=== PATIENT | female | born 1935 | race Caucasian/White ===

== ENCOUNTER 2019-06-30 01:27 | Inpatient (IN) ==
--- NOTE | 2019-06-23 13:02 | EKG Report ---
Test Performed on : 06/23/2019 12:49:15 PM Test Reason : pat Blood Pressure : / mmHG Vent. Rate : 099 BPM Atrial Rate : 300 BPM P-R Int : 000 ms QRS Dur : 134 ms QT Int : 390 ms P-R-T Axes : 000 078 011 degrees QTc Int : 500 ms Atrial fibrillation. Right bundle branch block Abnormal ECG When compared with ECG of 12-DEC-2012 04:20, Atrial fibrillation. has replaced Sinus rhythm. Right bundle branch block is now present Unconfirmed Result
[2019-06-23 13:38] LABS: HEMATOCRIT 38.5 % (37.0-47.0); HEMOGLOBIN 11.9 g/dL (12.0-16.0); MCH 26.2 PG (27-31); MCHC 30.9 g/dL (33-37); MCV 84.8 FL (81-99); RBC 4.54 XMIL (4.2-5.4); RDW 14.7 % (11.5-14.5); WBC 9.28 X1000 (4.8-10.8)
[2019-06-23 15:01] LABS: CALCIUM 9.4 mg/dL (8.8-10.2); CREATININE 0.9 mg/dL (0.5-0.9)
[2019-06-30] MEDS ORDERED: ENTEREG ONE (06:17)
[2019-06-30] MEDS ORDERED: PEPCID ONE (06:17)
[2019-06-30] MEDS ORDERED: INVANZ 1 GM/NS 1 GM/50 ML IVPB ONE (06:17)
[2019-06-30] MEDS ORDERED: LR 1,000 ML ONE ×3 (06:17→10:36)
[2019-06-30] MEDS ORDERED: TOPROL XL ONE (06:54)
[2019-06-30] MEDS ORDERED: CARDIZEM CD PO ONE (07:00)
[2019-06-30] MEDS ORDERED: DIPRIVAN 1% ONE (07:09)
[2019-06-30] MEDS ORDERED: XYLOCAINE-MPF 2% ONE (07:18)
[2019-06-30] MEDS ORDERED: ZEMURON ONE (07:18)
[2019-06-30] MEDS ORDERED: ZOFRAN ONE (07:18)
[2019-06-30] MEDS ORDERED: MARCAINE 0.25% ONE (07:34)
[2019-06-30] MEDS ORDERED: EXPAREL 1.3% ONE (07:34)
[2019-06-30] MEDS ORDERED: DECADRON ONE (09:00)
[2019-06-30] MEDS ORDERED: OFIRMEV 1000 MG/ISOTONIC SOLN 1,000 MG/100 ML BOTTLE ONE (09:03)
[2019-06-30 09:44] LABS: URINE SOURCE CATH
[2019-06-30 09:54] LABS: BILIRUBIN URINE NEGATIVE (NEGATIVE); BLOOD URINE NEGATIVE (NEGATIVE); COLOR YELLOW; GLUCOSE URINE NEGATIVE (NEGATIVE); KETONE URINE TRACE mg/dL (NEGATIVE); LEUKOCYTES URINE NEGATIVE (NEGATIVE); NITRITE URINE NEGATIVE (NEGATIVE); PH URINE 6.5; PROTEIN URINE NEGATIVE (NEGATIVE); SP GRAVITY URINE 1.005; TURBIDITY URINE CLEAR (CLEAR); UROBILINOGEN URINE NORMAL (NORMAL)
[2019-06-30 10:15] LABS: UR EPITHELIAL CELLS <10 /HPF (<10); URINE BACTERIA NEGATIVE /HPF; URINE RBC <10 /HPF (<10); URINE WBC <10 /HPF (<10)
[2019-06-30] MEDS ORDERED: DILAUDID ONE (10:47)
[2019-06-30] MEDS ORDERED: ZOFRAN IV PRN (11:20)
[2019-06-30] MEDS: DUONEB (A & A) INH SCH ×2 (16:01→19:24)
[2019-06-30] MEDS: OFIRMEV 1000 MG/ISOTONIC SOLN 1,000 MG/100 ML BOTTLE IV SCH ×2 (17:56→21:30)
[2019-06-30] MEDS: ULTRAM PO PRN (18:34)
[2019-06-30] MEDS: ZANAFLEX PO SCH (21:22)
[2019-06-30] MEDS: MIRAPEX PO SCH (21:23)
[2019-06-30] MEDS: SINGULAIR PO SCH (21:23)
[2019-06-30] MEDS: PERIDEX MT SCH (21:24)
--- NOTE | 2019-06-30 22:45 | OPERATIVE NOTE ---
PROCEDURE DATE: 06/30/2019 PREOPERATIVE DIAGNOSIS: Right-sided colon mass. POSTOPERATIVE DIAGNOSIS: Right-sided colon mass. PROCEDURE PERFORMED: Laparoscopic right colectomy. ESTIMATED BLOOD LOSS: 20 mL. SPECIMENS: Right colon. ANESTHESIA: General with a TAP block. INDICATIONS: This is an 84-year-old female, who is found to have a very friable mass in the right colon. Biopsies suggested high-grade lesion, but concerning for invasive carcinoma. Her CA was elevated and she also had some degree of partial obstruction type symptoms. OPERATIVE FINDINGS: There was a mass in the cecum, but no evidence of metastatic disease. OPERATIVE NOTE: Risks, benefits, alternatives were discussed with the patient and she consented to the procedure. Seen preoperatively and surgical site was confirmed. She was taken to the operating room, placed in the supine position. General anesthesia induced without complication. All bony prominences were padded. Her abdomen is prepped chlorhexidine solution after Awad catheter was placed and draped in usual fashion. After time-out, we made a supraumbilical incision, carried this down to the fascia. The fascia was incised and a 12 mm Jonh trocar was placed. We insufflated the abdomen. There was no injury to underlying structures. We then placed a 5 mm trocar in the lower midline and a 12 mm trocar in the left lower quadrant. She was placed in steep Trendelenburg left side down. We identified the terminal ileum and we elevated this at the ileocecal valve, identifying the ileocolic pedicle. We used scored the mesentery around this and encircled the ileocolic pedicle and using a vascular load stapler divided this. We then continued our medial to lateral dissection protecting the duodenum out laterally and up to the hepatic flexure. We divided the mesentery of the colon up to the transverse colon transection point into the terminal ileum and our proximal transection point. A purple load Endo stapler was used to divide the terminal ileum. We then completed our lateral dissection, fully mobilizing the right side of the colon. At this point, we extended our Jonh trocar midline incision and brought out the specimen, identifying the distal transection point, and well vascularized portion of the colon. The colon was then resected using a subsequent fire of the purple load stapler, passing the specimen off. We had a high lymphadenectomy and adequate margins proximally and distally. At this point, we brought out our terminal ileum. It also was well perfused and we oriented a [id number] anastomosis. We removed the staple line on the corners and fired the 60 mm purple load stapler a common enterotomy. A second fire was used to close the common enterotomy resecting the distal portion of the terminal ileum and the proximal portion of transverse colon. We imbricated the corners in the junction to the staple lines. It was well perfused and was patent. An off-loading suture was placed. We placed this back in the right upper quadrant. We noted hemostasis. At this point, we also had an Bret wound protector in place and there was no spillage of enteric contents. I removed the wound protector, changed our gloves, got rid of any dirty instruments. We closed the fascia with a #1 single strand PDS suture, irrigated the superficial wounds. We also closed the left lower quadrant incision with a 0 Vicryl. Skin was closed surgical clips. She has tolerated well. No complications. Transferred to recovery. I spoke with family. cc: Abby Gallardo MD
[2019-07-01] MEDS: DUONEB (A & A) INH SCH ×5 (03:19→22:42)
[2019-07-01] MEDS: OFIRMEV 1000 MG/ISOTONIC SOLN 1,000 MG/100 ML BOTTLE IV SCH ×2 (03:47→09:34)
[2019-07-01] MEDS: LR 1,000 ML IV SCH ×3 (03:50→18:15)
[2019-07-01 06:58] LABS: BASO# 0.02 X1000 (0.0-0.2); BASO% 0.2 % (0.0-0.8); EOS# 0.01 X1000 (0.0-0.7); EOS% 0.1 % (0.0-10.0); HEMATOCRIT 34.4 % (37.0-47.0); HEMOGLOBIN 10.6 g/dL (12.0-16.0); LYMPH# 0.45 X1000 (1.2-3.4); MCH 26.3 PG (27-31); MCHC 30.8 g/dL (33-37); MCV 85.4 FL (81-99); MONO# 0.62 X1000 (0.11-0.59); MONO% 6.9 % (1.7-9.3); MPV 9.3 FL (7.4-10.4); NEUT# 7.85 X1000 (1.4-6.5); NEUT% 87.8 % (42.2-75.2); PLT 254 X1000 (130-400); RBC 4.03 XMIL (4.2-5.4); RDW 14.6 % (11.5-14.5); WBC 8.95 X1000 (4.8-10.8)
[2019-07-01 07:16] LABS: CALCIUM 8.5 mg/dL (8.8-10.2); CREATININE 0.9 mg/dL (0.5-0.9)
[2019-07-01] MEDS: LOVENOX SUBQ SCH (09:33)
[2019-07-01] MEDS: ENTEREG PO SCH ×2 (09:33→20:24)
[2019-07-01] MEDS: CARDIZEM CD PO SCH (09:33)
[2019-07-01] MEDS: ZANAFLEX PO SCH ×2 (09:33→20:25)
[2019-07-01] MEDS: TOPROL XL PO SCH (09:34)
[2019-07-01] MEDS: MAG-OX PO SCH (09:34)
[2019-07-01] MEDS: PERIDEX MT SCH ×2 (18:07→20:24)
[2019-07-01] MEDS: ULTRAM PO PRN (18:17)
[2019-07-01] MEDS: MIRAPEX PO SCH (20:24)
[2019-07-01] MEDS: SINGULAIR PO SCH (20:24)
--- NOTE | 2019-07-01 22:21 | GENERAL SURGERY PROGRESS NOTE ---
DATE: 07/01/2019 SUBJECTIVE: She is doing well. She is in the chair. She has ambulated. No shortness of breath. She is on stable amounts of nasal cannula. OBJECTIVE: Pulse 83. No fevers. Blood pressure 118/77. Abdomen is soft. Incision dressings are in place. LABORATORY DATA: White count is 8, hematocrit 34. Creatinine 0.9. ASSESSMENT AND PLAN: This is an 84-year-old female, status post laparoscopic right colectomy. She is doing well. We will remove her Awad and continue mobility. We will advance her diet with return of bowel function. cc: Abby Gallardo MD
[2019-07-02] MEDS: DUONEB (A & A) INH SCH ×3 (03:24→16:13)
[2019-07-02] MEDS: ENTEREG PO SCH (09:07)
[2019-07-02] MEDS: TOPROL XL PO SCH (09:07)
[2019-07-02] MEDS: MAG-OX PO SCH (09:07)
[2019-07-02] MEDS: CARDIZEM CD PO SCH (09:08)
[2019-07-02] MEDS: ZANAFLEX PO SCH (09:08)
[2019-07-02] MEDS: PERIDEX MT SCH (09:08)
[2019-07-02] MEDS: LOVENOX SUBQ SCH (09:09)
[2019-07-02 11:18] VITALS: BP 97/51
--- NOTE | 2019-07-03 09:32 | DISCHARGE SUMMARY ---
ADMISSION DATE: 06/30/2019 DISCHARGE DATE: 07/02/2019 ADMITTING DIAGNOSIS: Right colon mass. DISCHARGE DIAGNOSIS: Right colon mass. PROCEDURE PERFORMED: Laparoscopic right colectomy. HISTORY OF PRESENT ILLNESS: This 84-year-old female was found to have a right colon mass concerning for malignancy. HOSPITAL COURSE: Patient was seen on the day of her surgery which was 06/30, and was cleared by Anesthesia for above procedure. For details, please see dictated operative note. Postoperatively, she was admitted to my service. She was started on clear liquids which she tolerated. Awad was removed on postop day 1. She was continued on prophylactic Lovenox. Postop labs were appropriate. She is able to ambulate with help of physical therapy, and was near her baseline. She is on 2 L nasal cannula which she is on chronically. She was continued on appropriate home medication. Postop day 2, we advanced her diet to soft. She tolerated this. Physical Therapy recommended home PT, and our secondary social studies teacher arranged this since we felt safe for discharge. Her abdomen is soft. Incisions are intact. No cellulitis. Follow up with me on Saturday. Disposition home with home health in the care of her family. Discharge instructions were given in written and verbal format. MEDICATIONS: We will continue home medications. I gave her prescription for Ultram and Colace. DISCHARGE DIET: GI soft. cc: Abby Gallardo MD
== END 2019-07-02 16:27 | disposition home health service (06) | DRG 331 ==
LOC: SURHOLD 01:27 → 4N 10:08
PROVIDERS: ADMIT Surgery; ATTEND Surgery

== ENCOUNTER 2019-07-09 18:52 | Inpatient (IN) ==
--- NOTE | 2019-07-09 18:56 | PROVIDER DOCUMENTATION ---
HPI-General Adult - General Stated Complaint: Abdominal Pain Time Seen by Provider: 07/09/19 18:55 Source: patient Allergies/Adverse Reactions: Patient Allergies Allergy/AdvReac Type Severity Reaction Status Date / Time Sulfa (Sulfonamide Allergy Intermediate HIVES Verified 07/09/19 20:04 Antibiotics) Penicillins Allergy Unknown RASH Verified 07/09/19 20:04 Home Medications: Home Medication List Medication Instructions Recorded Confirmed Last Taken Type 4hnpt-Bt-Swfx 2 tab PO DAILY 12/12/12 06/30/19 06/29/19 07:00 History Alprazolam [Xanax] 0.25 mg PO DAILY 12/12/12 06/30/19 06/29/19 07:00 History Pramipexole [Mirapex] 0.25 mg PO QHS 12/12/12 06/30/19 06/29/19 19:00 History Acetaminophen [Tylenol] 500 mg PO Q6H PRN PRN 06/23/19 06/30/19 06/29/19 12:00 History Cholecalciferol (Vitamin D3) 2,000 unit PO DAILY 06/23/19 06/23/19 Unknown History [Vitamin D3] Diltiazem HCl [Cartia Xt] 180 mg PO DAILY 06/23/19 06/23/19 Unknown History Furosemide 20 mg PO QAM 06/23/19 06/30/19 06/29/19 07:00 History Ipratropium/Albuterol Sulfate 3 ml INHALATION Q6HR 06/23/19 06/30/19 06/29/19 13:00 History [Iprat-Albut 0.5-3(2.5) mg/3 ml] Metoprolol Succinate E.r. [Toprol 25 mg PO DAILY 06/23/19 06/23/19 Unknown History Xl] Montelukast Sodium 10 mg PO HS 06/23/19 06/30/19 06/29/19 19:00 History Tizanidine HCl 2 mg PO BID 06/23/19 06/30/19 06/29/19 19:00 History Trazodone [Desyrel] 50 mg PO QHS 06/23/19 06/30/19 06/29/19 19:00 History Docusate Sodium [Colace] 100 mg PO BID #30 cap 07/02/19 Unknown Rx Tramadol HCl [Ultram] 50 mg PO Q6H PRN #20 tab 07/02/19 Unknown Rx - History of Present Illness -Gen Adult Nature of Presenting Problems: Pt. is 84 yof that presents with c/o abd pain that began this morning. She reports Dr. Julio Gallardo removed a polyp from her colon about a week ago and she has been fine up until today. Pt. states her last normal BM was last night. She denies any other complaints. Location of Pain/Injury: reports: abdomen. denies: none, head, face, mouth, neck, chest, upper extremity, hand(s), back, pelvis, genitalia, lower extremity, feet, upper body, lower body, generalized, other Pain Radiation: reports: no radiation. denies: arm(s), back, buttocks, chest, epigastric, feet, groin, jaw, flank (L), legs (lower), LLQ, LUQ, neck, periumbilical, flank (R), RLQ, RUQ, shoulder(s), scapula, scrotal, sternal no tch, suprapubic, legs (upper), urethral, vaginal, other Quality of Pain: reports: aching. denies: burning, pressure, tightness Severity: reports: moderate. denies: mild, severe Onset/Duration: reports: abrupt, this morning Timing: reports: still present. denies: improving, constant, getting worse Context/Activities at Onset: reports: none. denies: light activity, moderate activity, vigorous activity, recent emotional stress, recent physical stress, recent trauma history, possible bad food, cold exposure, eating, out of country travel, rest, sleep, sexual activity, other Modifying Factors: improves with: nothing Associated Symptoms: reports: other (abd pain). denies: denies symptoms, anxiety, arm pain, back/neck pain, chest pain, constipation, cough, diaphoresis, diarrhea, dizziness, EENT symptoms, fatigue, fever/chills, genitourinary problems, headaches, heartburn, joint pain, loss of appetite, malaise, muscle aches, sinus congestion/drainage, nausea, rash, seizure, shortness of breath, sensory/motor loss, pain with inspiration, swelling/mass in abdomen, syncope, vomiting, weakness, trouble walking Similar Symptoms Previously?: No Recently seen or treated by another doctor?: No Review of Systems - Adult - REVIEW OF SYSTEMS - ADULT Constitutional: reports: no symptoms reported Eyes: reports: no symptoms reported Ears, Nose, Mouth & Throat: reports: no symptoms reported Cardiovascular: reports: no symptoms reported Respiratory: reports: no symptoms reported Gastrointestinal: reports: see HPI, abdominal pain. denies: diarrhea, nausea, vomiting Genitourinary: reports: no symptoms reported Musculoskeletal: reports: no symptoms reported Integumentary: reports: no symptoms reported Neurological: reports: no symptoms reported Psychiatric: reports: no symptoms reported Past History - Adult - PAST MEDICAL HISTORY-ADULT Review of Records: reports: Old Records Reviewed, Nursing Assessment Review, Medications Reviewed, Social history reviewed & non-contributory. - IMMUNIZATION STATUS Childhood Immunizations: See Nurse Assessment Flu Vaccine: See Nurse Assessment - FAMILY HISTORY Family History: reviewed, not pertinent - SOCIAL HISTORY Smoking: denies Physical Exam-General - PHYSICAL EXAM-ADULT Initial Vital Signs Reviewed: Yes - CONSTITUTIONAL General Appearance: alert, mild distress, obese. negative: anxious, slow to respond, obtunded, combative - EYES Eyes: PERRL/EOMI, pink conjunctivae - HEAD, EARS, NOSE, MOUTH & THROAT HENMT: normocephalic/atraumatic, moist mucous membranes - NECK Neck: non-tender, full range of motion, supple, normal inspection. negative: ly mphadenopathy, tender lateral, thyromegaly - RESPIRATORY Respiratory: lungs clear, normal breath sounds - CARDIOVASCULAR Cardiovascular: normal peripheral pulses, regular rate, rhythm, no edema - GASTROINTESTINAL (ABDOMEN) Abdominal Exam: normal bowel sounds, distended, tenderness. negative: guarding, rigid, rebound - LYMPHATIC Lymphatic: no adenopathy - MUSCULOSKELETAL Back Exam: normal inspection, no CVA tenderness, no vertebral tenderness Extremity: normal range of motion, non-tender, normal gait, normal inspection. negative: erythema, inflammation, swelling, tenderness Peripheral Pulses: radial (R): 2+, radial (L): 2+ - SKIN Integumentary: normal color, normal turgor, warm/dry. negative: cyanosis, jaundice, swelling - NEUROLOGIC Neurologic: grossly normal, no motor/sensory deficits - PSYCHIATRIC Psych/Mental Status: normal mood/affect, normal thought content, normal thought process, oriented x 3. negative: anxious, paranoid, tearful Progress - PLAN OF CARE/RESULTS Progress/Plan/Lab Results: Laboratory Tests 07/09/19 07/09/19 07/09/19 19:28 19:28 19:28 WBC 13.70 H RBC 4.75 Hgb 12.7 Hct 39.8 MCV 83.8 MCH 26.7 L MCHC 31.9 L RDW Std Deviation 14.7 H Plt Count 343 MPV 9.3 Neut % (Auto) 84.7 H Lymph % (Auto) 3.9 L Rapides % (Auto) 10.1 H Eos % (Auto) 1.0 Baso % (Auto) 0.3 Neut # (Auto) 11.59 H Lymph # (Auto) 0.54 L Rapides # (Auto) 1.39 H Eos # (Auto) 0.14 Baso # (Auto) 0.04 Sodium 139 Potassium 3.2 L Chloride 93 L Carbon Dioxide 24 L Anion Gap 22 BUN 13 Creatinine 0.8 Estimated GFR/1.73 m2 > 60 BUN/Creatinine Ratio 16 Glucose 85 Calculated Osmolality 277 Calcium 8.3 L Total Bilirubin 0.84 AST 11 ALT 9 L Alkaline Phosphatase 89 Creatine Kinase 30 Total Protein 6.3 Albumin 3.6 Globulin 2.7 Albumin/Globulin Ratio 1.3 Lipase 8 L Plasma Lactate 0.8 Urine Source Urine Color Urine Turbidity Urine pH Ur Specific Prospect Urine Protein Ur Glucose (Stick) Ur Ketones (Stick) Urine Blood Urine Nitrite Urine Bilirubin Urobilinogen Dipstick Urine Leukocytes Urine WBC (Auto) Urine RBC (Auto) U Epithel Cells (Auto) Urine Bacteria (Auto) 07/09/19 20:35 WBC RBC Hgb Hct MCV MCH MCHC RDW Std Deviation Plt Count MPV Neut % (Auto) Lymph % (Auto) Rapides % (Auto) Eos % (Auto) Baso % (Auto) Neut # (Auto) Lymph # (Auto) Rapides # (Auto) Eos # (Auto) Baso # (Auto) Sodium Potassium Chloride Carbon Dioxide Anion Gap BUN Creatinine Estimated GFR/1.73 m2 BUN/Creatinine Ratio Glucose Calculated Osmolality Calcium Total Bilirubin AST ALT Alkaline Phosphatase Creatine Kinase Total Protein Albumin Globulin Albumin/Globulin Ratio Lipase Plasma Lactate Urine Source CLEAN CATCH Urine Color YELLOW Urine Turbidity CLEAR Urine pH 6.0 Ur Specific Prospect 1.022 Urine Protein TRACE A Ur Glucose (Stick) NEGATIVE Ur Ketones (Stick) 60 A Urine Blood NEGATIVE Urine Nitrite POSITIVE A Urine Bilirubin NEGATIVE Urobilinogen Dipstick NORMAL Urine Leukocytes SMALL A Urine WBC (Auto) 20-40 A Urine RBC (Auto) <10 U Epithel Cells (Auto) <10 Urine Bacteria (Auto) 2+ Discussed results and plan of care with patient family. Both agree with plan and verbalizes understanding. Result Diagrams: 07/09/19 19:28 07/09/19 19:28 - CT/MRI 1 CT Study: Abdomen, Pelvis ([facility] - [address] [facility], [address], [place] [address] [facility] - [address] [place] [address] Department of Imaging Patient: MATTEO MARRERO Date: 07/09/19#: [id number] : 1935DM Status: PRE ERAcct#: [id number] Age/Sex: 84/FRoom/Bed: Loc: ED Ordering Physician: Koffi Ag Family Physician: Reason for Procedure: abd pain Signed EXAM: CT ABD/PELVIS W/IV CONT ONLY HISTORY: abd pain TECHNIQUE: CT abdomen and pelvis with intravenous contrast COMPARISON: None. FINDINGS: The heart is enlarged. There is a 10 mm stone within the gallbladder. Mild fatty infiltration of the liver. Spleen is not enlarged. There is a 19 mm artery aneurysm. Normal pancreas and adrenal glands. There are multiple scattered renal cysts. No hydronephrosis. There is thrombus in the superior mesenteric vein and right hepatic veins. Prominent atherosclerosis. Small distal bulge measuring 2.8 cm. Small abdominal pelvic ascites. Normal uterus. Neither ovary is enlarged. Urinary bladder is moderately distended and is normal. No bowel obstruction. 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 Electronically signed by Alberto Amezcua 07/09/2019 9:34 PM 07/09/192133 Interpreting Physician: Alberto Amezcua MD Dictated Date/Time: 07/09/192126 cc: Koffi Ag;) CT Results: See note - CONSULTS/PCP/HOSPITALIST Notification #1 *Consult/PCP/Hospitalist*: Dr. Nabor Gallardo Time Discussed: 21:53 Reason/Comments: Consult Consult Disposition: Admit (Admit to hospitilist and he will come see her.) #2 Consult: Dr. Baumann Time Discussed: 21:59 Reason/Comments: Admission Consult Disposition: Will see in ED, Admit Departure - Departure Date of Disposition Decision: 07/09/19 Time of Disposition Decision: 21:54 DIAGNOSIS: Mesenteric vein thrombosis, Hepatic vein thrombosis, Splenic artery aneurysm UTI (urinary tract infection) Qualifiers: Urinary tract infection type: acute cystitis Hematuria presence: without hematuria Qualified Code(s): N30.00 - Acute cystitis without hematuria Ascites Qualifiers: Ascites type: other type Qualified Code(s): R18.8 - Other ascites Disposition: ADMITTED INPATIENT 09 Certified Medical Emergency: Emergent Condition: Stable - Critical Care Note This patient required my direct & personal management of CC.: No Attestation - Physician/ CHELSEA Attestation Patient care was provided by Advanced Practice Provider:: Yes Advanced Practice Provider:: Koffi Ag Advanced Practice Provider documentation review:: The Mid-level provider documentation, treatment plan and medical decision making was reviewed by the physician who agrees with all treatment and medical decision making by the P. The physician spent face to face time with patient:: No Advanced Practice Provider documentation review:: Supervising physician onsite and consulted in the evaluation and care of this patient. The physician did not have a face to face encounter with the patient.
[2019-07-09 19:51] LABS: BASO# 0.04 X1000 (0.0-0.2); BASO% 0.3 % (0.0-0.8); EOS# 0.14 X1000 (0.0-0.7); HEMATOCRIT 39.8 % (37.0-47.0); HEMOGLOBIN 12.7 g/dL (12.0-16.0); LYMPH# 0.54 X1000 (1.2-3.4); LYMPH% 3.9 % (20.5-51.1); MCH 26.7 PG (27-31); MCHC 31.9 g/dL (33-37); MCV 83.8 FL (81-99); MONO# 1.39 X1000 (0.11-0.59); MONO% 10.1 % (1.7-9.3); MPV 9.3 FL (7.4-10.4); NEUT# 11.59 X1000 (1.4-6.5); NEUT% 84.7 % (42.2-75.2); PLT 343 X1000 (130-400); RBC 4.75 XMIL (4.2-5.4); RDW 14.7 % (11.5-14.5)
[2019-07-09 20:12] LABS: AGAP 22; ALB/GLOB RATIO 1.3; ALBUMIN 3.6 g/dL (3.5-5.0); ALKALINE PHOSPHATASE 89 U/L (32-104); BUN 13 mg/dL (8-22); CALCIUM 8.3 mg/dL (8.8-10.2); CHLORIDE 93 mmol/L (98-107); CK PROFILE 30 U/L (24-173); COSMO 277; CREATININE 0.8 mg/dL (0.5-0.9); ESTIMATED GFR > 60; GLUCOSE 85 mg/dL (70-104); GOT 11 U/L (10-30); GPT 9 U/L (10-36); LIPASE 8 U/L (13-60); POTASSIUM 3.2 mmol/L (3.5-5.1); SODIUM 139 mmol/L (136-145); TCO2 24 mmol/L (25-35); TOTAL BILIRUBIN 0.84 mg/dL (0.20-1.00); TOTAL PROTEIN 6.3 g/dL (6.3-8.3)
--- NOTE | 2019-07-09 20:46 | ED EKG INTERP ---
This chart was entered by Praveena Emanuel Scribe, acting as scribe for Zeeshan Toledo MD. EKG Interpretation - EKG Time of EKG reading by physician:: 20:40 EKG Read and Signed by:: Zeeshan Toledo EKG Interpretation (*Must complete 3 of following elements*): Abnormal Rate: 108 Rhythm: afib with RVR Attestation - Physician/ CHELSEA Attestation Patient care was provided by Advanced Practice Provider:: Yes Advanced Practice Provider:: Koffi Ag Advanced Practice Provider documentation review:: The Mid-level provider documentation, treatment plan and medical decision making was reviewed by the physician who agrees with all treatment and medical decision making by the P. The physician spent face to face time with patient:: No Advanced Practice Provider documentation review:: Supervising physician onsite and consulted in the evaluation and care of this patient. The physician did not have a face to face encounter with the patient. This chart was documented by the indicated scribe, (Praveena Emanuel Scribe) and accurately reflects the services I performed and decisions made by Tre leal Brad R., MD, as attested by the provider's signature.
[2019-07-09 20:50] LABS: URINE SOURCE CLEAN CATCH
[2019-07-09 20:53] LABS: BILIRUBIN URINE NEGATIVE (NEGATIVE); BLOOD URINE NEGATIVE (NEGATIVE); COLOR YELLOW; GLUCOSE URINE NEGATIVE (NEGATIVE); KETONE URINE 60 mg/dL (NEGATIVE); LEUKOCYTES URINE SMALL (NEGATIVE); NITRITE URINE POSITIVE (NEGATIVE); PROTEIN URINE TRACE mg/dL (NEGATIVE); SP GRAVITY URINE 1.022; TURBIDITY URINE CLEAR (CLEAR); UROBILINOGEN URINE NORMAL (NORMAL)
[2019-07-09 20:54] LABS: UR EPITHELIAL CELLS <10 /HPF (<10); URINE BACTERIA 2+ /HPF; URINE RBC <10 /HPF (<10); URINE WBC 20-40 /HPF (<10)
[2019-07-09] MEDS ORDERED: LEVAQUIN 500 MG/D5W 500 MG/100 ML IVPB IV ONE (21:02)
--- NOTE | 2019-07-09 21:37 | Diag Imaging Result Doc PS360 ---
EXAM: CT ABD/PELVIS W/IV CONT ONLY HISTORY: abd pain TECHNIQUE: CT abdomen and pelvis with intravenous contrast COMPARISON: None. FINDINGS: The heart is enlarged. There is a 10 mm stone within the gallbladder. Mild fatty infiltration of the liver. Spleen is not enlarged. There is a 19 mm artery aneurysm. Normal pancreas and adrenal glands. There are multiple scattered renal cysts. No hydronephrosis. There is thrombus in the superior mesenteric vein and right hepatic veins. Prominent atherosclerosis. Small distal bulge measuring 2.8 cm. Small abdominal pelvic ascites. Normal uterus. Neither ovary is enlarged. Urinary bladder is moderately distended and is normal. No bowel obstruction. 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 Electronically signed by Alberto Amezcua 07/09/2019 9:34 PM
[2019-07-09] MEDS ORDERED: MORPHINE IV ONE (22:01)
--- NOTE | 2019-07-09 22:07 | EKG Report ---
Test Performed on : 07/09/2019 8:40:40 PM Test Reason : epigastric pain Blood Pressure : / mmHG Vent. Rate : 108 BPM Atrial Rate : 159 BPM P-R Int : 000 ms QRS Dur : 126 ms QT Int : 382 ms P-R-T Axes : 000 033 -16 degrees QTc Int : 511 ms Atrial fibrillation. with rapid ventricular response. Right bundle branch block Abnormal ECG When compared with ECG of 23-JUN-2019 12:49, No significant change was found Unconfirmed Result
[2019-07-09] MEDS ORDERED: CARDIZEM CD PO ONE (23:24)
[2019-07-10] MEDS: NORCO-10 PO PRN (01:37)
[2019-07-10] MEDS: HEPARIN 25,000 UNITS/D5W 25,000 UNIT/250 ML IV.SOLN IV SCH ×2 (01:42→22:07)
--- NOTE | 2019-07-10 03:22 | GENERAL SURGERY CONSULTATION ---
DATE: 07/09/2019 CHIEF COMPLAINT: Abdominal pain. HISTORY OF PRESENT ILLNESS: This is an 84-year-old female who is recently status post laparoscopic right colectomy. She did well in her postoperative course and was seen end of last week and her anish removed and she was overall doing well. Over the course of the day today she developed worsening abdominal pain mostly in the upper abdomen. She has had decreased appetite over the last couple days as well. 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 She had a gallstone. 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 She denies any lower GI bleeding. In the ER, UA was obtained that showed leukocytes and nitrites. She was also found to be in atrial fibrillation with rapid ventricular response. Lactate was normal. LFTs were normal and her renal function was normal. She had a mild leukocytosis of 13.7 and her creatinine was actually up from a postoperative check. MEDICAL HISTORY: She has atrial fibrillation and hypertension. SURGICAL HISTORY: Recently status post laparoscopic right colectomy for a right colon mass that was found to be a large tubular adenoma. She had no metastatic disease. SOCIAL HISTORY: She has an attentive son. She lives at home. No tobacco, alcohol, or drugs. FAMILY HISTORY: Reviewed and noncontributory. REVIEW OF SYSTEMS: A 10-point review of systems is negative other what is mentioned in HPI. PHYSICAL EXAMINATION: Vital Signs: She is afebrile. Heart rate is 110s, as high as 130s. Blood pressure 147/83, oxygen saturation is 95%. General: She appears uncomfortable, but alert in no acute distress. HEENT: There is no scleral icterus. Cardiovascular: She has an irregular rhythm consistent with atrial fibrillation and is tachycardic. Pulmonary: No increased work of breathing. Abdomen: Soft, mildly distended, but there is no guarding. There is no rebound or rigidity. She is tender across her upper quadrants of her abdomen. Her incisions are healing well with no signs of cellulitis. Integument: Warm, dry, without jaundice. Psychiatric: Appropriate affect. Neurologic: There are no gross deficits. Peripheral vascular: Some lower extremity edema, but no upper extremity edema. LABORATORY STUDIES: White count is 13, hematocrit is 39, platelets 343,000. Creatinine is 0.8, bilirubin is normal, AST and ALT are normal, alkaline phosphatase 89, lactate is 0.8. Urinalysis is positive for nitrites and leukocytes. ASSESSMENT AND PLAN: This is an 84-year-old female with a urinary tract infection. 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 Her main portal vein does appear patent. Liver function and renal function are normal. She is in atrial fibrillation with RVR with possible dehydration related or infection mediated. I do not have a suspicion for leak. Her anastomosis seems patent. I do not see any free air. There is some bland-appearing ascites mostly in the right upper quadrant of unclear significance. More distal branches of the mesenteric veins do appear patent. It does occlude, but then reconstitutes at the junction with the inferior mesenteric vein and then the right branch of the portal vein does have thrombus in it. Given these findings, she has been started on Levaquin given her allergy profile and I agree with this. Her urine culture is pending and we will start her on a no bolus heparin drip to treat the mesenteric vein and hepatic vein thrombosis. I have had a long discussion with her son regarding these findings. We will keep her NPO, start gentle hydration. I have asked the hospitalist to see her to evaluate her atrial fibrillation with rapid ventricular response and other medical issues. We will follow her closely going forward. cc: Abby Gallardo MD
[2019-07-10] MEDS ORDERED: LEVAQUIN 500 MG/D5W 500 MG/100 ML IVPB IV ONE (05:56)
[2019-07-10] MEDS ORDERED: DUONEB (A & A) INH PRN (05:56)
[2019-07-10] MEDS ORDERED: ZANAFLEX PO PRN (05:58)
[2019-07-10] MEDS ORDERED: KLOR-CON PO ONE (06:01)
--- NOTE | 2019-07-10 06:39 | HISTORY AND PHYSICAL ---
CHIEF COMPLAINT: Abdominal pain for less than 1 day. HISTORY OF PRESENT ILLNESS: Ms. Gisela Kaminski is an 84-year-old female, who has a history of COPD, hypertension, obesity, obstructive sleep apnea, and atrial fibrillation. The patient recently had laparoscopic right colectomy done by Dr. Gallardo about 1 week ago, and she now presents with abdominal pains for less than 1 day. The pain is localized mainly to the left side of the abdomen. She denies any associated nausea or vomiting. No diarrhea or constipation. No hematemesis or hematochezia. The patient did have a CT scan of the abdomen and pelvis done at the time of presentation which showed evidence of thrombosis involving the superior mesenteric as well as right hepatic veins. The patient was also noted to have cholelithiasis as well as splenic artery aneurysm. The patient's urinalysis did show a picture suggestive of possible urinary tract infection. Her white count was about 20 to 40 WBCs per high-power field, and nitrite was positive. The patient was also noted to have a potassium level of 3.2. The patient will now be admitted to the floor for further management. PAST MEDICAL HISTORY: The patient's past medical history includes COPD, hypertension, obesity, obstructive sleep apnea, and atrial fibrillation. PAST SURGICAL HISTORY: She has had appendectomy, C-spine surgery, carpal tunnel release surgery, right wrist, right ear surgery, cataract surgery, colonic polyp removal via colonoscopy, and ovarian cystectomy. SOCIAL HISTORY: No history of cigarette smoking. No alcohol or drug use. ALLERGIES: She is allergic to penicillin as well as sulfa. FAMILY HISTORY: Positive for coronary artery disease as well as stroke. MEDICATIONS: Her medications include the following. Osteo Bi-Flex 2 tabs daily. Xanax 0.25 mg p.o. daily. Mirapex 0.25 mg p.o. at bedtime. Acetaminophen 500 mg every 6 hours p.r.n. Vitamin D 2000 units p.o. daily. Diltiazem 180 mg p.o. daily. Furosemide 20 mg p.o. q.a.m. Ipratropium/albuterol sulfate 3 mL inhalation q.6 hours. Metoprolol succinate ER 25 mg p.o. daily. Montelukast sodium 10 mg p.o. at bedtime. Tizanidine hydrochloride 2 mg p.o. twice a day. Trazodone 15 mg p.o. at bedtime. Colace 100 mg p.o. twice a day. Tramadol 50 mg p.o. q.6 hours p.r.n. REVIEW OF SYSTEMS: Constitutional: No Fever. 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 Eyes: Uses glasses. 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 Cardiovascular: Has chest pain. Respiratory: No cough. GI: No nausea or vomiting. : No dysuria. Dermatology: No skin lesions. Hematology: No bleeding problems. Musculoskeletal: Has joint pains. Endocrinology: Has no diabetes or thyroid disease. Psychiatry: Has anxiety. Allergy/Immunology: She does have symptoms suggestive of allergic rhinitis. PHYSICAL EXAMINATION: VITAL SIGNS: Temperature is 98.2 degrees, pulse 63, respiratory rate 20, blood pressure is 124/99, oxygen saturation is 98%. HEENT: She is atraumatic, normocephalic. She is anicteric. Extraocular movements intact. No significant oral lesions noted. NECK: No lymphadenopathy or thyromegaly. CARDIOVASCULAR: S1, S2. RESPIRATORY SYSTEM: Has evidence of good air entry bilaterally. ABDOMEN: Soft. No significant tenderness noted on palpation. No obvious masses felt. EXTREMITIES: No evidence of edema. Dorsalis pedis pulsation present. No evidence of cyanosis noted. CENTRAL NERVOUS SYSTEM: The patient is awake and alert. No obvious focal deficits are noted. DIAGNOSTIC DATA: WBC is 13.7, hematocrit is 39.8, with a platelet count of 343,000. Sodium is 139, potassium is 3.2, chloride is 93, bicarb 24, BUN is 13, creatinine 0.8. Urinalysis shows positive nitrites with 20 to 40 WBCs per high-power field. EKG shows evidence of atrial fibrillation with rapid ventricular rate. 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 ASSESSMENT AND PLAN: 1. 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 We will start the patient on anticoagulation and consult with the hematology team. 2. Splenic vein aneurysm. Surgical Team on board. 3. Cholelithiasis. Surgery Team on board. 4. Status post right colectomy. Optimize pain control. Surgical team on board. 5. Urinary tract infection. Obtain urine and blood cultures. Start patient on empiric antibiotics. 6. Chronic obstructive pulmonary disease. Maintain the patient on nebulized bronchodilators as needed. 7. Atrial fibrillation. Maintain patient on a rate-controlling agent. She is currently on anticoagulation (heparin). 8. Hypokalemia. Replete potassium. Check magnesium level. 9. Leukocytosis, most likely secondary to infective process (urinary tract infection). 10. Obstructive sleep apnea. The patient may use CPAP machine as she does have one from home. 11. Deep vein thrombosis prophylaxis. The patient is currently on heparin. 12. Gastrointestinal prophylaxis. Proton pump inhibitor. cc: Chang Sesay MD
[2019-07-10] MEDS: PRILOSEC PO SCH (06:47)
[2019-07-10] MEDS: DUONEB (A & A) INH SCH ×5 (08:14→23:41)
[2019-07-10 08:20] LABS: ALB/GLOB RATIO 1.5; ALBUMIN 3.2 g/dL (3.5-5.0); CALCIUM 8.3 mg/dL (8.8-10.2); CREATININE 1.4 mg/dL (0.5-0.9); POTASSIUM 3.7 mmol/L (3.5-5.1); TOTAL BILIRUBIN 0.64 mg/dL (0.20-1.00); TOTAL PROTEIN 5.4 g/dL (6.3-8.3)
[2019-07-10 08:21] LABS: BASO# 0.05 X1000 (0.0-0.2); BASO% 0.2 % (0.0-0.8); HEMATOCRIT 43.8 % (37.0-47.0); HEMOGLOBIN 13.6 g/dL (12.0-16.0); IMM GRAN# 0.08 X1000 (0.0-0.04); IMM GRAN% 0.4 % (0.0-0.5); LYMPH# 0.61 X1000 (1.2-3.4); LYMPH% 2.7 % (20.5-51.1); MCH 25.8 PG (27-31); MCHC 31.1 g/dL (33-37); MCV 83.1 FL (81-99); MONO# 2.02 X1000 (0.11-0.59); MONO% 9.1 % (1.7-9.3); MPV 9.9 FL (7.4-10.4); NEUT# 19.53 X1000 (1.4-6.5); NEUT% 87.6 % (42.2-75.2); PLT 427 X1000 (130-400); RBC 5.27 XMIL (4.2-5.4); RDW 14.7 % (11.5-14.5); WBC 22.29 X1000 (4.8-10.8)
[2019-07-10] MEDS ORDERED: LR 1,000 ML IV SCH (09:00)
[2019-07-10 09:03] LABS: BANDS 5 % (0-1); LARGE PLATELETS OCCASIONAL; MONO 8 % (1-9); SEGS 87 % (42-75)
[2019-07-10 09:05] LABS: POIKILOCYTOSIS 1+
--- NOTE | 2019-07-10 11:47 | GENERAL SURGERY PROGRESS NOTE ---
DATE: 07/10/2019 SUBJECTIVE: She feels better. She is more alert. Her heart rate is now 81. Blood pressure 132/66, says her abdominal pain is much better. She is actually asking for food. OBJECTIVE: Vital Signs: She is alert. Cardiovascular: Normal rate. Pulmonary: No increased work of breathing. Abdomen: Soft, nontender, nondistended. Incisions are intact. LABORATORY DATA: White count up to 22, hematocrit 43, platelets 427,000. Creatinine is up to 1.4. Her bilirubin, AST, ALT, and alkaline phosphatase remain normal. Troponins are clear. ASSESSMENT AND PLAN: This is an 84-year-old female who is about 2 weeks out from laparoscopic right colectomy. She presented with abdominal pain, found to have a UTI as well as superior mesenteric vein and right hepatic portal vein thrombus. We started her on heparin and Zosyn and fluoroquinolones for her urinary tract infection and she seems to be clinically improving. I do not have any suspicion for ischemia based off her labs or her examination, but we will continue to monitor closely. We will keep her on bowel rest today. I have started her on fluids. Her potassium is better, but her creatinine is up suggesting some degree of pre-renal issues. cc: Abby Gallardo MD
[2019-07-10] MEDS: NS 1,000 ML IV SCH (12:10)
[2019-07-10] MEDS: XANAX PO SCH (13:31)
[2019-07-10] MEDS: CARDIZEM CD PO SCH (13:31)
--- NOTE | 2019-07-10 13:38 | PROGRESS NOTE ---
DATE: 07/10/2019 SUBJECTIVE: This patient is lying comfortably in bed. Her abdomen is distended, some decreased bowel sounds but as per the patient, she is in pain but not that much. As per the patient, she is not passing gas either, but she is not complaining of nausea, vomiting either. She recently had a surgery done and I believe a colectomy has been done due to a polyp. As per the patient, this is benign. Surgery Department on board as well as Hematology Oncology Department due to thrombosis of the superior mesenteric vein as well as right hepatic vein. OBJECTIVE: Vital Signs: Temperature 98.1 degrees, pulse 81, respiratory rate 15, blood pressure 132/66, oxygen saturation 94% on 3 L of nasal cannula. HEENT: Head normocephalic, no trauma. PERRLA. Neck: Supple. No JVD. No masses. Central trachea. Chest: Decreased breath sounds at the bases with some crepitus. Abdomen: Soft, mild to moderate distention, decreased bowel sounds but present. She does have multiple scar tissues from recent surgery. No signs of infection. She had a laparoscopic procedure done. Extremities: No edema, no clubbing, no cyanosis. Neurological: The patient is completely awake, alert, and oriented x3. No focal deficits. LABORATORY DATA: WBC 22.2, hemoglobin 13.6, hematocrit 43.8, platelets 427,000. Sodium 142, potassium 3.7, chloride 96, bicarbonate 21, BUN 18, creatinine 1.4, glucose 84, calcium 8.3. Troponins negative x2. Albumin 3.2. ASSESSMENT AND PLAN: 1. 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 Continue with anticoagulation with heparin. Hematology Oncology Department consulted. We will continue with same management. I do believe she is going to have a new CT scan done, probably at the level of the chest to rule out malignancy. 2. Splenic vein aneurysm. Surgical team on board. We will continue to monitor. 3. Status post right colectomy, laparoscopic. Wound seems to be good and her abdomen is still having some distention, but she does have some bowel sounds but decreased. As per the patient, she is not passing gas. 4. Cholelithiasis. We will monitor. 5. Urinary tract infection. Her white blood cell count increased from 13 to 22 even though she is on ceftriaxone. She is not having fever or chills. I will continue with the same management and I will monitor. 6. Chronic obstructive pulmonary disease, not in exacerbation. 7. Atrial fibrillation. This patient is on anticoagulation with heparin drip. Continue with rate control medication. 8. Hypokalemia, resolved. 9. Leukocytosis, likely secondary to infectious process and also I believe some component of reactive increased. 10. Obstructive sleep apnea. Continue to monitor. 11. Deep vein thrombosis prophylaxis. She is on heparin drip. 12. Gastrointestinal prophylaxis with proton pump inhibitor. I discussed with the patient her advanced directive and she has decided to be full code for now. cc: Abilio Franco MD
--- NOTE | 2019-07-10 15:28 | Diag Imaging Result Doc PS360 ---
EXAM: CT THORAX W/WO CONTRAST HISTORY: R/O malignancy TECHNIQUE: CT chest with and without intravenous contrast COMPARISON: None. FINDINGS: Trace pleural fluid. The heart is enlarged. There is pulmonary edema. No aortic aneurysm or dissection. No large central pulmonary emboli. No enlarged lymph nodes. Severe emphysema. Basilar atelectasis. No lung mass identified. IMPRESSION: 1.Cardiomegaly with pulmonary edema and tiny effusions 2.Severe emphysema This exam was performed using automated exposure control, adjustment of mA or kV according to patient size, and/or use of iterative reconstruction technique. Electronically signed by Alberto Amezcua 07/10/2019 3:25 PM
[2019-07-10 15:50] LABS: INR 1.41; PROTIME 17.5 Seconds (11.0-16.0)
[2019-07-10 15:56] LABS: PTT 87.5 Seconds (22.3-41.8)
[2019-07-10] MEDS: GLUCOSAMINE 500 MG/CHONDROITIN 400 MG PO SCH (16:21)
[2019-07-10] MEDS: VITAMIN D PO SCH (16:24)
[2019-07-10] MEDS: MIRAPEX PO SCH (22:03)
[2019-07-10] MEDS: SINGULAIR PO SCH (22:03)
[2019-07-11] MEDS: NS 1,000 ML IV SCH ×4 (03:00→20:57)
[2019-07-11] MEDS: DUONEB (A & A) INH SCH ×6 (03:45→23:25)
[2019-07-11 05:41] LABS: BASO# 0.04 X1000 (0.0-0.2); BASO% 0.2 % (0.0-0.8); HEMATOCRIT 36.6 % (37.0-47.0); HEMOGLOBIN 11.5 g/dL (12.0-16.0); IMM GRAN# 0.12 X1000 (0.0-0.04); IMM GRAN% 0.5 % (0.0-0.5); LYMPH% 3.1 % (20.5-51.1); MCH 26.3 PG (27-31); MCHC 31.4 g/dL (33-37); MCV 83.6 FL (81-99); MONO# 2.59 X1000 (0.11-0.59); MONO% 11.5 % (1.7-9.3); MPV 9.8 FL (7.4-10.4); NEUT# 19.14 X1000 (1.4-6.5); NEUT% 84.7 % (42.2-75.2); PLT 426 X1000 (130-400); RBC 4.38 XMIL (4.2-5.4); RDW 15.2 % (11.5-14.5); WBC 22.59 X1000 (4.8-10.8)
[2019-07-11 05:56] LABS: ALB/GLOB RATIO 0.8; ALBUMIN 2.5 g/dL (3.5-5.0); CALCIUM 7.4 mg/dL (8.8-10.2); PHOSPHORUS 5.4 mg/dL (2.7-4.5); POTASSIUM 3.3 mmol/L (3.5-5.1); TOTAL BILIRUBIN 0.42 mg/dL (0.20-1.00); TOTAL PROTEIN 5.6 g/dL (6.3-8.3)
[2019-07-11 06:07] LABS: BANDS 2 % (0-1); LYMPHS 4 % (21-51); SEGS 90 % (42-75)
[2019-07-11] MEDS ORDERED: HEPARIN 25,000 UNITS/D5W 25,000 UNIT/250 ML IV.SOLN IV SCH (06:13)
[2019-07-11] MEDS ORDERED: MAGNESIUM SULFATE 2 GM/S.W.I. 2 GM/50 ML IVPB IV ONE (09:45)
[2019-07-11] MEDS: XANAX PO SCH (10:55)
[2019-07-11] MEDS: PRILOSEC PO SCH (10:55)
[2019-07-11] MEDS: VITAMIN D PO SCH (10:56)
[2019-07-11] MEDS: CARDIZEM CD PO SCH (10:57)
[2019-07-11] MEDS: GLUCOSAMINE 500 MG/CHONDROITIN 400 MG PO SCH (10:58)
--- NOTE | 2019-07-11 10:59 | GENERAL SURGERY PROGRESS NOTE ---
DATE: 07/11/2019 SUBJECTIVE: She is doing okay. She says she feels better. She has some stuff in the drain. OBJECTIVE: On exam she is alert. There are no fevers. Pulse has fluctuated, but overall the rate controlled. Oxygen saturation 100% on 2 L. Blood pressure 112/44.General: She is alert. Her abdomen is soft. Her incisions are intact. LABS: White count is stable at 22, hematocrit 36, I suspect this is more a product of hydration. Unfortunately, her creatinine is up to 3. It was 1.4 yesterday. Bilirubin is normal. AST, ALT, and alkaline phosphatase are normal still. Her microbiology showed gram- positive cocci in her urine. She has been started on Zyvox by the hospitalists. ASSESSMENT AND PLAN: This is an 84-year-old female admitted with urinary tract infection, gram- positive cocci. She was found to have superior mesenteric vein and portal vein thrombi. She is on heparin drip for this. Creatinine initially elevated at 1.4. Fortunately, a CT scan of the chest was ordered with contrast Will monitor. Continue gentle hydration and follow her electrolytes. She does seem to be making adequate urine. cc: Abby Gallardo MD [facility]
--- NOTE | 2019-07-11 11:39 | PROGRESS NOTE ---
DATE: 07/11/2019 SUBJECTIVE: This patient is lying in bed. Her abdomen is distended. Decreased bowel sounds, but she still has some. As per the patient, she has not been passing gas. She is not complaining of nausea or vomiting. Recently, she had a surgery done, and I believe a colectomy has been done due to a polyp, that was done laparoscopically. Surgery Department already evaluated this patient. She has been placed n.p.o., but I do believe she can be started on a liquid diet at least. I will let the surgeon to decide on that. Hematology/Oncology Department also evaluated this patient. They have requested some studies to rule out an underlying malignancy. We did a CT scan of the abdomen and pelvis that showed superior mesenteric vein and right hepatic vein thrombosis. She has also a splenic artery aneurysm, some ascites. CT scan of the chest shows cardiomegaly with pulmonary edema and tiny effusions; also showed severe emphysema. So, this patient has multiple comorbidities, and today I checked the lab work, and the WBC is about the same compared with yesterday elevated at 22,000, and now she is presenting with an increased BUN and creatinine that basically doubled from yesterday. Creatinine initially was 0.8 and increased to 1.4 and today is 3. BUN from 13 to 18 and now 30, even though she has been getting IV fluids at 125 mL/hour, which I will decrease a little bit to 100 due to some fluid overload on my physical exam and images. I will replace the magnesium; it is 1.4 today. PHYSICAL EXAMINATION: Vital Signs: Temperature 97.8 degrees, pulse 97, respiratory rate 16, blood pressure 112/44, oxygen saturation 100% on 2 L of nasal cannula. HEENT: Head normocephalic, no trauma. PERRLA. Neck: Neck is supple. No JVD, no masses. Central trachea. Chest: Decreased breath sounds globally with crepitus mostly at the bases. Abdomen: Soft. Mild to moderate distention. Decreased bowel sounds, but present. She does have multiple new scars from recent surgery, but no signs of infection on those wounds. She had a laparoscopic procedure done. Extremities: Trace to 1+ edema. No clubbing. No cyanosis. Neurological examination: The patient is awake, alert. She is answering my questions. She is oriented x3. LABORATORY: WBC 22.5, hemoglobin 11.5, hematocrit 36.6, platelets 426. Sodium 135, potassium 2.3, chloride 95, bicarbonate 23. BUN 30, creatinine 3, glucose 146, calcium 7.4, phosphorus 5.4, magnesium 1.4, albumin 2.5. ASSESSMENT AND PLAN: 1. Thrombosis involving the superior mesenteric vein, as well as right hepatic vein. We will continue with anticoagulation with heparin. Hematology/Oncology Department following this patient. They have requested multiple studies to rule out an underlying malignancy. CT scan of the chest showed cardiomegaly, some pleural effusion and severe emphysema, but no masses. We will continue with same management. 2. Splenic vein aneurysm. Surgical team on board. We will continue to monitor. 3. Acute kidney injury. I am not quite sure why this patient's kidney function is declining. Creatinine increased from 1.4 to 3, as well as urine output, even though she has been getting normal saline at 125 mL/hour, which I have to decrease due to some fluid overload. I have requested an evaluation by Nephrology Department. Also, I have requested a renal ultrasound and some lab work. I will continue to monitor and I will wait for recommendations. 4. Status post right colectomy, laparoscopically. Apparently she had a polyp that was big and they were not able to remove endoscopically. So she had a laparoscopic cholecystectomy done. The wound looks fine. The abdomen is moderately distended with decreased bowel sounds. 5. Cholelithiasis. We will monitor. 6. Urinary tract infection. Her white blood cell count is still high, and the urine culture showed gram-positive cocci. I will continue with levofloxacin, but I will put this patient on Zyvox. I was thinking about putting this patient on vancomycin, but her kidney function is not good. 7. Chronic obstructive pulmonary disease. Chest CT scan showed severe emphysema. She is not having an acute exacerbation at this moment. 8. Atrial fibrillation. Continue with anticoagulation with heparin drip. Continue with rate control medication. 9. Hypokalemia. She is still slightly hypokalemic, but I will not replace it due to her acute kidney injury. 10. Leukocytosis likely secondary to the infectious process. 11. Obstructive sleep apnea. Continue to monitor. 12. Deep vein thrombosis prophylaxis. She is on heparin drip. 13. Gastrointestinal prophylaxis with proton pump inhibitor. 14. Hypomagnesemia. I will replace the magnesium today. cc: Abilio Franco MD
[2019-07-11] MEDS: LEVAQUIN 250 MG/D5W 250 MG/50 ML IVPB IV SCH (11:52)
[2019-07-11] MEDS: ZYVOX 600 MG/D5W 600 MG/300 ML IVPB IV SCH ×2 (13:42→20:58)
--- NOTE | 2019-07-11 14:42 | Diag Imaging Result Doc PS360 ---
EXAM: US RENAL 2 (RETROPER) COMPLETE - 07/11/2019 HISTORY: juan/arf TECHNIQUE: Bilateral renal ultrasound COMPARISON: None. FINDINGS: The right kidney measures 11 x 5.3 x 5.1 cm in size, and has cortical thickness proximally 0.9 cm. The left kidney measures 11.1 x 5.8 x 5.4 cm in size, and has cortical thickness of approximately 0.8 cm. There are apparent small bilateral renal cysts. There is no discrete solid renal mass, renal stone, or hydronephrosis identified. The urinary bladder is decompressed by Awad catheter and is not evaluated. There is a shadowing gallstone noted in the gallbladder. IMPRESSION: Small renal cysts. No hydronephrosis. Gallstone noted in gallbladder. Electronically signed by Deni Lynch 07/11/2019 2:39 PM
[2019-07-11 14:44] LABS: URINE SOURCE CATH
[2019-07-11 14:50] LABS: BILIRUBIN URINE NEGATIVE (NEGATIVE); BLOOD URINE LARGE (NEGATIVE); COLOR YELLOW; GLUCOSE URINE NEGATIVE (NEGATIVE); KETONE URINE TRACE mg/dL (NEGATIVE); LEUKOCYTES URINE LARGE (NEGATIVE); NITRITE URINE NEGATIVE (NEGATIVE); PROTEIN URINE 50 mg/dL (NEGATIVE); TURBIDITY URINE TURBID (CLEAR); UROBILINOGEN URINE NORMAL (NORMAL)
--- NOTE | 2019-07-11 14:54 | NEPHROLOGY CONSULTATION ---
DATE: 07/11/2019 REASON FOR CONSULTATION: Acute kidney injury. HISTORY OF PRESENT ILLNESS: Ms. Kaminski is an 84-year-old, white female who had a recent laparoscopic right colectomy for abdominal mass. 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 Margins were negative for adenomatous change or carcinoma and lymph nodes were negative. She was well until when she began having abdominal pain. This pain was localized to the left side of the abdomen and was not associated with nausea, vomiting or diarrhea. Her symptoms were worsening in severity so she came to the emergency room for evaluation. Her initial vital signs found blood pressure 138/80 with heart rate 112 and she was afebrile. Her initial creatinine was 0.8. Her clinical picture demanded abdominal imaging using IV contrast. This was performed on 07/09/[address] abdomen, pelvis with contrast. This study demonstrated superior mesenteric and right hepatic vein thromboses. As a result she has been treated with IV heparin. She furthermore required CT chest with contrast on the . She has not received any nephrotoxic medications. Her creatinine chela from 0.8 to 1.4 on day 2 and 3.0 today. Urine output has been low in the last 12 hours. She has not had any kidney disease before of which she is aware. PAST MEDICAL HISTORY: As above. She also has a history of COPD, obstructive sleep apnea, hypertension, atrial fibrillation. HOME MEDICATIONS: Include Xanax, Mirapex, acetaminophen, vitamin D, diltiazem, furosemide, ipratropium, albuterol, metoprolol, montelukast, tizanidine, trazodone, Colace, tramadol. ALLERGIES: Penicillin and sulfa. SOCIAL HISTORY: No alcohol or tobacco. She is attended by her son. FAMILY HISTORY AND REVIEW OF SYSTEMS: Are noncontributory. PHYSICAL EXAMINATION: Vital Signs: Blood pressure 123/93, heart rate 121, respirations 16, temperature 99.3 degrees. Generally: She is an elderly woman, in no apparent distress. Skin: Is dry, pale. HEENT: Conjunctivae are pink, moist. Pupils equal, round. Oropharynx not examined. Neck: Supple. Trachea is midline. Neck vein distention is not present. Heart: PMI is not palpable. Irregular rhythm with tachycardia. Lungs: Have equal breath sounds. No crackles or wheezes. Abdomen: Modestly tender diffusely. Decreased bowel sounds. No palpable organomegaly. No guarding or rebound. Extremities: No edema, clubbing or cyanosis. Neurologic: Nonfocal. IMPRESSION: Acute kidney injury. Likely ischemic acute tubular necrosis with several possible causes. CT with contrast is likely an important contributor. It is unlikely that she has renal vein thrombosis given the lack of kidney pain, increased kidney size or hematuria. She does not meet criteria for dialysis today. We will check urine electrolytes and urine protein for completeness. I have reviewed her medications and no changes are required at this time. I agree with gentle IV fluids. We will follow with you. cc: Dmitry Hernandez MD
[2019-07-11 14:59] LABS: UR PROT RANDOM 93.6 mg/dL
[2019-07-11 15:02] LABS: SP GRAVITY URINE 1.015; UR EPITHELIAL CELLS <10 /HPF (<10); URINE BACTERIA NEGATIVE /HPF; URINE RBC 20-40 /HPF (<10); URINE WBC TNTC /HPF (<10)
[2019-07-11 15:09] LABS: URINE CASTS NONE SEEN; URINE CRYSTALS NONE SEEN; URINE YEAST NONE SEEN
[2019-07-11] MEDS: HEPARIN 25,000 UNITS/D5W 25,000 UNIT/250 ML IV.SOLN IV SCH ×2 (17:23→22:36)
[2019-07-11] MEDS: MIRAPEX PO SCH (20:58)
[2019-07-11] MEDS: SINGULAIR PO SCH (20:58)
[2019-07-11] MEDS: NORCO-10 PO PRN (22:35)
[2019-07-12] MEDS: DUONEB (A & A) INH SCH ×6 (03:41→23:19)
[2019-07-12 05:47] LABS: BASO# 0.03 X1000 (0.0-0.2); BASO% 0.1 % (0.0-0.8); HEMOGLOBIN 10.3 g/dL (12.0-16.0); IMM GRAN% 0.4 % (0.0-0.5); LYMPH# 0.53 X1000 (1.2-3.4); LYMPH% 2.4 % (20.5-51.1); MCH 25.9 PG (27-31); MCHC 31.2 g/dL (33-37); MCV 82.9 FL (81-99); MONO# 1.78 X1000 (0.11-0.59); MONO% 7.9 % (1.7-9.3); MPV 9.2 FL (7.4-10.4); NEUT# 20.05 X1000 (1.4-6.5); NEUT% 89.2 % (42.2-75.2); PLT 400 X1000 (130-400); RBC 3.98 XMIL (4.2-5.4); RDW 15.3 % (11.5-14.5); WBC 22.49 X1000 (4.8-10.8)
[2019-07-12 06:15] LABS: ALB/GLOB RATIO 0.8; ALBUMIN 2.6 g/dL (3.5-5.0); CALCIUM 7.3 mg/dL (8.8-10.2); CREATININE 3.8 mg/dL (0.5-0.9); POTASSIUM 3.3 mmol/L (3.5-5.1); TOTAL BILIRUBIN 0.38 mg/dL (0.20-1.00); TOTAL PROTEIN 5.8 g/dL (6.3-8.3)
[2019-07-12] MEDS: NS 1,000 ML IV SCH ×2 (06:17→18:48)
[2019-07-12] MEDS: PRILOSEC PO SCH (06:17)
--- NOTE | 2019-07-12 08:39 | Diag Imaging Result Doc PS360 ---
EXAM: CHEST-PORTABLE HISTORY: SOB TECHNIQUE: Single view COMPARISON: 08/09/2017 FINDINGS: Poor inspiratory effort. The heart is enlarged. Mild vascular distention. Infiltrates or atelectasis in the lower left lung. No pleural effusions identified. IMPRESSION: Cardiomegaly with mild pulmonary edema and basilar atelectasis. There could be underlying pneumonia as well. Follow-up PA and lateral recommended. Electronically signed by Alberto Amezcua 07/12/2019 8:37 AM
[2019-07-12] MEDS: LEVAQUIN 250 MG/D5W 250 MG/50 ML IVPB IV SCH (09:16)
[2019-07-12] MEDS: VITAMIN D PO SCH (09:16)
[2019-07-12] MEDS: XANAX PO SCH (09:16)
[2019-07-12] MEDS: GLUCOSAMINE 500 MG/CHONDROITIN 400 MG PO SCH (09:16)
[2019-07-12] MEDS ORDERED: DULCOLAX PR ONE (10:20)
[2019-07-12] MEDS: ZYVOX 600 MG/D5W 600 MG/300 ML IVPB IV SCH ×2 (10:45→21:36)
--- NOTE | 2019-07-12 10:51 | PROGRESS NOTE ---
DATE: 07/12/2019 SUBJECTIVE: The patient is lying in bed. Her abdomen seems to be less distended, less painful. She has not been passing gas. She is not complaining of nausea or vomiting. She is complaining of some cough, and she is tired. Her kidney function is worse. Her potassium is 3.3, and the bicarb is 22. I will continue with gentle hydration, and I will follow the recommendations of Nephrology Department. OBJECTIVE: Vital Signs: Temperature 97.5 degrees, pulse 91, respiratory rate 15, blood pressure 114/56, oxygen saturation 93 on 4 L of nasal cannula. HEENT: Head normocephalic. No trauma. PERRLA. Neck: Supple. No JVD. No masses. Central trachea. Chest: Clear to auscultation. Some crepitus at the bases. Decreased at the bases as well. Abdomen: Soft, protuberant, slightly distended. Decreased bowel sounds, but present. She does have multiple new scars from recent surgery, but no signs of infection on those wounds. She had a laparoscopic procedure done. Extremities: Trace to 1+ edema. No clubbing. No cyanosis. Neurological: The patient is awake, alert. She is answering my questions. She is oriented x3. LABORATORY DATA: WBC 22.4, hemoglobin 10.3, hematocrit 33, platelets 400,000. Sodium 136, potassium 3.3, chloride 94, bicarbonate 22, BUN 39, creatinine 3.8, glucose 135, calcium 7.3, AST 12, ALT 8, alkaline phosphatase 77, albumin 2.6. ASSESSMENT AND PLAN: 1. 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 Continue with anticoagulation and heparin drip. Hematology/Oncology following this patient. 2. Splenic vein aneurysm. Surgery Department on board. 3. Acute kidney injury. It is possible that this is a contrast-related acute kidney injury from previous CT scans. I will continue with gentle diuresis. BUN and creatinine are trending up. Nephrology Department on board. 4. Status post right colectomy laparoscopically. She seems to be doing fine. She had a polyp that was big, and they were not able to remove endoscopically, so they decided to do a laparoscopic cholecystectomy as per the patient. 5. Cholelithiasis. Will monitor. 6. Possible urinary tract infection. She has a positive culture that showed Staphylococcus epidermidis. She still has leukocytosis. I will request an evaluation by the Infectious Disease doctor. 7. Chronic obstructive pulmonary disease. CT scan showed severe emphysema. She is not having an acute exacerbation at this moment. 8. Atrial fibrillation. Continue with anticoagulation with heparin. Rate controlled. 9. Hypokalemia. She is still hypokalemic, but I will not replace it due to her acute kidney injury, which can cause hyperkalemia. 10. Leukocytosis, likely secondary to the infectious process and the inflammatory process as well. Still elevated. 11. Obstructive sleep apnea. Continue to monitor. 12. Deep vein thrombosis prophylaxis. She is on heparin drip. 13. Gastrointestinal prophylaxis with proton pump inhibitors. 14. Hypomagnesemia is being replaced. I will order a new magnesium level in the morning tomorrow. cc: Abilio Franco MD
--- NOTE | 2019-07-12 14:34 | INFECTIOUS DISEASE CONSULT REP ---
DATE: 07/12/2019 CONCLUSION: The patient has a Staph epidermidis urinary tract infection. I think the infection could contribute to the patient's renal failure and her general sense of not feeling good. RECOMMENDATIONS: I agree with treating the patient with Levaquin. Some of the side effects of the antibiotic including rash, diarrhea, seizures, and tendon rupture have been explained to the patient who agrees with treatment. DISCUSSION: The patient approximately a week ago had a laparoscopic right colectomy performed by Dr. Gallardo. The patient tells me that she just does not feel good. She has decreased hearing. She is very weak. She easily is dyspneic after moving around. She has had a decrease in her urine output. The urine culture grew Staph epidermidis. It was susceptible to Levaquin which yesterday was started for the patient. Her laboratory studies show a CBC with a white count of 22,490, hemoglobin 10.3, platelet count 400,000. Creatinine is 3.8. GFR is 11. Blood cultures are negative. Liver function studies are normal. Chest x-ray shows cardiomegaly and pulmonary edema. Renal ultrasound shows small cysts involving the kidneys but no obstruction. PAST MEDICAL HISTORY/REVIEW OF SYSTEMS: See present illness.Eyes and ears: She has decreased hearing but her vision is good. Neck: She does not have any stiffness. Respiratory: See present illness. GI: See present illness. : See present illness. Bones, joints, muscles: She does not complain of any joint pain or muscle aches. Neurologic: The patient has not had any seizures. FRAME AND SCRAP CRUSHER HISTORY: She is a 3, para 3, AB0. PREVIOUS HOSPITALIZATIONS AND OPERATIONS: She has had labor and deliveries, an appendectomy, C- spine surgery, carpal tunnel release surgery, right wrist surgery, right ear surgery, cataract surgery, and most recently laparoscopic right colectomy. The patient also has had removal of an ovarian cyst. MEDICAL DISEASES: Positive for chronic obstructive pulmonary disease, hypertension, obesity, obstructive sleep apnea, and atrial fibrillation. INFECTIOUS DISEASE HISTORY: Positive for pneumonia and UTI. FAMILY HISTORY: Positive for stroke, myocardial infarction, cancer, and hypertension. SOCIAL HISTORY: The patient does not smoke cigarettes, drink alcoholic beverages, or abuse drugs[place] She does not have any pets at home. ALLERGIES: The patient said she is allergic to penicillin, sulfa, and Keflex. HOME MEDICATIONS: Include the following. Xanax, furosemide, ipratropium, montelukast, Mirapex, and tizanidine. PHYSICAL EXAMINATION: Vital Signs: Temperature is 97.5 degrees, pulse 91, respirations 15, blood pressure 114/56. The patient is 5 feet 4 inches tall and weighs 210 pounds. General: This is an obese, elderly female. She is in no acute distress. Head, eyes, ears, nose, and throat: She can hear my spoken words and see near objects. I did not see any white coating on her tongue. Neck: No meningismus. Lungs: Clear to auscultation. Cardiovascular: Heart rate is irregular. Abdomen: Soft. It was not tender to light palpation. The laparoscopic incisions are not erythematous or purulent. Neurologic: The patient is somewhat lethargic. She is very weak. She does not have a tremor. Her memory as regarding her medical history is good. Integument: No rash noted. Thank you for the consult. cc: Dex Amos MD
--- NOTE | 2019-07-12 14:42 | GENERAL SURGERY PROGRESS NOTE ---
DATE: 07/12/2019 SUBJECTIVE: She seems more alert. Urine output remains marginal. OBJECTIVE: No fevers. Pulse 91 blood pressure 114/56. General: She is alert. Abdomen is soft. Incisions are intact. Awad is in place with some urine in the bag. LABORATORY DATA: Hematocrit 32, white count remains elevated at 22, creatinine is 3.8. ASSESSMENT AND PLAN: This is an 84-year-old female admitted with urinary tract infection and superior mesenteric vein, right portal vein thrombus after right colectomy. We will continue gentle hydration per Dr. Hernandez as well as avoiding any nephrotoxins. She is on a heparin protocol. She has been treated for a urinary tract infection. We will continue to follow her going forth. cc: Abby Gallardo MD
[2019-07-12] MEDS: HEPARIN 25,000 UNITS/D5W 25,000 UNIT/250 ML IV.SOLN IV SCH ×2 (19:11→23:50)
[2019-07-12] MEDS: MIRAPEX PO SCH (20:35)
[2019-07-12] MEDS: SINGULAIR PO SCH (20:35)
[2019-07-12] MEDS: NORCO-10 PO PRN (20:37)
[2019-07-13] MEDS: DUONEB (A & A) INH SCH ×6 (03:37→23:32)
[2019-07-13] MEDS: NS 1,000 ML IV SCH (04:28)
[2019-07-13 05:36] LABS: BASO# 0.01 X1000 (0.0-0.2); BASO% 0.1 % (0.0-0.8); HEMATOCRIT 31.1 % (37.0-47.0); HEMOGLOBIN 9.6 g/dL (12.0-16.0); IMM GRAN# 0.11 X1000 (0.0-0.04); IMM GRAN% 0.7 % (0.0-0.5); LYMPH% 3.6 % (20.5-51.1); MCH 25.6 PG (27-31); MCHC 30.9 g/dL (33-37); MCV 82.9 FL (81-99); MONO# 1.28 X1000 (0.11-0.59); MONO% 7.8 % (1.7-9.3); MPV 9.2 FL (7.4-10.4); NEUT# 14.47 X1000 (1.4-6.5); NEUT% 87.8 % (42.2-75.2); PLT 401 X1000 (130-400); RBC 3.75 XMIL (4.2-5.4); RDW 15.6 % (11.5-14.5); WBC 16.47 X1000 (4.8-10.8)
[2019-07-13 05:46] LABS: ALB/GLOB RATIO 0.9; ALBUMIN 2.7 g/dL (3.5-5.0); CALCIUM 7.6 mg/dL (8.8-10.2); CREATININE 3.8 mg/dL (0.5-0.9); MAGNESIUM 1.9 mg/dL (1.5-2.7); POTASSIUM 3.4 mmol/L (3.5-5.1); TOTAL BILIRUBIN 0.31 mg/dL (0.20-1.00); TOTAL PROTEIN 5.7 g/dL (6.3-8.3)
[2019-07-13] MEDS: PRILOSEC PO SCH (06:01)
--- NOTE | 2019-07-13 06:58 | INFECTIOUS DISEASE PROGRESS NO ---
DATE: 07/13/2019 PRESENT ILLNESS: The patient has Staph epidermidis urinary tract infection which is symptomatic. MEDICATIONS: The patient is on Levaquin. PHYSICAL EXAMINATION: Vital Signs: Temperature is 98.2 degrees, pulse 80, respirations 18, blood pressure 115/68. General: This is an obese, ill-appearing, elderly female. She is in no acute distress and she told me she actually feels better today than yesterday. HEENT: She can hear my spoken words and see near objects. She does not have any white patches on her tongue. Neck: No stiffness. Lungs: Clear to auscultation. Cardiovascular: Heart rate is irregular. Abdomen: Soft and nontender. Neurologic: The patient is awake. She can move her extremities. There is no tremor. Integument: No rash noted. LABS AND X-RAY: X-rays have been taken. The radiologist has not read it. I looked at and I thought that there may be a right lower lobe infiltrate present. The patient's CBC shows a white count of 16,470, hemoglobin is 9.6, and platelet count is 401,000. Creatinine is 3.8, GFR is 11. Liver function studies are normal. Urine culture grew Staph epidermidis. Blood cultures are negative. ASSESSMENT AND PLAN: Patient has symptomatic Staphylococcus epidermidis urinary tract infection. I plan to treat the patient with Levaquin for a total of 14 days. I have switched the patient from IV to p.o. Levaquin. I have discontinued the patient's Zanaflex while she is on Levaquin because the two can interact adversely. The patient should not have Zanaflex as long as she is on Levaquin. COMORBIDITIES: The Patient has chronic obstructive pulmonary disease, hypertension, obesity, obstructive sleep apnea, atrial fibrillation, and end-stage renal disease. cc: Dex Amos MD
--- NOTE | 2019-07-13 07:30 | Diag Imaging Result Doc PS360 ---
EXAM: CHEST-PORTABLE INDICATION: dyspnea TECHNIQUE: One view COMPARISON: 07/12/2019 FINDINGS: Inspiration is suboptimal. Pulmonary venous congestion is approximately stable. There is increasing opacity at the right lower lung zone suggesting developing atelectasis and/or infiltrate. The opacity at the left lung base is approximately stable. No other new consolidation is identified. Cardiac silhouette is stable. IMPRESSION: Increasing opacity at the right lung base suggesting developing atelectasis and/or infiltrate. Electronically signed by Jose Antonio Posada 07/13/2019 7:28 AM
[2019-07-13 08:30] LABS: FLOW CYTOMETERY SOURCE WHOLE BLOOD; LEUKEMIA LYMPHOMA BY FLOW REFERRED FOR TESTING
[2019-07-13] MEDS: VITAMIN D PO SCH (09:53)
[2019-07-13] MEDS: XANAX PO SCH (09:53)
[2019-07-13] MEDS: GLUCOSAMINE 500 MG/CHONDROITIN 400 MG PO SCH (09:53)
[2019-07-13] MEDS: LEVAQUIN PO SCH (09:59)
[2019-07-13] MEDS: ZYVOX 600 MG/D5W 600 MG/300 ML IVPB IV SCH (10:01)
[2019-07-13] MEDS: ZOFRAN IV PRN (12:13)
--- NOTE | 2019-07-13 12:23 | PROGRESS NOTE ---
DATE: 07/13/2019 SUBJECTIVE: This patient is lying in bed. Her abdomen seems to be less distended. She had a bowel movement today. She is complaining of shortness of breath. I have stopped the fluids momentarily. We have a positive balance of 6.7 L; she is overloaded. Regarding her kidney function, she seems to be making more urine. Her BUN increased a little bit compared with yesterday, but creatinine is about the same. I checked the urine back today and apparently she has been having a decent urine output, around 175 mL in 3 hours. OBJECTIVE: Vital Signs: Temperature 97.7 degrees, pulse 105, respiratory rate 16, blood pressure 120/73, oxygen saturation 92 on 3 L of nasal cannula. HEENT: Head normocephalic, no trauma. PERRLA. Neck: Supple. No JVD. No masses. Central trachea. Chest: Clear to auscultation. Crepitus at the bases. Decreased breath sounds mostly from the mid thoracic area to the base. Abdomen: Soft, protuberant, slightly distended. Decreased bowel sounds, but present. She does have multiple new scars from recent surgery, but no signs of infection on those wounds. She had a laparoscopic procedure done recently. Extremities: Her right lower extremity is bigger compared with the left lower extremity, 2+ edema. Neurological examination: The patient is awake, alert. She is following commands. She is answering my questions. LABORATORY: WBC 16.4, hemoglobin 9.6, hematocrit 31.1, platelets 401. Sodium 133, potassium 3.4, chloride 93, bicarbonate 23. BUN 42, creatinine 3.8, glucose 104, calcium 7.6, phosphorus 5, magnesium 1.9 and albumin 2.7. ASSESSMENT AND PLAN: 1. Thrombosis involving the superior mesenteric vein, as well as the right hepatic vein. Continue with anticoagulation with heparin drip. Hematology/Oncology following this patient. 2. Splenic vein aneurysm. Surgery on board. 3. Acute kidney injury. BUN increased a little bit compared with yesterday. Creatinine about the same. She seems to be making more urine today. We will monitor. Nephrology Department on board. 4. Status post right colectomy laparoscopically. She seems to be doing fine. She had a bowel movement today. We will follow this closely. Surgery Department on board. 5. Cholelithiasis. We will monitor. 6. Possible urinary tract infection. She has a positive culture that showed Staphylococcus epidermidis. Infectious Disease Department evaluated this patient, and they have recommended to continue with levofloxacin oral. She is also on Zyvox, which I will stop. 7. Chronic obstructive pulmonary disease. CT scan showed severe emphysema. She is not having acute exacerbation. 8. Atrial fibrillation. Continue with anticoagulation with heparin rate controlled. 9. Hypokalemia. She still is slightly hypokalemic, but I will not replace it due to her acute kidney injury. 10. Leukocytosis likely secondary to the infectious process and the inflammatory process as well. 11. Hypomagnesemia, resolved. 12. Obstructive sleep apnea. Continue to monitor. 13. Deep vein thrombosis prophylaxis. She is on heparin drip. 14. Gastrointestinal prophylaxis with proton pump inhibitors. cc: Abilio Franco MD
--- NOTE | 2019-07-13 15:07 | Diag Imaging Result Doc PS360 ---
EXAM: BONE SCAN, TOTAL BODY INDICATION: R/O malignancy TECHNIQUE: 26.8 mCi of technetium 99 MDP was administered intravenously and images of the whole body were obtained in usual fashion. COMPARISON: None. FINDINGS: There is focal increased uptake at the lateral aspect of the left knee that is very likely degenerative. Please correlate clinically and follow-up with the left knee radiograph if warranted. There is mild degenerative uptake at the base of the thumb on the right and the right midfoot. No other significant abnormal uptake is appreciated. There is normal soft tissue uptake and excretion of radiotracer by the system. IMPRESSION: 1.Focal increased uptake at the lateral compartment of the left knee that is very likely degenerative. 2.Very mild degenerative uptake associated with the right midfoot and base of the right thumb. Electronically signed by Jose Antonio Posada 07/13/2019 3:05 PM
--- NOTE | 2019-07-13 16:35 | PROVIDER PROGRESS NOTE ---
Progress Note Subjective: patient lying in bed resting. Arouse to verbal stimuli. Complains of shortness of breath on exertion. Denies any other urinate complaints. Objective: temp 98.2, pulse 80, respirations 18, blood pressure 115/68, 02 sat 91% on 4 L nasal cannula. General: Ill appearing elderly white female laying in bed in no acute distress. HEENT: Normocephalic, atraumatic. Pupils equal and reactive. Mucous membranes dry. Trach is midline. Skin: warm, dry, erythema noted to bilateral upper extremities. Neck: supple, no JVD. Cardiovascular: Irregular and tachycardic rate and rhythm. Crescendo-Decrescendo murmur heard best at the left sternal border grade 2/6. Respiratory: lungs clear bilaterally with diminished bases. Abdomen: obese, firm, distended, tender to the right upper quadrant. : non-inspected Extremities: 2+ pitting to BLE left >right and generalized edema to BUE. Neurological: alert and oriented to person, place, and time. Labs: WBC 16, hemoglobin 9.6, hematocrit 31.1, platelet count 401, sodium 133, potassium 3.4, carbon dioxide 23, BUN 42, creatinine 3.8. Intake 4220, output 146. Fractional excretion of sodium 0.36. Impression: Acute kidney injury, likely related to ct contrast. Creatinine is stabilizing. Urine output is picking up. Will continue to monitor. Nutrition. Tolerating clear liquids. Ambulation. Ambulating in room. Medication review.
[2019-07-13] MEDS: HEPARIN 25,000 UNITS/D5W 25,000 UNIT/250 ML IV.SOLN IV SCH (18:32)
--- NOTE | 2019-07-13 19:22 | HEMO/ONC CONSULTATION ---
DATE: 07/13/2019 ADMITTING PHYSICIAN: Dr. Sesay. REQUESTING PHYSICIAN: Dr. Sesay. We appreciate this consult. CHIEF COMPLAINT: Superior mesenteric and right hepatic vein thromboses. HISTORY OF PRESENT ILLNESS: Ms. Gisela Kaminski is a pleasant, 84-year-old female who carries a history of COPD, hypertension, morbid obesity, obstructive sleep apnea, and atrial fibrillation. The patient recently underwent laparoscopic right colectomy by Dr. Gallardo secondary to a large polyp that was not able to be resected during colonoscopy. The patient presented to [facility] Emergency Department with complaints of abdominal pain that had been worsening over the period of 24 hours in the left side of her abdomen. The patient denied nausea, vomiting, diarrhea, or constipation. CT of the abdomen and pelvis revealed evidence of thrombosis involving the superior mesenteric vein as well as the right hepatic vein. Additionally, the patient was noted to have a splenic artery aneurysm and cholelithiasis. Urinalysis was positive for a urinary tract infection. The patient was admitted secondary to superior mesenteric and hepatic vein thromboses. We are consulted to rule out malignancy. Past MEDICAL HISTORY: As in HPI. PAST SURGICAL HISTORY: 1. Appendectomy. 2. C-spine surgery. 3. Carpal tunnel release. 4. Right wrist surgery. 5. Right ear surgery. 6. Cataract extraction. 7. Partial colectomy. 8. Ovarian cystectomy. SOCIAL HISTORY: The patient does not use tobacco, alcohol, or illicit drugs. FAMILY HISTORY: Negative for any hematologic or oncologic disease. MEDICATIONS ON ADMISSION: 1. Osteo Bi-Flex. 2. Xanax. 3. Mirapex. 4. Acetaminophen. 5. Vitamin D. 6. Diltiazem. 7. Furosemide. 8. Ipratropium/albuterol. 9. Metoprolol. 10. Montelukast sodium. 11. Tizanidine. 12. Trazodone. 13. Colace. 14. Tramadol. ALLERGIES: The patient is allergic to penicillin and sulfa. REVIEW OF SYSTEMS: Complete review of systems is negative except for mentioned in HPI. PHYSICAL EXAMINATION: General: Ms. Kaminski is an 84-year-old female lying supine in bed, in no immediate distress. General: Temp 98.1, blood pressure 132/66, heart rate 81, respirations 15, O2 saturation 93% on 2 L nasal cannula O2. HEENT: Normocephalic, atraumatic. Mucous membranes are pink and moist. Sclerae is anicteric. Extraocular movements intact. Neck: Supple. Lungs: Clear to auscultation bilaterally. Chest expansion is equal bilaterally. CV: S1, S2 is heard without murmur, rub, or gallop. Abdomen: Soft. Tender to palpation throughout with no rebound or guarding noted. Bowel sounds are decreased throughout. The patient does have well-healing incisions status post partial colectomy. Extremities: Without clubbing or cyanosis. The patient does have 1+ bilateral lower extremity edema. Dermatologic: No rashes, bruises, or lesions. Neurologic: The patient is somnolent but oriented x3. She has no focal motor deficit. LABORATORY DATA: Hemoglobin is 13.6, hematocrit 43.8, white blood cell count is 22.29, platelets 427,000. Sodium 142, potassium 3.7, chloride 96, CO2 is 21, BUN 18, creatinine 1.4, and glucose is 84. IMAGING STUDIES: CT of the abdomen and pelvis reveals a superior mesenteric vein and right hepatic vein thrombosis as well as cholelithiasis, splenic artery aneurysm, prominent atherosclerosis, and a small amount of ascites. ASSESSMENT AND PLAN: 1. 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 We will check a CT of the chest, mammogram, and bone scan in an effort to rule out malignancy. We will follow along. 2. Splenic vein aneurysm. Surgery is currently following. 3. Cholelithiasis. Surgery is currently following. 4. Status post right colectomy, well healed. Surgery is following. 5. Urinary tract infection. Currently on antibiotics. 6. Chronic obstructive pulmonary disease without exacerbation at this time. 7. Atrial fibrillation, rate controlled. 8. We will follow along with you and make further recommendations pending outcomes. The above reflects the history, exam, assessment, and plan of Dr. Beltrán. Dictated by BRITTANIE Sandra for Tulio Beltrán MD cc: BRITTANIE Sandra MD [facility]
[2019-07-13] MEDS: MIRAPEX PO SCH (20:49)
[2019-07-13] MEDS: SINGULAIR PO SCH (20:49)
--- NOTE | 2019-07-13 21:25 | GENERAL SURGERY PROGRESS NOTE ---
DATE: 07/13/2019 SUBJECTIVE: She is more alert. She is sitting in a chair. She is visiting the distribution engineer. No fevers. She denies any abdominal pain. She is tolerating some clear liquids. Her blood pressure been okay. Heart rate fluctuated occasionally in the low 100s. She is on 2 L nasal cannula. Her abdomen is soft, nontender. Integument is warm, dry. White count down to 16, hematocrit 31, creatinine is stable at 3.8 from yesterday. ASSESSMENT AND PLAN: This is a 84-year-old female admitted with a urinary tract infection. She had superior mesenteric vein and right portal vein thrombus and she developed acute kidney injury. This seems to have plateaued may even be improving. Her urine output seems to be increasing as well. She is having bowel function. I do not suspect any bowel ischemia. Plan on soft diet tomorrow. cc: Abby Gallardo MD
[2019-07-14] MEDS: DUONEB (A & A) INH SCH ×6 (03:32→23:02)
[2019-07-14 05:30] LABS: BASO# 0.02 X1000 (0.0-0.2); BASO% 0.2 % (0.0-0.8); EOS# 0.04 X1000 (0.0-0.7); EOS% 0.4 % (0.0-10.0); HEMATOCRIT 31.6 % (37.0-47.0); HEMOGLOBIN 9.8 g/dL (12.0-16.0); IMM GRAN# 0.09 X1000 (0.0-0.04); IMM GRAN% 0.9 % (0.0-0.5); LYMPH% 6.2 % (20.5-51.1); MCH 25.5 PG (27-31); MCV 82.3 FL (81-99); MONO# 0.99 X1000 (0.11-0.59); MONO% 10.2 % (1.7-9.3); MPV 9.3 FL (7.4-10.4); NEUT# 7.99 X1000 (1.4-6.5); NEUT% 82.1 % (42.2-75.2); PLT 365 X1000 (130-400); RBC 3.84 XMIL (4.2-5.4); RDW 15.6 % (11.5-14.5); WBC 9.73 X1000 (4.8-10.8)
[2019-07-14 06:04] LABS: CALCIUM 8.1 mg/dL (8.8-10.2); CREATININE 3.1 mg/dL (0.5-0.9); MAGNESIUM 1.9 mg/dL (1.5-2.7); PHOSPHORUS 4.1 mg/dL (2.7-4.5); POTASSIUM 3.5 mmol/L (3.5-5.1); TOTAL BILIRUBIN 0.3 mg/dL (0.20-1.00); TOTAL PROTEIN 5.9 g/dL (6.3-8.3)
[2019-07-14] MEDS: PRILOSEC PO SCH (06:29)
--- NOTE | 2019-07-14 07:47 | Diag Imaging Result Doc PS360 ---
CHEST-PORTABLE - 07/14/2019 INDICATION: dyspnea COMPARISON: 07/13/2019 FINDINGS: Stable cardiomegaly and severe pulmonary vascular congestion. Stable ill-defined infiltrates in both lung bases. There are probably trace pleural effusions. There may be pulmonary edema. IMPRESSION: No change from prior. Electronically signed by Facundo Wheeler 07/14/2019 7:45 AM
[2019-07-14] MEDS: VITAMIN D PO SCH (09:40)
[2019-07-14] MEDS: GLUCOSAMINE 500 MG/CHONDROITIN 400 MG PO SCH (09:40)
[2019-07-14] MEDS: XANAX PO SCH (09:40)
[2019-07-14] MEDS: LEVAQUIN PO SCH (09:40)
[2019-07-14] MEDS ORDERED: HEPARIN IV PRN (09:53)
[2019-07-14] MEDS ORDERED: HEPARIN IV ONE ×2 (09:53→18:28)
[2019-07-14] MEDS ORDERED: HEPARIN 25,000 UNITS/D5W 25,000 UNIT/250 ML IV.SOLN IV SCH ×2 (10:00→10:02)
[2019-07-14 10:42] LABS: INR 1.07; PROTIME 14.1 Seconds (11.0-16.0)
--- NOTE | 2019-07-14 14:11 | INFECTIOUS DISEASE PROGRESS NO ---
DATE: 07/14/2019 PRESENT ILLNESS: The patient has a symptomatic Staph epidermidis urinary tract infection. The patient has pulmonary edema but the radiologist said there could possibly be an underlying pneumonia as well. MEDICATIONS: The patient is on Levaquin 250 mg p.o. daily. The patient has had 5 doses of Levaquin. PHYSICAL EXAMINATION: Vital Signs: Temperature is 98 degrees, pulse 99, respirations 18, blood pressure 116/61. General: This is an obese, elderly female. She tells me she is feeling better today. Head/eyes/ears/nose/throat: She can hear my spoken words and see near objects. I did not notice any white patches in her mouth. Neck: No pain with movement of it. Lungs: There were some bibasilar rales. Cardiovascular: Heart rate is irregular. Abdomen: Soft and nontender. Neurologic: The patient is awake. She can move her extremities. She does not have a tremor. LAB AND X-RAY: CBC shows a white count of 9730, hemoglobin 9.8, platelet count 365,000. Creatinine is 3.1. GFR is 14. The patient's last chest x-ray showed pulmonary edema with the possibility of underlying pneumonia. ASSESSMENT AND PLAN: The patient has symptomatic urinary tract infection and the infection could be contributing to the patient's acute renal failure. Also, the patient may have an underlying pneumonia as mentioned above. My plan is to continue p.o. Levaquin at the dose of 250 mg daily because of the patient's renal failure. I have also ordered a procalcitonin level to see if the patient does indeed have a bacterial pneumonia underneath the pulmonary edema. If the patient does have pneumonia, Levaquin would be good coverage for that. COMORBIDITIES: The patient is elderly. She does have chronic obstructive pulmonary disease and obstructive sleep apnea. She also is obese. cc: Dex Amos MD
[2019-07-14] MEDS: HEPARIN 25,000 UNITS/D5W 25,000 UNIT/250 ML IV.SOLN IV SCH (18:38)
--- NOTE | 2019-07-14 18:40 | PROVIDER PROGRESS NOTE ---
Progress Note Subjective: Pt resting in bed in some respiratory distress. Voices shortness of breath. Denies any other complaints. Objective: temp 98.0, pulse 99, respirations 18, blood pressure 116/61, O2 sat 100% on 2 L nasal cannula. General: Ill appearing elderly white female laying in bed in some acute distress. HEENT: Normocephalic, atraumatic. Pupils equal and reactive. Mucous membranes dry. Trachea is midline. Skin: warm, dry, erythema noted to bilateral upper extremities. Neck: supple, positive JVD. Cardiovascular: Irregular and tachycardic rate and rhythm. Crescendo-Decrescendo murmur heard best at the left sternal border grade 2/6. Respiratory: lungs clear bilaterally with diminished bases. Abdomen: obese, firm, distended, tender to the right upper quadrant. : non-inspected Extremities: 2+ pitting to BLE left >right and generalized edema to BUE. Neurological: alert and oriented to person, place, and time. Labs: WBC 9.73, hemoglobin 9.8, hematocrit 31.6, sodium 136, potassium 3.5, chloride 96, carbon dioxide total three, BUN 43, creatinine 3.1. Intake 580/ output 250. Impression: Acute kidney injury, ATN likely related to ct contrast. Creatinine is trending down. Urine output is picking up. Will continue to monitor. Nutrition. Tolerating clear liquids. Ambulation. Ambulating in room. Medication review.
--- NOTE | 2019-07-14 19:59 | PROGRESS NOTE ---
DATE: 07/14/2019 SUBJECTIVE: The patient reports feeling fine. Reports coughing a little bit more in comparing with yesterday but no chest pain, no shortness of breath. OBJECTIVE: Vitals: Temperature 97.5, heart rate 117, respiratory rate 20, blood pressure 134/73, O2 saturation 94% on 3 L nasal cannula oxygen. General: This is an 84-year-old female lying in bed in no acute distress. Cardiovascular Exam: S1, S2 heard. No murmurs, gallops, or rubs. Regular rate and rhythm. Respiratory: Crackles noted in both pulmonary bases. Patient not using any accessory muscles or having work of breathing. Abdomen: Soft, a little distended but nontender to palpation. Bowel sounds present but decreased. She has multiple new scars from recent surgery but no signs of infection in those wounds. Extremities: Right lower extremity bigger in comparing with the left with 2+ pitting edema. Neurological: Patient is alert and oriented x3. Moves 4 extremities. LABORATORY DATA: White cell count 9.73, hemoglobin 9.8, hematocrit 31.6, platelets 365,000. Sodium 136, creatinine 3.1. ASSESSMENT AND PLAN: 1. 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 The patient continues to be on heparin drip. General surgery following this patient. I think that she is doing okay. They do not think that this patient has developed any bowel ischemia so soft diet will be started today. 2. Urinary tract infection. Patient is going to be placed on Levaquin 250 mg p.o. daily considering her renal function. Infectious Disease is following this patient. 3. Chronic obstructive pulmonary disease. Patient is not on any exacerbation. We will provide breathing treatments as needed only. 4. Atrial fibrillation. Rate is well controlled. We will continue with anticoagulation, in this case heparin drip. 5. Hypokalemia, resolved. 6. Leukocytosis likely related to the infectious process, and that condition is completely resolved. 7. Obstructive sleep apnea. We will continue to monitor. DISPOSITION: As we mentioned before, this patient is getting better. Patient will be started on soft diet tomorrow. cc: Tony Espinoza MD
[2019-07-14] MEDS: MIRAPEX PO SCH (21:40)
[2019-07-14] MEDS: SINGULAIR PO SCH (21:40)
--- NOTE | 2019-07-14 21:50 | GENERAL SURGERY PROGRESS NOTE ---
DATE: 07/14/2019 SUBJECTIVE: She feels better. She is more alert. Denies any abdominal pain. She is passing gas. She is eating some, but not much appetite. No fevers. Intermittent low-grade tachycardia, atrial fibrillation. OBJECTIVE: Blood pressure 134/73, oxygen saturation 94% on 3 L. General: She is alert. Abdomen: Soft, nontender. LABORATORY DATA: White count is now normal at 9, hematocrit is 31. Creatinine is 3.1, is down trending. 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 We will continue heparin. With her improving renal function, I think in the near future, we could switch her to Lovenox and even an oral anticoagulant. Her infectious count has normalized, and I do not suspect ischemia based on her exam. We will continue to follow along. cc: Abby Gallardo MD
[2019-07-15] MEDS: DUONEB (A & A) INH SCH ×6 (03:45→23:09)
[2019-07-15 05:33] LABS: BASO# 0.04 X1000 (0.0-0.2); BASO% 0.4 % (0.0-0.8); EOS# 0.16 X1000 (0.0-0.7); EOS% 1.6 % (0.0-10.0); HEMATOCRIT 34.2 % (37.0-47.0); HEMOGLOBIN 10.7 g/dL (12.0-16.0); IMM GRAN# 0.17 X1000 (0.0-0.04); IMM GRAN% 1.7 % (0.0-0.5); LYMPH# 0.61 X1000 (1.2-3.4); LYMPH% 6.1 % (20.5-51.1); MCH 25.9 PG (27-31); MCHC 31.3 g/dL (33-37); MCV 82.8 FL (81-99); MPV 8.7 FL (7.4-10.4); NEUT# 7.79 X1000 (1.4-6.5); NEUT% 78.2 % (42.2-75.2); PLT 280 X1000 (130-400); RBC 4.13 XMIL (4.2-5.4); RDW 15.5 % (11.5-14.5); WBC 9.97 X1000 (4.8-10.8)
[2019-07-15 05:58] LABS: ALBUMIN 2.7 g/dL (3.5-5.0); CALCIUM 8.4 mg/dL (8.8-10.2); CREATININE 2.4 mg/dL (0.5-0.9); PHOSPHORUS 3.8 mg/dL (2.7-4.5); POTASSIUM 3.4 mmol/L (3.5-5.1)
[2019-07-15] MEDS: PRILOSEC PO SCH (06:22)
[2019-07-15] MEDS: NORCO-10 PO PRN (06:41)
--- NOTE | 2019-07-15 10:17 | PROVIDER PROGRESS NOTE ---
Progress Note Subjective: Pt resting in bed. Voices shortness of breath. Denies any other complaints. Objective: temp 97.6, pulse 100, respirations 18, blood pressure 149/66, 02 sat 94% on 3 L nasal cannula. General: Ill appearing elderly white female laying in bed in some acute distress. HEENT: Normocephalic, atraumatic. Pupils equal and reactive. Mucous membranes dry. Trachea is midline. Skin: warm, dry, erythema noted to bilateral upper extremities. Neck: supple, positive JVD with HJR Cardiovascular: Irregular and tachycardic rate and rhythm. Crescendo-Decrescendo murmur heard best at the left sternal border grade 2/6. Respiratory: lungs clear bilaterally with diminished bases. Abdomen: obese, firm, distended, tender to the right upper quadrant. : non-inspected Extremities: 2+ to 3+ pitting to BLE and generalized edema to BUE. Neurological: alert and oriented to person, place, and time. Labs: WBC 9.97, hemoglobin 10.7, hematocrit 34.2, platelet count 280, sodium 136, potassium 3.4, chloride 97, carbon dioxide 23, BUN 40, creatinine 2.4. Intake 279, output 1400. Impression: Acute kidney injury, likely related to ct contrast. Creatinine improved. No changes. Fluid volume overload. Lasix ordered. Nutrition. Encouraged to eat. Ambulation. PT/OT ordered Medication review.
[2019-07-15] MEDS: HEPARIN 25,000 UNITS/D5W 25,000 UNIT/250 ML IV.SOLN IV SCH (11:22)
[2019-07-15] MEDS: VITAMIN D PO SCH (11:24)
[2019-07-15] MEDS: GLUCOSAMINE 500 MG/CHONDROITIN 400 MG PO SCH (11:24)
[2019-07-15] MEDS: LEVAQUIN PO SCH (11:24)
[2019-07-15] MEDS: XANAX PO SCH (11:24)
[2019-07-15] MEDS: LASIX IV SCH (11:25)
--- NOTE | 2019-07-15 14:11 | GENERAL SURGERY PROGRESS NOTE ---
DATE: 07/15/2019 SUBJECTIVE: She is doing well. She wants to go home. Bowels are working. She is not having much in the way of pain. OBJECTIVE: Urine output is improving. Creatinine is down to 2.4. White count is normal at 9. 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 She seems to be doing well on a heparin drip. Her acute kidney injury is resolving. We will advance her diet to soft today. Otherwise, I think it would be reasonable to start switching her to a more long-term anticoagulant, Lovenox or even oral anticoagulant. I do think she has gotten quite weak and will need rehab. We will continue to follow along. cc: Abby Gallardo MD
--- NOTE | 2019-07-15 20:33 | PROGRESS NOTE ---
DATE: 07/15/2019 SUBJECTIVE: Patient reports feeling fine. Denies any shortness of breath. She reports less cough. She continues to require 2 L of oxygen by nasal cannula. PHYSICAL EXAMINATION: Vital signs: Temperature is 98.2 degrees, heart rate 85, respiratory rate 17, blood pressure 117/60, O2 saturation 91% 2 L nasal cannula. General: This is a morbidly obese, 84-year-old female lying in bed, in no acute distress. Cardiovascular: S1, S2 heard. No murmurs, gallops, or rubs. Regular rate and rhythm. Respiratory: Crackles still noted in both pulmonary bases. Patient not using any accessory muscles or having work of breathing. Abdomen: Soft, a little bit distended, but nontender to palpation. Bowel sounds present. No organomegaly. The patient has multiple new scars from recent surgery, but no signs of infection in those wounds. Extremities: 2+ pitting edema in both lower extremities, worse in the right when compared with the left. Neurological: Patient is alert and oriented x3. Speaks slowly. Moves 4 extremities spontaneously. LABORATORY DATA: White cell count is 9.97, hemoglobin 10.7, hematocrit 34.2, platelets 280,000, with a BMP that indicates creatinine of 2.4 and potassium 3.4. ASSESSMENT AND PLAN: 1. 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 The patient continues to be on heparin drip. As per General Surgery, we can switch to Lovenox on oral anticoagulation. I think for tomorrow, we will probably do Eliquis. They do not think that this patient has developed any bowel ischemia, so the diet has been started today and she did tolerate it apparently very well. We will continue the same management. 2. Urinary tract infection. We will continue with Levaquin [address] Amos from Infectious Disease is following this patient. 3. Chronic obstructive pulmonary disease. Patient is not in exacerbation. We will provide breathing treatments as needed only. 4. Atrial fibrillation. Rate well controlled. We will continue with heparin drip and will switch to Eliquis tomorrow. 5. Hypokalemia, resolved. 6. Obstructive sleep apnea. We will continue using CPAP here in the hospital. 7. Disposition. I think we will try to switch anticoagulation to oral medication. Son, who is at bedside, expressed his concern of this patient going home, so I think rehabilitation is a good option for her. Physical Therapy and Occupational Therapy have been consulted. Also, will consult pediatric social worker for rehab placement. cc: Tony Espinoza MD
[2019-07-15] MEDS: ZOFRAN IV PRN (21:57)
[2019-07-15] MEDS: SINGULAIR PO SCH (21:57)
[2019-07-15] MEDS: MIRAPEX PO SCH (21:57)
[2019-07-16] MEDS: ZOFRAN IV PRN (02:46)
[2019-07-16] MEDS: HEPARIN 25,000 UNITS/D5W 25,000 UNIT/250 ML IV.SOLN IV SCH (02:47)
[2019-07-16] MEDS: NORCO-10 PO PRN (03:00)
[2019-07-16] MEDS: DUONEB (A & A) INH SCH ×6 (03:25→23:10)
[2019-07-16 05:05] LABS: BASO# 0.06 X1000 (0.0-0.2); BASO% 0.5 % (0.0-0.8); EOS# 0.38 X1000 (0.0-0.7); EOS% 3.1 % (0.0-10.0); HEMATOCRIT 34.8 % (37.0-47.0); IMM GRAN# 0.29 X1000 (0.0-0.04); IMM GRAN% 2.4 % (0.0-0.5); LYMPH# 0.89 X1000 (1.2-3.4); LYMPH% 7.3 % (20.5-51.1); MCH 25.8 PG (27-31); MCHC 31.6 g/dL (33-37); MCV 81.5 FL (81-99); MONO# 1.34 X1000 (0.11-0.59); MPV 8.7 FL (7.4-10.4); NEUT# 9.22 X1000 (1.4-6.5); NEUT% 75.7 % (42.2-75.2); PLT 304 X1000 (130-400); RBC 4.27 XMIL (4.2-5.4); RDW 15.6 % (11.5-14.5); WBC 12.18 X1000 (4.8-10.8)
[2019-07-16 05:42] LABS: ALBUMIN 2.6 g/dL (3.5-5.0); CALCIUM 8.6 mg/dL (8.8-10.2); CREATININE 1.9 mg/dL (0.5-0.9); PHOSPHORUS 4.3 mg/dL (2.7-4.5); POTASSIUM 3.6 mmol/L (3.5-5.1)
[2019-07-16] MEDS: PRILOSEC PO SCH (06:06)
--- NOTE | 2019-07-16 07:14 | INFECTIOUS DISEASE PROGRESS NO ---
DATE: 07/15/2019 PRESENT ILLNESS: Ms. Kaminski is being treated for a symptomatic Staph epi urinary tract infection. There is also pneumonia as well. She has an elevated procalcitonin level of 1.3, which signifies a respiratory tract infection is very likely. MEDICATIONS: Today is day 2 of treatment with Levaquin 250 mg by mouth daily. PHYSICAL EXAMINATION: Vital Signs: Temperature is 98.2 degrees, pulse rate 85, respiratory rate 17, blood pressure 117/60, O2 saturation is 91% on 3 L nasal cannula. General: This is a chronically ill-appearing, elderly female. She is sitting up in the chair, currently in no acute distress. HEENT: Atraumatic, normocephalic. Oral mucous membranes are pink and moist. Conjunctivae are pale. Neck: Supple. Trachea is midline. Cardiovascular: Irregularly irregular. Atrial fibrillation on the monitor. Respiratory: Lung sounds are clear in the upper lobes. Diminished with scattered, mild rales in the mid and bases. Abdomen: Soft, obese, and nontender. Bowel sounds are active. Integumentary: Skin is warm and dry, with pitting edema noted pretibially. Neurologic: She is awake, alert, appropriate, oriented. Able to move around the room with assistance. IMAGING AND LABORATORY DATA: Today, her white count is 9.97, hemoglobin 10.7, platelet count 280,000. Creatinine is 2.4. GFR is 19. Procalcitonin is 1.3. Her urine culture previously grow Staphylococcus epidermidis. No imaging reports today. ASSESSMENT AND PLAN: Ms. Kaminski is being treated for a urinary tract infection and pneumonia. She is afebrile, and her white blood cell count is normal. For now, we will continue the Levaquin as a renally modified dose. These plans have been discussed with and recommended by Dr. Amos. COMORBIDITIES: for Ms. Kaminski include that she is elderly and obese, with chronic obstructive pulmonary disease, obstructive sleep apnea, and atrial fibrillation. Dictated by BRITTANIE Horan for Dex Amos MD cc: Dex Amos MD [facility]
[2019-07-16] MEDS: XANAX PO SCH (09:09)
[2019-07-16] MEDS: GLUCOSAMINE 500 MG/CHONDROITIN 400 MG PO SCH (09:09)
[2019-07-16] MEDS: VITAMIN D PO SCH (09:09)
[2019-07-16] MEDS: LASIX IV SCH (09:09)
[2019-07-16] MEDS: LEVAQUIN PO SCH (09:09)
--- NOTE | 2019-07-16 14:12 | INFECTIOUS DISEASE PROGRESS NO ---
DATE: 07/16/2019 PRESENT ILLNESS: The patient has a Staph epidermidis urinary tract infection and possible pneumonia as well. MEDICATIONS: This is day 6 of treatment with Levaquin, the dose of which has been modified because of the patient's renal failure. PHYSICAL EXAMINATION: Vital Signs: Temperature is 97.8 degrees, pulse 97, respirations 20, blood pressure 115/60. General: This is an obese, elderly female. She told me today that she does not feel any better than yesterday. HEENT: She can hear my spoken words and see near objects. I did not notice any white patches in her mouth. Neck: No pain with movement. Lungs: Clear. Cardiovascular: Heart rate is irregular. Abdomen: Soft. It was not tender. It is protuberant. The incisions are healing well. Neurologic: The patient is awake. She can move her extremities. There is no tremor. IMAGING AND LABORATORY DATA: The patient's chest x-ray shows bibasilar infiltrates and pulmonary venous congestion. CBC shows a white count of 12,180, hemoglobin 11, and platelet count 304,000. Creatinine is 1.9. GFR is 25. Procalcitonin is 1.3, which translates into that it is very likely that the patient does have pneumonia. Urine culture grew Staph epidermidis. ASSESSMENT AND PLAN: The patient has urinary tract infection and pneumonia. I plan on continuing Levaquin at a reduced dose. Her white count did increase a little bit today. I am going to go ahead tomorrow and get a CBC, BMP, and portable chest x-ray. COMORBIDITIES: The patient is elderly. She has chronic obstructive pulmonary disease, obstructive sleep apnea, and obesity. cc: Dex Amos MD
--- NOTE | 2019-07-16 15:10 | PROVIDER PROGRESS NOTE ---
Progress Note Subjective: pt up to bedside commode. Voices having nausea and vomiting brown colored bile all through the night with no relief despite medications. Objective: temp 97.8, pulse 97, respirations 20, but pressure 115/60, 02 sat 99% on 4 L nasal cannula. General: Ill appearing elderly white female laying in bed in some acute distress. HEENT: Normocephalic, atraumatic. Pupils equal and reactive. Mucous membranes dry. Trachea is midline. Skin: warm, dry, erythema noted to bilateral upper extremities. Neck: supple, JVD observed in upright position. Cardiovascular: Irregular rate and rhythm. Crescendo-Decrescendo murmur heard best at the left sternal border grade 2/6. Respiratory: lungs clear bilaterally with diminished bases. Accessory muscle use noted. Abdomen: obese, less firm, less distended, remains tender to the right upper quadrant. : non-inspected Extremities: 2+ to 3+ pitting to BLE and generalized edema to BUE. Neurological: alert and oriented to person, place, and time. Labs: intake 160, output 1225. WBC 12.18, hemoglobin 11, Hematocrit 34.8, platelet count 304, sodium 135, potassium 3.6, chloride 95, carbon dioxide 24, BUN 37, creatinine 1.9. Impression: Acute kidney injury, likely related to ct contrast. Creatinine improved. No changes. Fluid volume overload. Lasix ordered. Nausea and vomiting. Defer to primary. Nutrition. Soft diet ordered, but patient not eating. Ambulation. PT/OT ordered Medication review.
--- NOTE | 2019-07-16 15:25 | Diag Imaging Result Doc PS360 ---
CT HEAD W/O CONTRAST - 07/16/2019 INDICATION: encephalopathy COMPARISON: None FINDINGS: The ventricles and sulci are normal in size and contour. There is mild cerebral white matter hypodensity compatible with chronic microvascular ischemia. There is a lacunar in the right basal ganglia. No intracranial mass or hemorrhage. The skull is intact. There is been mastoidectomy on the right side. The paranasal sinuses are all clear. IMPRESSION: No acute process. This exam was performed using automated exposure control, adjustment of mA or kV according to patient size, and/or use of iterative reconstruction technique Electronically signed by Facundo Wheeler 07/16/2019 3:23 PM
[2019-07-16 16:10] LABS: URINE SOURCE CATH
[2019-07-16 16:18] LABS: BILIRUBIN URINE NEGATIVE (NEGATIVE); BLOOD URINE LARGE (NEGATIVE); COLOR ORANGE; GLUCOSE URINE NEGATIVE (NEGATIVE); KETONE URINE NEGATIVE (NEGATIVE); LEUKOCYTES URINE LARGE (NEGATIVE); NITRITE URINE NEGATIVE (NEGATIVE); PROTEIN URINE 70 mg/dL (NEGATIVE); SP GRAVITY URINE 1.015; TURBIDITY URINE TURBID (CLEAR); UROBILINOGEN URINE NORMAL (NORMAL)
[2019-07-16 16:20] LABS: UR EPITHELIAL CELLS <10 /HPF (<10); URINE BACTERIA NEGATIVE /HPF; URINE RBC TNTC /HPF (<10); URINE WBC TNTC /HPF (<10)
[2019-07-16 16:32] LABS: URINE CASTS NONE SEEN; URINE CRYSTALS NONE SEEN; URINE YEAST PRESENT
--- NOTE | 2019-07-16 16:58 | PROGRESS NOTE ---
DATE: 07/16/2019 SUBJECTIVE: The patient is more lethargic today. According to nursing staff, she was more sleepy. She answered basic questions. She reports still having cough. OBJECTIVE: Vital Signs: Temperature 98.2 degrees, heart rate 116, respiratory rate 19, blood pressure 104/60, and O2 saturation 97% on 2 L nasal cannula. General Examination: This is a chronically ill-appearing 84-year-old female lying in bed, in no acute distress. Cardiovascular: S1, S2 heard. No murmurs, gallops, or rubs. Regular rate and rhythm. Respiratory: Coarse breath sounds noted in both pulmonary bases. Patient not using any accessory muscles or having work of breathing. Abdomen: Soft, nontender to palpation. Bowel sounds present. No organomegaly. Extremities: No clubbing, cyanosis, or edema. Peripheral pulses present in both legs. Neurological: The patient is more lethargic today but answers to verbal stimuli. Moves 4 extremities spontaneously. LABORATORY DATA: White cell count is 12.18, hemoglobin is 11, hematocrit 34.8, platelets 304,000, with a PTT greater than 215, creatinine 1.8. ASSESSMENT AND PLAN: 1. Thrombosis involving the superior mesenteric vein and right hepatic vein. The patient has been on heparin drip but because of prolonged PT, I decided to stop it and start Eliquis today. General Surgery is also following this patient. They do not think this patient has developed any bowel ischemia. She is tolerating diet. We will continue with the same management. 2. Urinary tract infection. We will continue Levaquin 250 mg 1 tablet p.o. daily. 3. Community-acquired pneumonia. We will continue with antibiotics as above. 4. Chronic obstructive pulmonary disease. The patient is not on any exacerbation. We will continue with breathing treatments and antibiotics as we mentioned before. 5. Atrial fibrillation. Rate is well controlled. We will continue with Eliquis. 6. Altered mental status. The patient has been on heparin drip, and considering her change in mental status, we will do a CT head today. 7. Obstructive sleep the obstructive sleep apnea. We will continue using CPAP here in the hospital. 8. Disposition. At this point, we will continue with current medications. Considering her change in mental status, we are going to do a CT of the head and we will go from there. cc: Tony Espinoza MD
[2019-07-16] MEDS: SINGULAIR PO SCH (20:54)
[2019-07-16] MEDS: MIRAPEX PO SCH (20:54)
[2019-07-16] MEDS: ELIQUIS PO SCH (20:57)
[2019-07-16 21:16] LABS: INR 1.05; PROTIME 13.8 Seconds (11.0-16.0)
--- NOTE | 2019-07-17 02:44 | GENERAL SURGERY PROGRESS NOTE ---
DATE: 07/16/2019 SUBJECTIVE: Clinically doing about the same. OBJECTIVE: Vital Signs: Heart rate for the most has part has been in the 50s to 90s, occasionally dipping in the low 100s without fevers, blood pressure 104/60. General: She is arousable, alert. She is a little more drowsy. The family says she has been a little confused. LABORATORY DATA: White count is overall about the same, it is 12, hematocrit is 34 creatinine is down to 1.9, glucose is 121. ASSESSMENT AND PLAN: The hospitalists have ordered a noncontrasted scan of her head, I think this is reasonable although I suspect delirium is the cause of her changes in mental status. We will follow along, continue nutritional support, physical therapy. She is quite debilitated. Eventually we can switch her off the heparin drip to either Lovenox or oral anticoagulant, but it would probably be reasonable to wait until she has got more normal renal function. cc: Abby Gallardo MD MTDD
[2019-07-17] MEDS: DUONEB (A & A) INH SCH ×4 (03:34→15:32)
[2019-07-17] MEDS: PRILOSEC PO SCH (06:19)
--- NOTE | 2019-07-17 06:43 | Diag Imaging Result Doc PS360 ---
CHEST-1 VIEW - 07/17/2019 INDICATION: pneumonia COMPARISON: 07/14/2019 FINDINGS: Stable cardiomegaly and pulmonary vascular congestion. There is improvement in the ill-defined infiltrates/edema in the lung bases. No large pleural effusion. IMPRESSION: Improvement in the ill-defined nonspecific infiltrates in the lung bases. Electronically signed by Facundo Wheeler 07/17/2019 6:41 AM
[2019-07-17 08:02] LABS: BASO# 0.07 X1000 (0.0-0.2); BASO% 0.5 % (0.0-0.8); EOS# 0.27 X1000 (0.0-0.7); EOS% 2.1 % (0.0-10.0); IMM GRAN# 0.34 X1000 (0.0-0.04); IMM GRAN% 2.7 % (0.0-0.5); LYMPH# 0.82 X1000 (1.2-3.4); LYMPH% 6.4 % (20.5-51.1); MCH 25.9 PG (27-31); MCHC 31.4 g/dL (33-37); MCV 82.4 FL (81-99); MONO# 1.44 X1000 (0.11-0.59); MONO% 11.3 % (1.7-9.3); MPV 8.6 FL (7.4-10.4); PLT 267 X1000 (130-400); RBC 4.25 XMIL (4.2-5.4); RDW 15.4 % (11.5-14.5); WBC 12.74 X1000 (4.8-10.8)
[2019-07-17 08:19] LABS: ALBUMIN 2.4 g/dL (3.5-5.0); CALCIUM 8.9 mg/dL (8.8-10.2); CREATININE 1.8 mg/dL (0.5-0.9); PHOSPHORUS 4.7 mg/dL (2.7-4.5); POTASSIUM 3.8 mmol/L (3.5-5.1)
[2019-07-17] MEDS: VITAMIN D PO SCH (09:35)
[2019-07-17] MEDS: GLUCOSAMINE 500 MG/CHONDROITIN 400 MG PO SCH (09:36)
[2019-07-17] MEDS: LASIX IV SCH (09:36)
[2019-07-17] MEDS: LEVAQUIN PO SCH (09:36)
[2019-07-17] MEDS: ELIQUIS PO SCH (09:36)
--- NOTE | 2019-07-17 12:23 | DISCHARGE SUMMARY ---
ADMISSION DATE: 07/10/2019 DISCHARGE DATE: 07/17/2019 ADMISSION DIAGNOSES: 1. 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 2. Splenic vein aneurysm. 3. Cholelithiasis. 4. Status post right colectomy. 5. Urinary tract infection. 6. Chronic obstructive pulmonary disease with exacerbation. 7. Atrial fibrillation, rate controlled. 8. Hypokalemia. 9. Leukocytosis. 10. Obstructive sleep apnea, on CPAP. DISCHARGE DIAGNOSES: 1. Thrombosis involving the superior mesenteric vein and right hepatic vein, on a heparin drip but it was stopped on the and started on Eliquis. It was followed by General Surgery. There has been no development of bowel ischemia and she is tolerating diet. 2. Urinary tract infection. She is continued on Levaquin. 3. Community-acquired pneumonia. Continued on Levaquin. 4. Chronic obstructive pulmonary disease, no exacerbation. 5. Atrial fibrillation, rate controlled on Eliquis. 6. Altered mental status, head CT negative. 7. Obstructive sleep apnea, on CPAP at night. CONSULTATIONS: 1. Dr. Cherise Pearce. 2. Dr. Amos. 3. Dr. Hernandez. 4. Dr. Nabor Gallardo. SURGERIES AND PROCEDURES: No surgical procedure performed. HOSPITAL COURSE: On 07/09/2019, Ms. Gisela Kaminski, an 84-year-old female, presented to the emergency department with abdominal pain for less than 1 day. She had recently undergone laparoscopic right colectomy performed by Dr. Gallardo a week prior to admission. The abdominal pain has been for less than 1 day, mostly localized to the left side of the abdomen, had associated nausea. No diarrhea or constipation. CT of the abdomen and pelvis performed, showed evidence of thrombosis involving the superior mesenteric and right hepatic veins. Was also noted to have some cholelithiasis and splenic artery aneurysm. Dr. Gallardo was reconsulted for those issues. She was also found to have a urinary tract infection as well, was started on antibiotic therapy. Her potassium was low and it was treated as well. She was started on a heparin drip for the thrombosis, antibiotics for the urinary tract infection. She was also found to have pneumonia. She was on antibiotics for that as well. She was not found to have any type of bowel ischemia. There was no suspicion for a leak. She was kept n.p.o. with gentle hydration in the beginning. Eventually a diet was added back. Dr. Cherise Pearce was consulted for anticoagulation. She does have some acute kidney injury while she was here, but that improved. Nephrology was consulted on the and felt like it was likely ischemic acute tubular necrosis with severe possible causes, specifically the fact that a CT had contrast, but she never qualified for dialysis. Urinary tract infection came back with gram-positive cocci. She was placed on Zyvox. It came back as Staphylococcus epidermidis which was oxacillin resistant, penicillin resistant and Bactrim resistant. It was negative for inducible clindamycin resistance. Dr. Amos with Infectious Disease was consulted for the urinary tract infection. Eventually Zyvox was stopped. A soft diet was added on 14 of July. She tolerated that. During all of this, being at her age of 84, she had become quite weak, so Physical Therapy was consulted. Her bowels were working. She was taken off the heparin drip and changed to Eliquis on the , that was yesterday. Continued on the Levaquin for the UTI. Her procalcitonin level was elevated at 1.3, which signified that she probably had a respiratory tract infection as well, but Levaquin was enough to help with that per Dr. Amos. She does have some mild acute delirium, likely from being not as active and being stuck in the hospital room most of the time, a little bit drowsy, so she had a head CT that was performed on the and that was negative. She is stable for discharge to rehab. DISCHARGE VITAL SIGNS: Temperature 98 degrees, heart rate 74, respiratory rate 16, blood pressure 109/59, O2 saturation 97% on 3 L nasal cannula. DISCHARGE LAB DATA: White blood cells 12,000, hemoglobin 11, hematocrit 35, platelet count 267,000. Sodium 133, potassium 3.8, BUN 39, creatinine is 1.8, glucose 86, calcium 8.9. Phosphorus 4.7. Albumin 2.4. Urinalysis, 70 protein, large fluid, large leukocytes, too numerous to count white blood cells, too numerous to count red blood cells, actually says negative for bacteria. There was some yeast that was also present. MICROBIOLOGY: Blood cultures negative. She has had a repeat urine culture yesterday that is pending, but the urine culture from 07/09/2019, was Staphylococcus epidermidis resistant to oxacillin, penicillin and Bactrim. PERTINENT IMAGIN. On 07/09/2019, abdominal and pelvic CT. Superior mesenteric vein and right hepatic vein thrombosis, cholelithiasis, splenic artery aneurysm, prominent atherosclerosis, small amount of ascites. This was IV contrasted only. 2. On 07/10/2019, chest CT. Cardiomegaly, pulmonary edema and tiny effusions, severe emphysema. 3. Bone scan nuclear study. Focal increased uptake at the lateral compartment of the left knee, likely degenerative. Very mild degenerative uptake associated with the right midfoot and base of the right. 4. On 07/11/2019, renal ultrasound. Small renal cysts. No hydronephrosis. 5. On 07/12/2019, chest x-ray. Cardiomegaly with mild pulmonary edema and basilar atelectasis, could be underlying pneumonia. 6. Chest x-ray on the 13 of July. Increasing opacity at the right lung base suggesting developing atelectasis and/or infiltrate. 7. Chest x-ray on the 3th. No change from prior. 8. Head CT on the 16 of July. No acute process. 9. A chest x-ray on the 17 of July. Improvement in the ill-defined nonspecific infiltrates in the lung bases. 10. EKG, atrial fibrillation, rate 108. DISCHARGE DIET: Mechanical soft. DISCHARGE ACTIVITY: As tolerated with Physical Therapy. DISCHARGE MEDICATIONS: 1. Mirapex 0.25 mg p.o. nightly. 2. Albuterol/Atrovent every 6 hours. 3. Montelukast sodium 10 mg p.o. nightly. 4. Tizanidine 2 mg p.o. t.i.d. p.r.n. 5. Toprol-XL 25 mg p.o. daily. 6. Tylenol 500 mg p.o. every 6 hours p.r.n. 7. Vitamin D3, 2000 units p.o. daily. 8. Cardizem 240 mg p.o. daily. 9. Albuterol/Atrovent nebs again every 4 hours p.r.n. 10. Eliquis 2.5 mg p.o. twice daily. 11. Lasix 40 mg p.o. daily. 12. Levaquin 250 mg p.o. daily for 10 days. 13. [place] 5 one tablet p.o. every 6 hours p.r.n. 14. Prilosec 20 mg p.o. twice daily. 15. Xanax 0.25 mg p.o. every 4 hours p.r.n. DISCHARGE PHYSICIAN FOLLOWUPS: 1. Dr. Eric Martin. 2. Dex Amos. 3. Dr. Hernandez. 4. Dr. Beltrán. 5. Dr. Gallardo. DISCHARGE INSTRUCTIONS: If your condition changes, contact physician and/or return to the emergency department. Changes may include but are not limited to shortness of breath, increased fatigue, excessive bleeding, unexplained weight loss or gain, unmanageable pain, signs or symptoms of infection. DISCHARGE DISPOSITION: [facility]. Dictated by BRITTANIE Still for Tony Espinoza MD Addendum: Patient seen and examined by myself. Agree with BRITTANIE note. It reflects my assessment and plan. Patient is being discharged in stable condition to rehab facility. Will be seen by PCP upon discharge. cc: BRITTANIE Still MD [facility]
[2019-07-17 15:50] VITALS: BP 124/71
--- NOTE | 2019-07-17 17:29 | INFECTIOUS DISEASE PROGRESS NO ---
DATE: 07/17/2019 PRESENT ILLNESS: The patient has a Staph epidermidis urinary tract infection and pneumonia. MEDICATIONS: This is the 7th day of treatment with Levaquin. PHYSICAL EXAMINATION: Vital Signs: Temperature is 97.9 degrees, pulse 64, respirations 19, blood pressure is 118/70. General: This is an obese, elderly female. She told me today she is feeling better. Head eyes ears, nose and throat: She can hear my spoken words and see near objects. They is not any white coating of her tongue. Neck: No stiffness. Lungs: Clear to auscultation. Cardiovascular: Heart rate is irregular. Abdomen: Soft. It is not tender. It is somewhat protuberant and the incisions are healing well. Neurologic: She is awake. She can move her extremities. There is no tremor. LAB AND RADIOLOGY: Chest x-ray shows improvement in the bibasilar infiltrates. CT scan of the head shows no acute disease. Urine is growing out Staph epidermidis which is susceptible to Levaquin. A repeat urine is pending. Blood cultures are negative. Urinalysis showed white cells but no bacteria. Procalcitonin is 1.3 which translates into very likely having pneumonia. Creatinine is 1.9. GFR is 25. CBC shows a white count of 12,180, hemoglobin 11, platelet count 304,000. ASSESSMENT AND PLAN: Patient has urinary tract infection and pneumonia. I plan on continuing Levaquin at its current dose. The patient's white count yesterday did rise a little bit and the repeat CBC for today is pending. COMORBIDITIES: The patient is elderly. She has chronic obstructive pulmonary disease, obstructive sleep apnea, and obesity. cc: Dex Amos MD
--- NOTE | 2019-07-17 22:06 | NEPHROLOGY PROGRESS NOTE ---
DATE: 07/17/2019 SUBJECTIVE: She states she is not doing well. She states she has been very weak and had difficulty with control of her torso, and so she has been kept in bed. She has eaten very little this morning. OBJECTIVE: Vital Signs: Blood pressure 109/59, heart rate 74, respirations 16, afebrile. General: Elderly woman, chronically ill, no distress. Skin: Warm and dry. Eyes: Conjunctivae are pink. Neck: Neck veins are not distended. Heart: Regular. No gallops. Lungs: Equal. No crackles. Shallow. Abdomen: Obese, soft, nontender. Bowel sounds present. Extremities: 1+ edema. No clubbing or cyanosis. IMPRESSION: Ischemic acute tubular necrosis. Good urine output. Her creatinine is slowly improving, 1.8 today. Electrolytes/acid base in target. I will sign off, but if I can be of further assistance, please do not hesitate to call. cc: Dmitry Hernandez MD
--- NOTE | 2019-07-18 01:26 | GENERAL SURGERY PROGRESS NOTE ---
DATE: 07/17/2019 SUBJECTIVE: She is doing okay. I think the plan is for rehab soon. OBJECTIVE: She has been afebrile. Pulse 66, blood pressure 103/64. Generally, she is more alert. Cardiovascular: Normal rate. Abdomen is soft, nontender. LABORATORY DATA: White count is stable at 12, hematocrit is 35. Creatinine is 1.8. She has been transitioned to Eliquis twice daily. ASSESSMENT AND PLAN: This is a 84-year-old female status post right colectomy. She developed superior mesenteric vein thrombus and a urinary tract infection. She has been in the hospital about a week with this, and plan is to go to rehab. She is quite weak. I will see her next week. I would recommend continuing Eliquis, most likely indefinitely given her atrial fibrillation as well, and she is on Levaquin for her urinary tract infection. cc: Abby Gallardo MD
== END 2019-07-17 18:17 | DRG 299 ==
LOC: ED 18:52 → 1N 07-10 01:59 → SUATTDRO 07-10 01:59
PROVIDERS: ATTEND Internal Medicine

== ENCOUNTER 2019-09-26 16:01 | Inpatient (IN) ==
[2019-09-26] MEDS ORDERED: NS 1,000 ML IV ONE (17:07)
--- NOTE | 2019-09-26 17:13 | Diag Imaging Result Doc PS360 ---
EXAM: CHEST-1 VIEW HISTORY: Shortness of breath TECHNIQUE: Single view COMPARISON: 07/17/2019 FINDINGS: Poor inspiratory effort. The heart is enlarged. There is pulmonary edema and small pleural effusions. Increased interstitial markings in the lung bases and in the mid right lung. IMPRESSION: Cardiomegaly with pulmonary edema and small pleural effusions. There may be underlying pneumonia as well. Electronically signed by Alberto Amezcua 09/26/2019 5:11 PM
[2019-09-26 18:07] LABS: URINE SOURCE CLEAN CATCH
[2019-09-26 18:11] LABS: BILIRUBIN URINE NEGATIVE (NEGATIVE); BLOOD URINE NEGATIVE (NEGATIVE); COLOR YELLOW; GLUCOSE URINE NEGATIVE (NEGATIVE); KETONE URINE NEGATIVE (NEGATIVE); LEUKOCYTES URINE LARGE (NEGATIVE); NITRITE URINE POSITIVE (NEGATIVE); PH URINE 6.5; PROTEIN URINE NEGATIVE (NEGATIVE); SP GRAVITY URINE 1.009; TURBIDITY URINE HAZY (CLEAR); UROBILINOGEN URINE NORMAL (NORMAL)
[2019-09-26 18:13] LABS: BASO# 0.02 X1000 (0.0-0.2); BASO% 0.2 % (0.0-0.8); EOS# 0.25 X1000 (0.0-0.7); HEMATOCRIT 32.8 % (37.0-47.0); HEMOGLOBIN 9.4 g/dL (12.0-16.0); IMM GRAN# 0.03 X1000 (0.0-0.04); IMM GRAN% 0.2 % (0.0-0.5); LYMPH# 0.61 X1000 (1.2-3.4); LYMPH% 4.8 % (20.5-51.1); MCH 25.5 PG (27-31); MCHC 28.7 g/dL (33-37); MCV 88.9 FL (81-99); MONO# 0.88 X1000 (0.11-0.59); MONO% 6.9 % (1.7-9.3); MPV 8.5 FL (7.4-10.4); NEUT# 10.94 X1000 (1.4-6.5); NEUT% 85.9 % (42.2-75.2); PLT 373 X1000 (130-400); RBC 3.69 XMIL (4.2-5.4); RDW 16.1 % (11.5-14.5); UR EPITHELIAL CELLS <10 /HPF (<10); URINE BACTERIA 2+ /HPF; URINE RBC <10 /HPF (<10); URINE WBC TNTC /HPF (<10); WBC 12.73 X1000 (4.8-10.8)
[2019-09-26 18:18] LABS: INR 1.11; PROTIME 14.4 Seconds (11.0-16.0)
[2019-09-26 18:19] LABS: PTT 33.4 Seconds (22.3-41.8)
[2019-09-26 18:32] LABS: ALB/GLOB RATIO 1.2; ALBUMIN 3.7 g/dL (3.5-5.0); CREATININE 0.9 mg/dL (0.5-0.9); POTASSIUM 3.9 mmol/L (3.5-5.1); TOTAL BILIRUBIN 0.53 mg/dL (0.20-1.00); TOTAL PROTEIN 6.8 g/dL (6.3-8.3)
[2019-09-26] MEDS ORDERED: LEVAQUIN 750 MG/D5W 750 MG/150 ML IVPB IV ONE (18:46)
--- NOTE | 2019-09-26 19:10 | EKG Report ---
Test Performed on : 09/26/2019 6:33:59 PM Test Reason : Shortness of breath Blood Pressure : / mmHG Vent. Rate : 097 BPM Atrial Rate : 122 BPM P-R Int : 000 ms QRS Dur : 120 ms QT Int : 392 ms P-R-T Axes : 000 041 008 degrees QTc Int : 497 ms Atrial fibrillation. Right bundle branch block Cannot rule out Anterior infarct , age undetermined Abnormal ECG When compared with ECG of 09-JUL-2019 20:40, (Unconfirmed) No significant change was found Unconfirmed Result
[2019-09-26] MEDS ORDERED: DUONEB (A & A) INH ONE (19:35)
--- NOTE | 2019-09-26 20:42 | Diag Imaging Result Doc PS360 ---
EXAM: CT ANGIOGRAM ABDOMEN AND PELVIS HISTORY: Abdominal Pain hx of SMA occlusion TECHNIQUE: CT angiogram abdomen and pelvis with intravenous contrast. MIP images obtained. COMPARISON: CT abdomen and pelvis from 07/09/2019 FINDINGS: There is a moderate-sized right pleural effusion measuring 4.6 cm posteriorly and inferiorly in the midline with a smaller left pleural effusion measuring approximately 2 cm. Heart is mildly enlarged. Approximately 40% narrowing at the takeoff of the celiac artery. Less than 30% narrowing at the takeoff of the superior mesenteric artery. Moderate atherosclerosis in the midportion approximately 50% narrowing. Mild narrowing of between 50 and 70% at the takeoff of each renal artery. Mild dilatation to the distal abdominal aorta measuring 2.7 cm. There is a 10 mm calcified stone within the gallbladder. No focal hepatic or splenic abnormality. No inflammation about the pancreas. Normal adrenal glands. No hydronephrosis. No bowel obstruction. Small left free fluid about the liver and in the right paracolic gutter. There are sutures in the right lower quadrant. The urinary bladder is distended and appears normal. Uterus is small. Normal common iliac arteries. Normal external iliac arteries. There is atherosclerosis in the common femoral arteries with narrowing of approximately 40%. IMPRESSION: Arterial narrowing as described above. This exam was performed using automated exposure control, adjustment of mA or kV according to patient size, and/or use of iterative reconstruction technique. Electronically signed by Alberto Amezcua 09/26/2019 8:40 PM
[2019-09-26] MEDS ORDERED: LASIX IV ONE (21:04)
[2019-09-26] MEDS ORDERED: ZOFRAN IV PRN (23:07)
--- NOTE | 2019-09-26 23:49 | HISTORY AND PHYSICAL ---
PRIMARY CARE PHYSICIAN: Dr. Eric Martin. CHIEF COMPLAINT: Shortness of breath x3 days. HISTORY OF PRESENTING ILLNESS: An 84-year-old obese female with a history of COPD, hypertension, obstructive sleep apnea, atrial fibrillation, who presented to emergency department with 3 days history of worsening shortness of breath and cough. The patient states that she was having difficulty breathing and subsequently she had come to the emergency department. In the ED, she was evaluated. She was put on supplemental oxygen. She had imaging done which did show a possible pneumonia and heart failure. She was given diuresis with Lasix and she improved somewhat. Due to her presenting symptoms, she will require admission for further management. At the time of my examination, patient denied any headache, fever, chills, chest pain, hemoptysis, melena, but complained of shortness of breath, cough and not feeling well. PAST MEDICAL HISTORY: Includes COPD, hypertension, obesity, obstructive sleep apnea, atrial fibrillation. PAST SURGICAL HISTORY: Right colectomy, left carpal tunnel surgery, right ear surgery, cataract surgery. ALLERGIES: Penicillin and sulfa. CURRENT MEDICATIONS: Include albuterol nebulizers q.4 hours, Eliquis 2.5 mg p.o. b.i.d., diltiazem 240 mg p.o. daily, Nexium 20 mg p.o. daily, Lasix 40 mg p.o. daily, metoprolol 25 mg p.o. daily, Singular 10 mg p.o. at bedtime, Mirapex 0.25 mg p.o. at bedtime, tizanidine 2 mg p.o. t.i.d. SOCIAL HISTORY: She is a former smoker. No history of alcohol or illicit drug use. FAMILY HISTORY: Positive for coronary disease father. REVIEW OF SYSTEMS: Fourteen-point review of systems is as in HPI. Other systems negative. PHYSICAL EXAMINATION: GENERAL: Cooperative, friendly female, she is resting more comfortably now. VITAL SIGNS: Temperature 98.4 degrees, pulse 92, respiration 18, blood pressure 149/102. HEENT: Atraumatic, normocephalic. Extraocular movements intact. PERRLA. NECK: No masses. CHEST: Rhonchi. CARDIOVASCULAR: Regular rate and rhythm. ABDOMEN: Soft, positive bowel sounds. EXTREMITIES: +1 edema. NEUROLOGIC: She is awake, alert, oriented x3. : No bladder distention. SKIN: Warm. LABORATORIES AND STUDIES: Sodium 140, potassium 3.9, chloride 99, CO2 is 33, BUN is 21, creatinine 0.9 glucose 103. ProBNP is 2546. Troponin is 22. WBC 12.73, hemoglobin 9.4, hematocrit 32.8, platelets 373,000. Chest x-ray shows cardiomegaly with pulmonary edema and possibility of underlying pneumonia. ASSESSMENT: This 84-year-old female with a history of chronic obstructive pulmonary disease, hypertension, obesity and atrial fibrillation, who had presented to emergency department with 3 days history of progressive shortness of breath. She was evaluated in the emergency department, was suspected she was in heart failure and possible also pneumonia. Subsequently, she will require admission for further management. ASSESSMENT: 1. Acute congestive heart failure exacerbation. 2. Possible pneumonia. 3. Urinary tract infection. 4. Chronic obstructive pulmonary disease. 5. Atrial fibrillation. PLAN: 1. We will admit patient to medical floor with telemetry. 2. Continue with gentle diuresis with Lasix. 3. Check blood cultures. Start patient on IV antibiotics. 4. We will check urine culture. 5. Continue with duo nebs. 6. Continue monitor patient on telemetry. 7. The patient is already on anticoagulation with Eliquis and that will suffice for DVT prophylaxis. 8. We will continue to follow and reassess, make further recommendation based on patient's clinical course. cc: Phoenix Rodgers MD
--- NOTE | 2019-09-27 00:15 | PROVIDER DOCUMENTATION ---
This chart was entered by Cherise Soria Scribe, acting as scribe for Don Moe MD. HPI-Abdominal Pain/GI Problem - General Stated Complaint: ABD PAIN Time Seen by Provider: 09/26/19 16:29 Source: patient, EMS ([facility]) Allergies/Adverse Reactions: Patient Allergies Allergy/AdvReac Type Severity Reaction Status Date / Time Sulfa (Sulfonamide Allergy Intermediate HIVES Verified 07/09/19 20:04 Antibiotics) Penicillins Allergy Unknown RASH Verified 07/09/19 20:04 Home Medications: Home Medication List Medication Instructions Recorded Confirmed Last Taken Type Pramipexole [Mirapex] 0.25 mg PO QHS 12/12/12 09/26/19 06/29/19 19:00 History Cholecalciferol (Vitamin D3) 2,000 unit PO DAILY 06/23/19 09/26/19 Unknown History [Vitamin D3] Ipratropium/Albuterol Sulfate 3 ml INHALATION Q6HR 06/23/19 09/26/19 06/29/19 13:00 History [Iprat-Albut 0.5-3(2.5) mg/3 ml] Metoprolol Succinate E.r. [Toprol 25 mg PO DAILY 06/23/19 09/26/19 Unknown History Xl] Montelukast Sodium 10 mg PO HS 06/23/19 09/26/19 06/29/19 19:00 History Tizanidine HCl 2 mg PO TID PRN PRN 06/23/19 09/26/19 06/29/19 19:00 History Albuterol 2.5MG/Ipratrop 0.5MG 3 ml INH Q4H PRN PRN #60 neb 07/17/19 09/26/19 Unknown Rx [Duoneb (A & A)] Apixaban [Eliquis] 2.5 mg PO BID #60 tab 07/17/19 09/26/19 Unknown Rx Diltiazem C.d. [Cardizem Cd] 240 mg PO DAILY #60 cap 07/17/19 09/26/19 Unknown Rx Furosemide 40 mg PO DAILY #60 tab 07/17/19 09/26/19 Unknown Rx Budesonide/Formoterol Fumarate 2 puff INH HS 09/26/19 09/26/19 Unknown History [Symbicort 160-4.5 Mcg Inhaler] Esomeprazole [Nexium] 20 mg PO DAILY 09/26/19 09/26/19 Unknown History - History of Present Illness-ABD Nature of Presenting Problems: 84 yowf presents to the ED via EMS with CC of acute onset RLQ LLQ abdominal pain this am with worsening sob. Pt sts she had a normal bm then pt started. NO blood in stool was noted. Pt on evaluation is on continuos O2 and sts pain has went from 12/19 to 08/21 since coming to ED. The patient denies any vomiting. The family report that the patient has had some progressive worsening shortness of breath over the last few days with laying down. Abdominal Pain Onset Location: reports: RLQ, LLQ Severity in ED: reports: mild Onset/Duration: reports: this morning Timing: reports: still present, improving Activities at Onset: reports: light activity. denies: other (pain onset after BM) Exposure to sick contacts?: No Associated Symptoms: reports: shortness of breath. denies: chest pain, fever/chills, nausea, vomiting Last BM: this morning Dark Stools Present?: reports: none noticed Rectal Bleeding: reports: none # of Diarrhea Episodes: 0 Rectal Pain: reports: none # of Vomiting Episodes: 0 Bruising or Bleeding Gums?: No Similar Symptoms Previously?: Yes Recently seen or treated by another doctor?: No Review of Systems - Adult - REVIEW OF SYSTEMS - ADULT Constitutional: reports: no symptoms reported. denies: fever Eyes: reports: no symptoms reported. denies: eye pain Ears, Nose, Mouth & Throat: reports: no symptoms reported. denies: throat pain Cardiovascular: reports: see HPI, orthopnea. denies: chest pain, palpitations Respiratory: reports: see HPI, shortness of breath Gastrointestinal: reports: see HPI, abdominal pain. denies: diarrhea, nausea, vomiting Genitourinary: reports: no symptoms reported Musculoskeletal: denies: back pain, neck pain Integumentary: reports: no symptoms reported Neurological: reports: no symptoms reported Psychiatric: reports: no symptoms reported. denies: alcohol/drug dependence Endocrine: reports: no symptoms reported Hematologic/Lymphatic: reports: no symptoms reported Allergic/Immunologic: reports: no symptoms reported Past History - Adult - PAST MEDICAL HISTORY-ADULT Review of Records: reports: Old Records Reviewed, Nursing Assessment Review, Medications Reviewed, Social history reviewed & non-contributory. Major Childhood Illnesses: reports: denies history Cardiovascular: reports: HTN Respiratory: reports: COPD, sleep apnea Gastrointestinal: reports: denies history, polyps, other (hx of mesenteric ischemia) Obstetrical/Gynecological: reports: denies history Genitourinary: reports: kidney disease Musculoskeletal: reports: denies history Neurological: reports: denies history Psychiatric: reports: denies history Endocrine/Immune: reports: denies history Other Conditions: reports: denies history - PRIOR SURGERIES/PROCEDURES Surgical/Procedure History: reports: appendectomy, colonoscopy, bowel surgery - IMMUNIZATION STATUS Childhood Immunizations: See Nurse Assessment Flu Vaccine: See Nurse Assessment - FAMILY HISTORY Family History: reviewed, not pertinent - SOCIAL HISTORY Smoking: denies Substance Use: denies Living Situation: family Physical Exam-General - PHYSICAL EXAM-ADULT Initial Vital Signs Reviewed: Yes - CONSTITUTIONAL General Appearance: alert, mild distress, lethargic - EYES Eyes: negative: conjuctival exudate, photophobia, scleral icterus - HEAD, EARS, NOSE, MOUTH & THROAT HENMT: normocephalic/atraumatic, pharynx normal. negative: moist mucous membranes (dry), angioedema - NECK Neck: non-tender, supple - RESPIRATORY Respiratory: respiratory distress (mild), decreased breath sounds (bases), rales (bilaterally) - CARDIOVASCULAR Cardiovascular: other (irregular rhythm). negative: no edema (3+ LE edema to thigh) - GASTROINTESTINAL (ABDOMEN) Abdominal Exam: soft, guarding, rebound, tenderness (RLQ) - MUSCULOSKELETAL Extremity: non-tender, swelling (bilaterally) - SKIN Integumentary: normal color. negative: jaundice, pallor - NEUROLOGIC Neurologic: grossly normal - PSYCHIATRIC Psych/Mental Status: normal thought process, oriented x 3 Progress - PLAN OF CARE/RESULTS Result Diagrams: 09/26/19 17:53 09/26/19 17:53 - REASSESSMENT Reassessment #1 Status: other (Scribe note reviewed and updated.) Reassessment #2 Status: other (Given IWOB and desaturation on home O2, will admit for volume overload. Discussed with the hospitalist team who has accepted the patient.) - XRAY 1 XRAY: Bilateral XRAY Study: Chest Impression: See EMR Report (EXAM: CHEST-1 VIEW HISTORY: Shortness of breath TECHNIQUE: Single view COMPARISON: 07/17/2019 FINDINGS: Poor inspiratory effort. The heart is enlarged. There is pulmonary edema and small pleural effusions. Increased interstitial markings in the lung bases and in the mid right lung. IMPRESSION: Cardiomegaly with pulmonary edema and small pleural effusions. There may be underlying pneumonia as well. Electronically signed by Alberto Amezcua 09/26/2019 5:11 PM 09/26/19 171 Interpreting Physician: Alberto Amezcua MD Dictated Date/Time: 09/26/19 171 cc: Don Moe MD; Eric Martin) Departure - Departure Date of Disposition Decision: 09/27/19 Time of Disposition Decision: 00:11 DIAGNOSIS: CHF exacerbation Qualifiers: Heart failure type: unspecified Qualified Code(s): I50.9 - Heart failure, unspecified Pneumonia Qualifiers: Pneumonia type: due to unspecified organism Laterality: unspecified laterality Lung location: unspecified part of lung Qualified Code(s): J18.9 - Pneumonia, unspecified organism Disposition: ADMITTED INPATIENT 09 Certified Medical Emergency: Emergent Condition: Fair - Critical Care Note This patient required my direct & personal management of CC.: No Attestation - Physician/ CHELSEA Attestation Patient care was provided by Advanced Practice Provider:: No The physician spent face to face time with patient:: Yes Advanced Practice Provider documentation review:: Supervising physician onsite and consulted in the evaluation and care of this patient. The physician did have a face to face encounter with the patient. This chart was documented by the indicated scribe, (Cherise Soria Scribe) and accurately reflects the services I performed and decisions made by me, Don Moe MD, as attested by the provider's signature.
[2019-09-27] MEDS: ZANAFLEX PO PRN ×3 (00:59→19:54)
[2019-09-27] MEDS: MIRAPEX PO SCH ×2 (03:15→20:02)
[2019-09-27] MEDS: PRILOSEC PO SCH ×2 (05:58→06:00)
[2019-09-27 08:05] LABS: BASO# 0.02 X1000 (0.0-0.2); BASO% 0.2 % (0.0-0.8); EOS# 0.09 X1000 (0.0-0.7); EOS% 1.1 % (0.0-10.0); HEMATOCRIT 26.2 % (37.0-47.0); HEMOGLOBIN 7.3 g/dL (12.0-16.0); IMM GRAN# 0.02 X1000 (0.0-0.04); IMM GRAN% 0.2 % (0.0-0.5); LYMPH# 0.55 X1000 (1.2-3.4); LYMPH% 6.7 % (20.5-51.1); MCH 25.1 PG (27-31); MCHC 27.9 g/dL (33-37); MONO# 0.91 X1000 (0.11-0.59); MONO% 11.1 % (1.7-9.3); MPV 8.8 FL (7.4-10.4); NEUT# 6.59 X1000 (1.4-6.5); NEUT% 80.7 % (42.2-75.2); PLT 293 X1000 (130-400); RBC 2.91 XMIL (4.2-5.4); WBC 8.18 X1000 (4.8-10.8)
[2019-09-27 08:26] LABS: CALCIUM 8.4 mg/dL (8.8-10.2); CREATININE 0.9 mg/dL (0.5-0.9); POTASSIUM 3.4 mmol/L (3.5-5.1)
[2019-09-27] MEDS: DUONEB (A & A) INH PRN ×5 (08:38→23:46)
[2019-09-27] MEDS ORDERED: ELIQUIS PO SCH (09:00)
[2019-09-27] MEDS: LASIX IV SCH ×2 (10:38→20:03)
[2019-09-27] MEDS: CARDIZEM CD PO SCH (10:38)
[2019-09-27] MEDS: TOPROL XL PO SCH (10:38)
[2019-09-27] MEDS: TYLENOL PO PRN (15:00)
--- NOTE | 2019-09-27 17:28 | EKG Report ---
Test Performed on : 09/27/2019 4:35:45 PM Test Reason : Evaluate for heart rhythm Blood Pressure : / mmHG Vent. Rate : 076 BPM Atrial Rate : 102 BPM P-R Int : 000 ms QRS Dur : 132 ms QT Int : 444 ms P-R-T Axes : 000 048 026 degrees QTc Int : 499 ms Atrial fibrillation. Right bundle branch block Abnormal ECG When compared with ECG of 26-SEP-2019 18:33, (Unconfirmed) No significant change was found Confirmed by Zohra Hawley MD ([id number]) on 09/29/2019 7:40:14 AM
--- NOTE | 2019-09-27 17:54 | PROGRESS NOTE ---
DATE: 09/27/2019 OVERNIGHT EVENTS: Ms. Kaminski was admitted for shortness of breath, cough of about 3 days' duration. She was found to have acute pulmonary edema and bilateral pleural effusion and was diagnosed with CHF exacerbation and was started on intravenous diuretics, as well as also started on intravenous antibiotics. Overnight no other acute events. SUBJECTIVE: Ms. Kaminski is feeling better. She states she is not hurting as much as she did before. She denies any chest pain. She is feeling a little short of breath. She is occasionally coughing, but it is not significant. VITAL SIGNS: Temperature 97.9 degrees, pulse 108, respiratory rate 20, blood pressure 101/46. She is saturating 98% on 3 L nasal cannula. PHYSICAL EXAMINATION: General: She is in mild distress because of shortness of breath. HEENT: Oral cavity is moist. Respiratory: She has significantly decreased respiratory effort. Decreased lung sounds with inspiratory crackles in the infrascapular region. Cardiovascular: S1, S2 normal. Irregularly irregular. She has a systolic murmur affecting the apical region. No rub or gallop. Abdomen: Soft. She has mild right quadrant and left quadrant tenderness which is without any rebound or rigidity. Active bowel sounds. Extremities: She has bilateral lower extremity edema. Neurologic: She is alert and oriented x3. LABS: Suggest hemoglobin of 7.3, platelet of 293,000. Potassium of 3.4, BUN of 20, creatinine 0.9. Her TSH was 3.8. MICROBIOLOGY: No positive data. Her urine culture has gram-negative aylin. IMAGING: No new imaging. ASSESSMENT AND PLAN: 1. Acute on Chronic hypoxic respiratory failure due to acute pulmonary edema and bilateral pleural effusion. Her echocardiogram in June 2019 was unremarkable. I will follow up repeat echocardiogram. Continue intravenous Lasix. Continue oxygenation to maintain saturation more than 92%. I will follow up with chest x-ray tomorrow, as needed. Her intermittent atrial fibrillation could be a contributing factor. 2. Suspected pneumonia. The patient had leukocytosis on presentation and has been coughing. I will follow up with sputum culture. I will keep her on intravenous antibiotics. 3. Acute cystitis without hematuria due to gram-negative aylin. Continue intravenous levofloxacin. Follow up final urine culture results. 4. Atrial fibrillation with rapid ventricular response. Currently her heart rate is in acceptable range. I will continue her on oral diltiazem. I will increase the dose of Eliquis and I will follow up with CBC tomorrow. I will also continue her oral metoprolol. 5. 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 Continue current dose of Eliquis. 6. History of COPD and asthma: Continue nebulized bronchodilators as needed. DISPOSITION: I will continue to monitor the patient inside the hospital. Plan of care discussed with her. Her questions have been answered. cc: Vineet Woodard MD MTDElizabeth
[2019-09-27] MEDS: SINGULAIR PO SCH (20:02)
[2019-09-27] MEDS: ELIQUIS PO SCH (20:20)
[2019-09-27] MEDS ORDERED: LEVAQUIN 500 MG/D5W 500 MG/100 ML IVPB IV SCH (21:00)
[2019-09-27] MEDS ORDERED: MIRAPEX PO SCH (21:00)
[2019-09-28] MEDS: TYLENOL PO PRN ×3 (01:42→22:15)
[2019-09-28] MEDS: PRILOSEC PO SCH (06:37)
[2019-09-28 08:05] LABS: BASO# 0.02 X1000 (0.0-0.2); BASO% 0.2 % (0.0-0.8); EOS# 0.18 X1000 (0.0-0.7); EOS% 2.2 % (0.0-10.0); HEMATOCRIT 29.2 % (37.0-47.0); HEMOGLOBIN 8.3 g/dL (12.0-16.0); IMM GRAN# 0.02 X1000 (0.0-0.04); IMM GRAN% 0.2 % (0.0-0.5); LYMPH# 0.61 X1000 (1.2-3.4); LYMPH% 7.4 % (20.5-51.1); MCH 25.3 PG (27-31); MCHC 28.4 g/dL (33-37); MONO# 0.87 X1000 (0.11-0.59); MONO% 10.5 % (1.7-9.3); MPV 8.9 FL (7.4-10.4); NEUT# 6.56 X1000 (1.4-6.5); NEUT% 79.5 % (42.2-75.2); PLT 337 X1000 (130-400); RBC 3.28 XMIL (4.2-5.4); WBC 8.26 X1000 (4.8-10.8)
[2019-09-28 08:21] LABS: CALCIUM 8.8 mg/dL (8.8-10.2); CREATININE 1.1 mg/dL (0.5-0.9); POTASSIUM 3.3 mmol/L (3.5-5.1)
--- NOTE | 2019-09-28 09:04 | Diag Imaging Result Doc PS360 ---
CHEST-2 VIEWS - 09/28/2019 INDICATION: hypoxia COMPARISON: 09/26/2019 FINDINGS: There has been slight improvement in the diffuse bilateral faint interstitial pulmonary edema. Stable severe cardiomegaly and pulmonary vascular congestion. Stable small pleural effusions. There is residual edema in the lung bases. IMPRESSION: Improvement in the pulmonary edema. Electronically signed by Facundo Wheeler 09/28/2019 9:01 AM
[2019-09-28] MEDS: TOPROL XL PO SCH (09:39)
[2019-09-28] MEDS: LASIX IV SCH ×2 (09:39→20:32)
[2019-09-28] MEDS: CARDIZEM CD PO SCH (09:39)
[2019-09-28] MEDS: ELIQUIS PO SCH ×2 (09:39→20:33)
[2019-09-28] MEDS: DUONEB (A & A) INH SCH ×5 (10:14→22:37)
[2019-09-28] MEDS: KLOR-CON PO SCH ×2 (12:14→16:36)
[2019-09-28] MEDS: ZITHROMAX PO SCH (12:14)
[2019-09-28] MEDS: ROCEPHIN 1 GM in NS 50 ML IV SCH (12:15)
[2019-09-28] MEDS: SOLU-MEDROL IV SCH ×2 (12:16→20:32)
--- NOTE | 2019-09-28 12:42 | PROGRESS NOTE ---
DATE: 09/28/2019 INTERVAL HISTORY: She received EKG which had atrial fibrillation yesterday. She continued to remain on nasal cannula oxygen. She has been making a good amount of urine. SUBJECTIVE: Ms. Kaminski denies any chest pain. She is feeling short of breath. She denies any nausea, vomiting. She complains of some nonspecific abdominal discomfort. We discussed about congestive heart failure, pneumonia, urine infection. I answered all of her questions. VITAL SIGNS: Temperature 97.6 degrees, pulse 79, respiratory rate 20, blood pressure 123/69, saturating 95% on 4 L nasal cannula. PHYSICAL EXAMINATION: General: She is in mild distress because of shortness of breath. HEENT: Oral cavity is moist. Lungs: She has decreased air entry bilateral lung bower. She also has inspiratory crackles in infrascapular region. Cardiovascular: S1, S2 normal. Irregularly irregular. No murmur or gallop. Abdomen: Soft, nontender, except mild tenderness in the right lower quadrant which is not reproducible. Active bowel sounds. Extremities: She has lower extremity edema bilaterally. General: She does not have urine catheter. Neurologic: She is alert and oriented x3. She often times uses abdominal muscles for breathing. LABORATORY DATA: Suggestive of WBC of 8000, hemoglobin 8.3, platelets 337,000. Potassium of 3.3 which is currently being repleted. Creatinine of 1.1. Microbiology: Urine culture is growing Escherichia coli which is sensitive to cefazolin, but resistant to Levaquin. Chest x-ray image suggests improvement in pulmonary edema. ASSESSMENT AND PLAN: 1. Acute on chronic hypoxic respiratory failure due to combination of acute pulmonary edema, bilateral pleural effusion, acute chronic obstructive pulmonary disease and asthma exacerbation. The patient also has history of obstructive sleep apnea requiring CPAP at nighttime. Continue baseline oxygen which is 3 to 4 L during daytime and CPAP while she is asleep to maintain saturation more than 90%. Chest x-ray suggests improvement. 2. Acute pulmonary edema with bilateral pleural effusion and cardiomegaly. Her echocardiogram in June 2019 did not have significant left ventricular dysfunction. I will repeat another echocardiogram. Electrocardiogram yesterday had atrial fibrillation and right bundle branch block without any ST-T changes. I will continue intravenous diuretics with close input and output monitoring. 3. Acute cystourethritis due to Escherichia coli and suspected right lower lobe pneumonia. Change antibiotics from Levaquin to intravenous ceftriaxone and azithromycin. Blood culture data have been unremarkable. 4. Acute asthma and chronic obstructive pulmonary disease exacerbation. I will start her on scheduled inhaled bronchodilators and intravenous steroids. If needed, I will repeat chest x- ray in future. 5. Atrial fibrillation with rapid ventricular response, currently heart rate in acceptable range. Continue oral diltiazem and oral metoprolol. I increased her Eliquis dose. 6. 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 Continue current dose of Eliquis and monitor complete blood count. DISPOSITION: I will continue to monitor the patient inside the hospital. Plan of care discussed with the patient. All questions have been answered. I will also consult physical therapy tomorrow based on her respiratory status. cc: Vineet Woodard MD
--- NOTE | 2019-09-28 17:27 | ECHO REPORT ---
ORDER DATE: 09/27/2019 INTERPRETING PHYSICIAN: Dr. Rc Cabrera. ECHOCARDIOGRAPHIC MEASUREMENTS: 1. Interventricular septum: 1.1 cm. 2. Left ventricular posterior wall: 1.0 cm. 3. Diastolic diameter: 4.8 cm. 4. Aorta: 3.4 cm. 5. Left atrial index: 44. SUMMARY OF THE 2-DIMENSIONAL IMAGIN. Aortic valve leaflets were trileaflet, mildly sclerosed, opening normally. 2. Pulmonic valve was normal. 3. There is mild pulmonary regurgitation. 4. There is moderate left atrial enlargement. 5. Tricuspid valve was normal. 6. There is moderate mitral annular calcification associated with calcification noted on the anterior mitral valve leaflet with restriction of anterior mitral valve leaflet movement. 7. Normal left ventricular cavity size. 8. Estimated ejection fraction of 70%. 9. There is mild tricuspid regurgitation. 10. Peak velocity across the tricuspid valve was 3 meters per second. 11. Pulmonary artery systolic pressure of 50 mmHg. 12. There is no pericardial effusion. 13. Mitral Valve area by planimetry 2.5 Sq.cm with mean gradient of 7 mmHg mild mitral stenosis. cc: MD Vineet Britt MD [facility]
[2019-09-28] MEDS ORDERED: MIRAPEX PO SCH (18:00)
[2019-09-28] MEDS: SINGULAIR PO SCH (20:33)
[2019-09-28] MEDS: ZANAFLEX PO PRN (22:15)
[2019-09-29] MEDS: SOLU-MEDROL IV SCH ×3 (05:47→20:22)
[2019-09-29] MEDS: DUONEB (A & A) INH SCH ×6 (05:49→22:01)
[2019-09-29] MEDS: ZANAFLEX PO PRN (06:20)
[2019-09-29] MEDS: PRILOSEC PO SCH (06:21)
[2019-09-29 08:06] LABS: HEMATOCRIT 29.2 % (37.0-47.0); HEMOGLOBIN 8.5 g/dL (12.0-16.0); LYMPH% 3.4 % (20.5-51.1); MCH 25.4 PG (27-31); MCHC 29.1 g/dL (33-37); MCV 87.4 FL (81-99); MONO# 0.08 X1000 (0.11-0.59); MONO% 1.4 % (1.7-9.3); MPV 9.2 FL (7.4-10.4); NEUT# 5.53 X1000 (1.4-6.5); NEUT% 95.2 % (42.2-75.2); PLT 369 X1000 (130-400); RBC 3.34 XMIL (4.2-5.4); RDW 15.9 % (11.5-14.5); WBC 5.81 X1000 (4.8-10.8)
[2019-09-29] MEDS: ELIQUIS PO SCH ×2 (08:40→20:22)
[2019-09-29] MEDS: TOPROL XL PO SCH (08:40)
[2019-09-29] MEDS: ZITHROMAX PO SCH (08:40)
[2019-09-29] MEDS: CARDIZEM CD PO SCH (08:40)
[2019-09-29] MEDS: LASIX IV SCH ×2 (08:40→20:22)
[2019-09-29 08:49] LABS: CALCIUM 9.2 mg/dL (8.8-10.2); CREATININE 1.1 mg/dL (0.5-0.9); MAGNESIUM 1.9 mg/dL (1.5-2.7); POTASSIUM 4.4 mmol/L (3.5-5.1)
[2019-09-29 09:13] LABS: BANDS 2 % (0-1); LYMPHS 6 % (21-51); SEGS 92 % (42-75)
[2019-09-29] MEDS: TYLENOL PO PRN ×2 (11:17→22:57)
[2019-09-29] MEDS: ROCEPHIN 1 GM in NS 50 ML IV SCH (11:21)
[2019-09-29] MEDS: MIRAPEX PO SCH (18:18)
[2019-09-29] MEDS: SINGULAIR PO SCH (20:22)
--- NOTE | 2019-09-29 20:58 | PROGRESS NOTE ---
DATE: 09/29/2019 SUBJECTIVE: The patient is sitting at the edge of the bed. She states that she feels much better today. She is back to her baseline level of oxygen requirement. OBJECTIVE: Vital Signs: Temperature 97.5 degrees, blood pressure 113/71, heart rate 81, respirations 18, O2 saturation 97% on 4 L nasal cannula. General: This is a chronically ill- appearing elderly female lying in bed in no acute distress. Heart: S1, S2 normal. Regular rate and rhythm. Lungs: Diminished breath sounds bilaterally. Abdomen: Positive bowel sounds. Soft, obese, nontender, nondistended. Extremities: No edema. No cyanosis. Neurologic: The patient is alert and oriented x3. LABS: White blood cell count 5.8, hemoglobin 8.5, hematocrit 29, platelets 369,000. Sodium 140, potassium 4.4, chloride 94, CO2 28, BUN 23, creatinine 1.1, glucose 161, phosphorus 5.1, magnesium 1.9. ASSESSMENT AND PLAN: 1. Acute on chronic hypoxemic respiratory failure secondary to pulmonary edema, bilateral pleural effusions and chronic obstructive pulmonary disease exacerbation. Continue to treat the underlying issues. 2. Acute pulmonary edema. Improved. 3. Chronic obstructive pulmonary disease exacerbation. Continue with bronchodilator therapy and supplemental oxygen. 4. Urinary tract infection secondary to Escherichia coli. Continue on the current antibiotic regimen. 5. Pneumonia. Continue with antibiotics and supplemental oxygen. 6. Obesity. Aware. 7. 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 Continue on Eliquis. 8. Atrial fibrillation. Continue on Cardizem, Lopressor and Eliquis. 9. Disposition. Continue with physical therapy. cc: Shanda Staley MD
[2019-09-30] MEDS: DUONEB (A & A) INH SCH ×6 (04:06→22:37)
[2019-09-30] MEDS: ZANAFLEX PO PRN ×3 (04:52→23:25)
[2019-09-30] MEDS: SOLU-MEDROL IV SCH (04:52)
[2019-09-30 06:49] LABS: HEMATOCRIT 25.9 % (37.0-47.0); HEMOGLOBIN 7.7 g/dL (12.0-16.0); LYMPH# 0.25 X1000 (1.2-3.4); LYMPH% 3.5 % (20.5-51.1); MCH 25.8 PG (27-31); MCHC 29.7 g/dL (33-37); MCV 86.6 FL (81-99); MONO# 0.39 X1000 (0.11-0.59); MONO% 5.5 % (1.7-9.3); NEUT# 6.48 X1000 (1.4-6.5); PLT 359 X1000 (130-400); RBC 2.99 XMIL (4.2-5.4); RDW 15.8 % (11.5-14.5); WBC 7.12 X1000 (4.8-10.8)
[2019-09-30 07:46] LABS: CALCIUM 8.7 mg/dL (8.8-10.2); CREATININE 1.6 mg/dL (0.5-0.9); POTASSIUM 4.2 mmol/L (3.5-5.1)
[2019-09-30] MEDS: PRILOSEC PO SCH (08:20)
[2019-09-30] MEDS: ELIQUIS PO SCH ×2 (08:20→20:21)
[2019-09-30] MEDS: ZITHROMAX PO SCH (08:20)
[2019-09-30] MEDS: TOPROL XL PO SCH (10:26)
[2019-09-30] MEDS: CARDIZEM CD PO SCH (10:26)
--- NOTE | 2019-09-30 10:46 | Diag Imaging Result Doc PS360 ---
EXAM: CHEST-2 VIEWS 09/30/2019 HISTORY: pneumonia TECHNIQUE: PA and lateral chest COMMENT: There is cardiomegaly. There are bilateral pleural effusions. There is some hazy opacity in both lung bases consistent with pulmonary edema. IMPRESSION: Cardiomegaly and pulmonary edema with pleural effusions. Electronically signed by Domo Bartholomew 09/30/2019 10:44 AM
--- NOTE | 2019-09-30 13:28 | Diag Imaging Result Doc PS360 ---
CT THORAX W/O CONTRAST - 09/30/2019 INDICATION: pulmonary edema COMPARISON: 09/30/2019, 07/10/2019 FINDINGS: There is significant cardiomegaly. There is moderate calcification of the mitral valve annulus. There is a small to moderate right pleural effusion. There is diffuse hazy groundglass interstitial opacity compatible with pulmonary edema. There is advanced COPD. There are some patchy atelectasis at both lung bases. Upper abdominal images are grossly normal. There are advanced degenerative changes of the spine. No acute or suspicious bony lesion. IMPRESSION: COPD. Pulmonary edema. Cardiomegaly. Right pleural effusion. This exam was performed using automated exposure control, adjustment of mA or kV according to patient size, and/or use of iterative reconstruction technique Electronically signed by Facundo Wheeler 09/30/2019 1:26 PM
--- NOTE | 2019-09-30 13:33 | EKG Report ---
Test Performed on : 09/30/2019 1:22:08 PM Test Reason : shortness of breath Blood Pressure : / mmHG Vent. Rate : 085 BPM Atrial Rate : 098 BPM P-R Int : 000 ms QRS Dur : 130 ms QT Int : 398 ms P-R-T Axes : 000 043 007 degrees QTc Int : 473 ms Atrial fibrillation. Right bundle branch block Abnormal ECG When compared with ECG of 27-SEP-2019 16:35, T wave inversion less evident in Inferior leads T wave inversion less evident in Anterior leads Confirmed by Zohra Hawley MD ([id number]) on 09/30/2019 6:26:36 PM
[2019-09-30] MEDS: ROCEPHIN 1 GM in NS 50 ML IV SCH (13:40)
[2019-09-30] MEDS ORDERED: LASIX IV ONE (15:39)
[2019-09-30] MEDS ORDERED: NITROGLYCERIN TOP ONE (15:51)
[2019-09-30] MEDS: LASIX IV SCH (17:42)
[2019-09-30] MEDS: MIRAPEX PO SCH (17:47)
[2019-09-30 18:00] LABS: URINE SOURCE CATH
[2019-09-30 18:04] LABS: BILIRUBIN URINE NEGATIVE (NEGATIVE); BLOOD URINE NEGATIVE (NEGATIVE); COLOR YELLOW; GLUCOSE URINE NEGATIVE (NEGATIVE); KETONE URINE NEGATIVE (NEGATIVE); LEUKOCYTES URINE NEGATIVE (NEGATIVE); NITRITE URINE NEGATIVE (NEGATIVE); PH URINE 5.5; PROTEIN URINE TRACE mg/dL (NEGATIVE); SP GRAVITY URINE 1.015; TURBIDITY URINE CLEAR (CLEAR); UROBILINOGEN URINE NORMAL (NORMAL)
[2019-09-30 18:05] LABS: UR EPITHELIAL CELLS <10 /HPF (<10); URINE BACTERIA NEGATIVE /HPF; URINE RBC <10 /HPF (<10); URINE WBC <10 /HPF (<10)
[2019-09-30 18:25] LABS: UR CREAT RANDOM 72.2 mg/dL (11-20); UR PROT RANDOM 17.3 mg/dL; UR SODIUM < 10 mmoll; UR UREA NITROGEN RANDOM 479 mg/dL
--- NOTE | 2019-09-30 19:44 | PROGRESS NOTE ---
DATE: 09/30/2019 SUBJECTIVE: The patient states that she feels better today. No acute events noted overnight. OBJECTIVE: Vital Signs: Temperature 97.4 degrees, blood pressure 147/85, heart rate 96, respirations 20, O2 saturation is 97% on 4 L nasal cannula. Intake 840, output 1.4 L. General: This is a chronically ill-appearing female, sitting at the edge of the bed in no acute distress. Heart: S1, S2 normal. Irregularly irregular rhythm. Lungs: Diminished breath sounds bilaterally. No wheezing. No rales. Abdomen: Positive bowel sounds. Soft, obese, nontender. Extremities: Chronic venous stasis, 1+ edema bilaterally. Neurologic: The patient is alert and oriented x3. LABORATORY DATA: White blood cell count 7.1, hemoglobin 7.7, hematocrit 25, platelets 359,000. Sodium 138, potassium 4.2, chloride 93, CO2 of 28, BUN 39, creatinine 1.6, glucose 153. ProBNP 4860. ASSESSMENT AND PLAN: 1. Acute on chronic hypoxemic respiratory failure. Continue to treat the patient's underlying heart failure. 2. Acute diastolic congestive heart failure exacerbation. Cardiology has been consulted for further recommendations. The patient has been receiving diuretic therapy for the last 3 days. 3. Acute kidney injury. Multifactorial. The patient received IV contrast on admission and is receiving diuretic therapy. We will check urine studies. 4. Atrial fibrillation. The patient is rate controlled. Continue on Eliquis. 5. Anemia. We will check iron studies. 6. Bilateral pleural effusions with acute pulmonary edema. CT of the chest done today, shows no improvement despite diuretic therapy. We will defer to the revenue accountant regarding diuretic treatment. 7. Urinary tract infection secondary to Escherichia coli. Resolved. 8. 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 Aware. 9. Obesity. Aware. 10. Chronic obstructive pulmonary disease. Stable. Continue with bronchodilator therapy. 11. 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 Continue on Eliquis. 12. AUBREY. Aware. Continue to use CPAP. 13. Disposition. Continue with physical therapy. Once the patient is medically stable, she will be discharged home. cc: Shanda Staley MD [facility] [place] DIVISIONElizabeth
[2019-09-30] MEDS: SINGULAIR PO SCH (20:21)
[2019-09-30] MEDS: TYLENOL PO PRN (20:22)
--- NOTE | 2019-09-30 20:32 | CONSULTATION ---
DATE OF CONSULTATION: 09/30/2019 IMPRESSION: 1. Acute on chronic congestive heart failure with preserved left ventricular ejection fraction. Suspect predominantly right-sided heart failure in setting of obesity and obstructive sleep apnea as well as significant chronic obstructive pulmonary disease. 2. Acute on chronic renal dysfunction. Suspect cardiorenal syndrome likely. She does not appear to have diuresed very much and appears very volume overloaded clinically. 3. Chronic obstructive pulmonary disease. 4. Obesity. 5. Obstructive sleep apnea. 6. Atrial fibrillation. Comma persistent. 7. Hypertensive cardiovascular disease with left ventricular diastolic dysfunction. 8. Status post recent partial colectomy for tubulovillous adenoma. 9. 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 Patient has been on anticoagulation with Eliquis. RECOMMENDATIONS: 1. Continue to diuresis with IV Lasix and monitor urine output closely. We will go ahead and place Awad catheter. 2. Patient encouraged to maintain compliance with CPAP during her hospital stay. She has not been using it for the past several nights. 3. Conservative cardiovascular management overall history. 4. Continue anticoagulation. Given present renal dysfunction, adjust Eliquis to 2.5 mg twice daily. May consider going to daily Lovenox. 5. Conservative cardiovascular management overall. HISTORY: This is an 84-year-old white female with past history of chronic congestive heart failure with preserved left ventricular ejection fraction, COPD, obstructive sleep apnea, obesity, hypertensive cardiovascular disease with left ventricular diastolic dysfunction, and persistent atrial fibrillation was admitted several days ago through the emergency room with shortness of breath and cough. She has had some vague abdominal discomfort as well. She was found to have evidence of acute on chronic congestive heart failure. She has been on Lasix 40 mg IV q.12 until the last dose this morning. Diuretic response appears to have been modest based on recorded intake and output. Her creatinine progressively increased. She continued to manifest significant evidence of volume overload. Cardiology is consulted. The patient denies any angina. There has been no orthopnea. She relates getting progressively short of breath and having increased peripheral swelling. She has actually had chronic lower extremity edema and refers to this as "lymphedema." She has not used her CPAP for the last several nights even though it is at the bedside. She no longer smokes. PAST MEDICAL HISTORY: 1. Congestive heart failure with preserved left ventricular ejection fraction. 2. Chronic obstructive pulmonary disease. 3. Obesity. 4. Obstructive sleep apnea. 5. Persistent atrial fibrillation. 6. Hypertensive cardiovascular disease with left ventricular diastolic dysfunction. PAST SURGICAL HISTORY: Includes right colectomy for tubulovillous adenoma, left carpal tunnel surgery, right ear surgery unspecified and cataract surgery. ALLERGIES: She is allergic or intolerant to penicillin and sulfa. MEDICATIONS PRIOR TO ADMISSION: As listed. SOCIAL HISTORY: She no longer smokes cigarettes. She does not use alcohol. FAMILY HISTORY: Negative for premature coronary disease. REVIEW OF SYSTEMS: Pulmonary: Noteworthy for dyspnea, as well as some nonproductive cough. Gastrointestinal: Noncontributory. Constitutional: Noncontributory. Remainder of review of systems negative/noncontributory with 14 total systems reviewed. PHYSICAL EXAMINATION: General: This is a obese, elderly white female, on supplemental oxygen. She appears to be in mild respiratory stress and uses some excess for muscles of respiration. Vital signs: Blood pressure 147/85, heart rate 96, oxygen saturation 97% on nasal cannula oxygen. HEENT: Extraocular movements intact. Mucous membranes are moist. Neck: Supple. There is significant jugular venous distention consistent with markedly elevated central venous pressure. Chest: Auscultation of the chest reveals diminished breath sounds at bases bilaterally. Cardiac Exam: Reveals an irregular rate and rhythm without appreciable murmur or gallop. Abdomen: Soft. Bowel sounds are normal. Extremities: Demonstrate 3+ pitting edema. Neurologic: Reveals her to be alert and fully oriented. Speech is fluent. She moves all 4 extremities equally well. Skin: Warm and dry. Psychiatric: Reveals mood to be appropriate. PERTINENT DATA: Twelve lead EKG demonstrates atrial fibrillation and right bundle branch block. LABORATORY DATA: From today, includes white blood cell count of , hematocrit 25.9, hemoglobin 7.7, platelet count 359,000. Sodium 138, potassium 4.2, chloride 93, carbon dioxide 28, BUN 39, creatinine 1.6. Glucose 153, pro B-natriuretic peptide level 4960. cc: Pradeep Lea MD [facility]
[2019-10-01] MEDS: DUONEB (A & A) INH SCH ×6 (03:08→23:08)
--- NOTE | 2019-10-01 04:17 | NEPHROLOGY CONSULTATION ---
DATE: 09/30/2019 REASON FOR CONSULTATION: Volume overload and acute kidney injury. HISTORY OF PRESENT ILLNESS: Ms. Kaminski is an 84-year-old white female who we met back in June and July of 2019, during which time she had an episode of ischemic acute tubular necrosis in the context of deep venous thromboses involving the right hepatic vein as well as the superior mesenteric vein. Her acute kidney injury resolved entirely, and creatinine was 0.9 on follow up. Urinalysis as of 09/26/2019 was positive for white cells and nitrites, but no blood or protein, and creatinine was 0.9. She was admitted to the hospital on 09/26/2019 with shortness of breath that had worsened over a 3 day period of time. She has chronic lower extremity edema which she attributes to have edema and for which she goes to a physical therapy lymphedema clinic. Her shortness of breath has been progressively worsening, and she had a cough with no sputum. No chills or fevers. Because of her worsening symptoms she sought attention in the emergency room where her initial blood pressure was 149/102, with a heart rate of 92, and an O2 saturation of 96% on 4 L. Her initial chest x-ray demonstrated pulmonary edema with small bilateral effusions and possible pneumonia. Further evaluation included an abdominal CT angiography which showed multiple noncritical arterial stenoses including renal arteriosclerosis ranging from 50% to 70%. In this context, she was treated with diuretics and has been negative 3.8 L. Her creatinine was 0.9 on presentation, and has risen progressively to 1.6, and BUN has risen from 21 to 39. Despite this rise in her BUN and creatinine, she remains symptomatic with swelling and shortness of breath. She underwent a CT of the chest today in order to more thoroughly evaluate her findings. This study demonstrates evidence of COPD with emphysema, but also significant interstitial ground-glass appearance consistent with pulmonary edema. Additionally, Radiology reports cardiomegaly and right pleural effusion. We were asked to assist with her management. EF 70%. PAST MEDICAL HISTORY: As above. Also obesity, AUBREY, atrial fibrillation, hypertension. HOME MEDICATIONS: Include albuterol, Eliquis, diltiazem, Nexium, furosemide, metoprolol, Singulair, Mirapex, tizanidine. ALLERGIES: Sulfa, penicillin. SOCIAL HISTORY: A former smoker, none currently. No alcohol. FAMILY HISTORY: Noncontributory. REVIEW OF SYSTEMS: Noncontributory. PHYSICAL EXAMINATION: Vital Signs: Blood pressure is 120/67, heart rate is 65, respirations 20. Afebrile. General: She is an obese white female sitting up in no acute distress. Skin: Warm and dry with bruises and thinning. HEENT: Conjunctivae are pink. Pupils are equal. Oropharynx is dry. Normal tongue. Neck: Supple. Trachea is midline. Neck vein distention is present. Heart: PMI is nonpalpable. Irregular rhythm, but rate controlled. Lungs: Have equal breath sounds with a few scattered crackles. Abdomen: Obese, soft, nontender. Bowel sounds present. No organomegaly or masses. Extremities: 3+ edema. No clubbing or cyanosis. IMPRESSION AND PLAN: Acute kidney injury. Urine sodium collected today less than 10. UA is bland. No significant urine protein. Suggestive of prerenal state. This is likely related to decompensated heart failure, diastolic presumably. I will give a single large dose of Lasix this afternoon, 100 mg. Observe her response in terms of her volume status and repeated laboratory data in the morning. I have reviewed her medications, and no changes are required. I did also add nitroglycerin 1 inch q.6 hours. cc: Dmitry Hernandez MD
[2019-10-01] MEDS: PRILOSEC PO SCH (06:38)
[2019-10-01 07:09] LABS: RETIC% 2.04 % (0.8-2.1); RETIC-HE 21.5 PG (28.2-36.6)
[2019-10-01 07:13] LABS: HEMOGLOBIN 7.9 g/dL (12.0-16.0); MCH 25.7 PG (27-31); MCHC 29.3 g/dL (33-37); MCV 87.9 FL (81-99); MPV 9.1 FL (7.4-10.4); RBC 3.07 XMIL (4.2-5.4); RDW 15.9 % (11.5-14.5); WBC 6.11 X1000 (4.8-10.8)
[2019-10-01 07:45] LABS: ALBUMIN 2.9 g/dL (3.5-5.0); CALCIUM 8.5 mg/dL (8.8-10.2); CREATININE 1.7 mg/dL (0.5-0.9); PHOSPHORUS 5.3 mg/dL (2.7-4.5); POTASSIUM 4.3 mmol/L (3.5-5.1)
[2019-10-01 07:49] LABS: CALCIUM 8.5 mg/dL (8.8-10.2); CREATININE 1.8 mg/dL (0.5-0.9); IRON SATURATION 9 %; POTASSIUM 4.4 mmol/L (3.5-5.1); TIBC 288 ug/dL; TOTAL IRON 26 ug/dL (49-151); UNBOUND IRON 262 ug/dL (112-346)
[2019-10-01 08:05] LABS: FERRITIN 121 ng/mL (13-150)
[2019-10-01] MEDS ORDERED: LASIX IV ONE ×2 (09:00→17:00)
[2019-10-01] MEDS: TOPROL XL PO SCH (10:23)
[2019-10-01] MEDS: CARDIZEM CD PO SCH (10:23)
[2019-10-01] MEDS: ZITHROMAX PO SCH (10:26)
[2019-10-01] MEDS: ELIQUIS PO SCH ×2 (10:26→20:53)
[2019-10-01] MEDS: TYLENOL PO PRN ×2 (10:26→23:03)
[2019-10-01] MEDS: ROCEPHIN 1 GM in NS 50 ML IV SCH (13:21)
--- NOTE | 2019-10-01 13:28 | PROGRESS NOTE ---
DATE: 10/01/2019 SUBJECTIVE: Patient denies shortness of breath on supplemental oxygen per nasal cannula. There has been no chest pain. She did not wear her CPAP very long last night. She has had fairly inconsistent compliance with her CPAP of late. OBJECTIVE: Vital Signs: Blood pressure 143/80, heart rate 93, oxygen saturation 98% on nasal cannula oxygen. Neck: Jugular venous distention is present consistent with elevated central venous pressure. Chest: Auscultation of the chest reveals diminished breath sounds at bases bilaterally. Cardiac exam: Reveals a regular rate and rhythm without appreciable murmur or gallop. Extremities: Demonstrate 1+ to 2+ pretibial edema. LABORATORY DATA: Includes a white blood cell count 6.11, hematocrit. 27.0, hemoglobin 7.9 platelet count 281. Sodium 140, potassium 4.4, chloride 96, carbon dioxide 30. BUN 49, creatinine 1.8, glucose 145, albumin 2.9. IMPRESSION: 1. Acute on chronic congestive heart failure with preserved left ventricular ejection fraction. Suspect predominantly right-sided heart failure in a setting of obesity and obstructive sleep apnea, as well as significant chronic obstructive pulmonary disease. 2. Acute on chronic renal dysfunction. Suspect cardiorenal syndrome likely present. 3. Chronic obstructive pulmonary disease. 4. Obstructive sleep apnea. 5. Obesity. 6. Atrial fibrillation. 7. Hypertensive cardiovascular disease with left ventricular diastolic dysfunction. 8. Status post recent partial colectomy for tubulovillous adenoma. 9. 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 Patient continues on anticoagulation with Eliquis. RECOMMENDATIONS: 1. Continue to diurese with IV Lasix and monitor urine output. 2. Continue to monitor renal function closely. 3. Try and improve compliance with CPAP. 4. Conservative cardiovascular management overall. 5. Continue anticoagulation with Eliquis dosed according to renal function. 6. Conservative cardiovascular management overall. cc: Pradeep Lea MD
--- NOTE | 2019-10-01 13:47 | PROVIDER PROGRESS NOTE ---
Progress Note Subjective: She voices feeling better but remains short of breath. Objective: temperature 98.3, pulse 75 respirations 16, blood pressure 101/49, 02 sat 97% on 4 L nasal cannula. General: chronically ill White female lying in bed in no acute distress. HEENT: normocephalic, atraumatic, pupils equal and reactive, mucous membranes moist. Skin: warm and dry. Multiple bruises. Neck: supple, positive JVD Cardiovascular: S1S2, irregular rate and rhythm. No murmur or gallop. Respiratory: audible expiratory wheezing with diminished bases anteriorly. Abdomen: soft, obese, nontender, nondistended. Umbilical hernia noted. Bowel sounds present. : not inspected, paez in place Extremities: no clubbing or cyanosis. 2+ edema to BLE. Neurological: alert and oriented to person place and time. Labs: WBC 6.11, hemoglobin 7.9, hematocrit 27.0, platelet count 281, sodium 140, potassium 4.4, chloride 96, carbon dioxide 30, BUN 49, creatinine 1.8, albumin 2.9. Intake 1600, output 2475. Impression: Acute kidney injury. Likely due to decompensated heart failure with fluid volume overload. Stable Creatinine and BUN today. 2475ml output after a single 100mg lasix dose. Lasix 80mg orders by cardiology. Blood pressure. Stable. Fluid volume. Expanded. Lasix 80mg x 1 ordered by cardiology. Anemia. Low, but does not meet transfusion criteria. Electrolytes and acid base balance. Stable. Nutrition. Adequate. Ambulation. PT ordered. Medication review. Eliquis started.
[2019-10-01] MEDS: NITROGLYCERIN TOP SCH ×2 (15:46→20:53)
[2019-10-01] MEDS: MIRAPEX PO SCH (18:28)
[2019-10-01] MEDS: COLACE PO SCH (20:53)
[2019-10-01] MEDS: SINGULAIR PO SCH (20:53)
[2019-10-01] MEDS: ICAR-C PO SCH (20:54)
[2019-10-01] MEDS: MIRALAX PO SCH (20:54)
[2019-10-01] MEDS: ZANAFLEX PO PRN (23:10)
[2019-10-02] MEDS: NITROGLYCERIN TOP SCH ×4 (02:40→20:47)
[2019-10-02] MEDS: DUONEB (A & A) INH SCH ×6 (03:37→23:00)
--- NOTE | 2019-10-02 04:14 | PROGRESS NOTE ---
DATE: 10/01/2019 SUBJECTIVE: The patient is sitting at the edge of the bed. She states that she feels okay today. She does not have any complaints. OBJECTIVE: Vital Signs: Temperature 97.6 degrees, blood pressure 157/93, heart rate 98, respirations 19, O2 saturations 100% on 3 L nasal cannula. Intake 1.6 L. Output 2.4 L. General: This is a morbidly obese female, sitting at the edge of the bed in no acute distress. Heart: S1, S2 normal. Irregularly irregular rhythm. Lungs: Diminished breath sounds bilaterally. No wheezing. No rales. Abdomen: Positive bowel sounds. Soft, obese, nontender, nondistended. Extremities: 3+ edema to both lower extremities. Neurologic: The patient is hard of hearing, but alert and oriented x3. LABS: White blood cell count is 6.1, hemoglobin 7.9, hematocrit 27, platelets 281,000. Sodium 140, potassium 4.4, chloride 96, CO2 30, BUN 49, creatinine 1.8, glucose 145, phos 5.3, magnesium 2. ASSESSMENT AND PLAN: 1. Acute on chronic hypoxemic respiratory failure. Continue to treat the underlying heart failure. 2. Acute diastolic congestive heart failure exacerbation. Continue with diuretic therapy under the direction of the geologic technician. 3. Acute kidney injury. Continue to monitor closely while receiving diuretic therapy. Nephrology is following. 4. Atrial fibrillation. The patient is rate controlled. Continue on Eliquis. 5. Iron deficiency anemia. Will start Icar-C. 6. Folate deficiency. We will start the patient on folic acid. 7. Urinary tract infection secondary to Escherichia coli. Resolved. 8. 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 Aware. 9. 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 Continue on Eliquis. 10. Chronic obstructive pulmonary disease. Stable. 11. Obstructive sleep apnea. Continue with CPAP at night. 12. Constipation. We will start the patient on MiraLAX and Colace. 13. Continue with physical therapy. cc: Shanda Staley MD [facility]
[2019-10-02] MEDS: PRILOSEC PO SCH (06:10)
[2019-10-02 06:33] LABS: HEMATOCRIT 27.4 % (37.0-47.0); HEMOGLOBIN 8.2 g/dL (12.0-16.0); MCH 26.2 PG (27-31); MCHC 29.9 g/dL (33-37); MCV 87.5 FL (81-99); MPV 8.7 FL (7.4-10.4); RBC 3.13 XMIL (4.2-5.4); RDW 15.6 % (11.5-14.5); WBC 8.8 X1000 (4.8-10.8)
--- NOTE | 2019-10-02 07:00 | Diag Imaging Result Doc PS360 ---
EXAM: CHEST-PORTABLE HISTORY: dyspnea TECHNIQUE: Single view COMPARISON: 09/30/2019 FINDINGS: The lungs are well expanded. The heart is enlarged. There is vascular distention as well as small bilateral pleural effusions. These are slightly more prominent. There is also basilar atelectasis. IMPRESSION: Mild interval worsening Electronically signed by Alberto Amezcua 10/02/2019 6:58 AM
[2019-10-02 07:08] LABS: ALBUMIN 3.2 g/dL (3.5-5.0); CALCIUM 8.2 mg/dL (8.8-10.2); CREATININE 1.5 mg/dL (0.5-0.9); PHOSPHORUS 4.4 mg/dL (2.7-4.5); POTASSIUM 3.9 mmol/L (3.5-5.1)
[2019-10-02] MEDS: COLACE PO SCH ×2 (08:18→20:48)
[2019-10-02] MEDS: ICAR-C PO SCH ×2 (08:18→20:47)
[2019-10-02] MEDS: ELIQUIS PO SCH ×2 (08:18→20:47)
[2019-10-02] MEDS: CARDIZEM CD PO SCH (08:18)
[2019-10-02] MEDS: LASIX IV SCH (08:19)
[2019-10-02] MEDS: ZITHROMAX PO SCH (08:19)
[2019-10-02] MEDS: TOPROL XL PO SCH (08:19)
[2019-10-02] MEDS: MIRALAX PO SCH ×2 (08:20→20:47)
[2019-10-02] MEDS: TYLENOL PO PRN ×2 (11:31→20:09)
[2019-10-02] MEDS ORDERED: LACTULOSE PO ONE (14:59)
[2019-10-02] MEDS: ROCEPHIN 1 GM in NS 50 ML IV SCH (15:04)
--- NOTE | 2019-10-02 15:29 | NEPHROLOGY PROGRESS NOTE ---
DATE: 10/02/2019 SUBJECTIVE: She states she is improved. She is somewhat short of breath, but she has just been in and out of the bed, up to the bedside commode. OBJECTIVE: Vital Signs: Blood pressure 153/100, heart rate 97, respiration 18, afebrile. Intake 1 L, output 4.5 L. General: In no acute distress. Skin: Warm and dry. Neck: Veins remain distended. Trachea is midline. Heart: Regular with a gallop. Lungs: Equal. Increased respiratory rate. A few crackles. Abdomen: Soft, obese, nontender, bowel sounds present. Extremities: 2 to 3+ edema. No clubbing or cyanosis. IMPRESSION: Acute kidney injury. Creatinine is modestly better today with improved volume status. I believe this confirms our diagnosis of cardiorenal/decompensated heart failure. We will continue furosemide 80 mg daily, and observe her response over the weekend. cc: Dmitry Hernandez MD
--- NOTE | 2019-10-02 18:02 | PROGRESS NOTE ---
DATE: 10/02/2019 SUBJECTIVE: The patient is sitting at the edge of the bed. She is about to get up and work with physical therapy. No acute events noted overnight. OBJECTIVE: Vital Signs: Temperature 97.7, blood pressure 147/85, heart rate 97, respirations 19, O2 saturation 100% on 3 L nasal cannula. General: This is a [id number] elderly female sitting at the edge of the bed in no acute distress. HEENT: Normocephalic, atraumatic. Oral mucosa is moist. Trachea is midline. Heart: S1, S2 normal. Regular rate and rhythm. Lungs: Diminished breath sounds bilaterally. No wheezing. No rales. Abdomen: Positive bowel sounds. Soft, nontender, nondistended. Extremities: There is 2+ edema bilaterally. Neurologic: The patient is alert and oriented x3. LABS: White blood cell count 8, hemoglobin 8.2, hematocrit 27, platelets 301. Sodium 143, potassium 3.9, chloride 96. CO2 is 35, BUN 51, creatinine 1.5, glucose 84. Chest x-ray: Mild interval worsening. ASSESSMENT AND PLAN: 1. Acute on chronic hypoxemic respiratory failure. Continue to treat the underlying issue. 2. Acute diastolic congestive heart failure exacerbation. Continue with management as directed by the cookee. 3. Acute kidney injury. Slowly improving. Nephrology is following. 4. Atrial fibrillation. The patient is rate controlled. Continue on Eliquis. 5. Iron deficiency anemia. Continue on Icar C. 6. Urinary tract infection secondary to Escherichia coli. Resolved. 7. Folate deficiency. The patient has been started on folic acid. 8. 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 Continue on Eliquis. 9. Atherosclerosis of the femoral veins with the narrowing of 40%. Aware. 10. Obstructive sleep apnea. Continue with CPAP at night. 11. Chronic obstructive pulmonary disease. Continue with bronchodilator therapy and supplemental oxygen. 12. Constipation. The patient has not had a bowel movement for several days. Continue on MiraLAX and Colace. Will also add Dulcolax. 13. Continue with physical therapy. cc: Shanda Staley MD [facility]
[2019-10-02] MEDS: MIRAPEX PO SCH (18:12)
[2019-10-02] MEDS: SINGULAIR PO SCH (20:47)
[2019-10-02] MEDS: LACTULOSE PO SCH (20:49)
[2019-10-02] MEDS: DULCOLAX PR SCH (20:49)
[2019-10-02] MEDS: ZANAFLEX PO PRN (22:46)
[2019-10-03] MEDS: NITROGLYCERIN TOP SCH ×4 (02:01→21:19)
[2019-10-03] MEDS: DUONEB (A & A) INH SCH ×6 (03:00→22:44)
[2019-10-03] MEDS: PRILOSEC PO SCH (06:36)
[2019-10-03] MEDS: TYLENOL PO PRN ×3 (06:36→21:13)
[2019-10-03 06:48] LABS: HEMATOCRIT 32.1 % (37.0-47.0); HEMOGLOBIN 9.3 g/dL (12.0-16.0); MCH 25.1 PG (27-31); MCV 86.5 FL (81-99); MPV 8.8 FL (7.4-10.4); RBC 3.71 XMIL (4.2-5.4); RDW 15.8 % (11.5-14.5); WBC 8.64 X1000 (4.8-10.8)
[2019-10-03 07:17] LABS: ALBUMIN 3.1 g/dL (3.5-5.0); CALCIUM 8.6 mg/dL (8.8-10.2); CREATININE 1.2 mg/dL (0.5-0.9); PHOSPHORUS 3.6 mg/dL (2.7-4.5); POTASSIUM 3.6 mmol/L (3.5-5.1)
[2019-10-03] MEDS: ZITHROMAX PO SCH (10:08)
[2019-10-03] MEDS: ELIQUIS PO SCH ×2 (10:08→21:20)
[2019-10-03] MEDS: ICAR-C PO SCH ×2 (10:08→21:20)
[2019-10-03] MEDS: LACTULOSE PO SCH ×2 (10:08→20:45)
[2019-10-03] MEDS: DULCOLAX PR SCH ×3 (10:09→20:44)
[2019-10-03] MEDS: COLACE PO SCH ×2 (10:09→21:19)
[2019-10-03] MEDS: TOPROL XL PO SCH (10:09)
[2019-10-03] MEDS: MIRALAX PO SCH ×2 (10:09→20:44)
[2019-10-03] MEDS: LASIX IV SCH (10:09)
[2019-10-03] MEDS: CARDIZEM CD PO SCH (10:12)
[2019-10-03] MEDS: ROCEPHIN 1 GM in NS 50 ML IV SCH (12:04)
[2019-10-03] MEDS: ZANAFLEX PO PRN ×2 (12:09→16:02)
[2019-10-03] MEDS: PERCOCET-5 PO PRN (14:56)
--- NOTE | 2019-10-03 15:32 | PROGRESS NOTE ---
DATE: 10/03/2019 SUBJECTIVE: The patient is resting in bed. She states that she wants to go home. She states that she does not feel as short of breath as she did last week. OBJECTIVE: Vital Signs: Temperature 97.7 degrees, blood pressure 109/61, heart rate 93, respirations 12, O2 saturation 92% on 3 L nasal cannula, intake is 635, output 2.1 L. General: This is a elderly female lying in bed in no acute distress. Heart: S1, S2 normal. Lungs: Diminished breath sounds bilaterally. Abdomen: Positive bowel sounds. Soft, nontender, nondistended. Extremities: 2+ edema to the lower extremities. Neuro: The patient is alert and oriented x3. LABS: White blood cell count 8.6, hemoglobin 9.3, hematocrit 32. Platelets 343,000. BUN 39, creatinine 1.2, sodium 142, potassium 3.6. ASSESSMENT AND PLAN: 1. Acute on chronic hypoxemic respiratory failure. Stable. 2. Acute diastolic congestive heart failure exacerbation. Continue with the current treatment regimen as directed by the dietary clerk. 3. Acute kidney injury. Slowly improving. 4. Atrial fibrillation. The patient is rate controlled. Continue on Eliquis. 5. Iron deficiency anemia. Continue with iron replacement therapy. 6. Folate deficiency. Continue with folic acid replacement. 7. Urinary tract infection secondary to Escherichia coli. Resolved. 8. 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 Continue on Eliquis. 9. 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 Aware. 10. Obstructive sleep apnea. Continue on CPAP at night. 11. Chronic obstructive pulmonary disease. Continue bronchodilator therapy and supplemental oxygen. 12. Constipation. Improved, continue on the current laxative regimen. 13. Continue with physical therapy. 14. Disposition. The patient can be discharged home once cleared by the dietary clerk. cc: Shanda Staley MD
[2019-10-03] MEDS ORDERED: XANAX PO ONE (16:20)
[2019-10-03] MEDS: MIRAPEX PO SCH (18:07)
[2019-10-03] MEDS: SINGULAIR PO SCH (21:19)
[2019-10-04] MEDS: NITROGLYCERIN TOP SCH ×4 (02:06→22:41)
[2019-10-04] MEDS: DUONEB (A & A) INH SCH ×6 (03:19→22:31)
[2019-10-04] MEDS: PRILOSEC PO SCH (06:41)
[2019-10-04] MEDS: TYLENOL PO PRN ×2 (06:45→14:28)
[2019-10-04 06:51] LABS: HEMOGLOBIN 8.5 g/dL (12.0-16.0); MCV 86.4 FL (81-99); RDW 15.7 % (11.5-14.5)
[2019-10-04 07:00] LABS: HEMATOCRIT 29.3 % (37.0-47.0); MCH 25.1 PG (27-31); RBC 3.39 XMIL (4.2-5.4); WBC 8.84 X1000 (4.8-10.8)
[2019-10-04 07:41] LABS: ALBUMIN 2.9 g/dL (3.5-5.0); CALCIUM 8.5 mg/dL (8.8-10.2); POTASSIUM 3.3 mmol/L (3.5-5.1)
--- NOTE | 2019-10-04 07:46 | Diag Imaging Result Doc PS360 ---
EXAM: CHEST-1 VIEW - 10/04/2019 HISTORY: pulmonary edema TECHNIQUE: One view chest COMPARISON: 10/02/2019 FINDINGS: There is stable cardiomegaly. There is been mild decrease in vascular congestion. There are basilar atelectasis or small bilateral pleural effusions similar to prior. There is no evidence of pneumothorax. IMPRESSION: Mild decrease in vascular congestion. Electronically signed by Deni Lynch 10/04/2019 7:44 AM
[2019-10-04] MEDS: ICAR-C PO SCH ×2 (08:46→22:11)
[2019-10-04] MEDS: ZITHROMAX PO SCH (08:46)
[2019-10-04] MEDS: COLACE PO SCH ×2 (08:47→22:41)
[2019-10-04] MEDS: CARDIZEM CD PO SCH (08:47)
[2019-10-04] MEDS: TOPROL XL PO SCH (08:47)
[2019-10-04] MEDS: LASIX IV SCH (08:47)
[2019-10-04] MEDS: ELIQUIS PO SCH ×2 (08:48→22:11)
[2019-10-04] MEDS: DULCOLAX PR SCH ×2 (08:48→22:10)
[2019-10-04] MEDS: MIRALAX PO SCH ×2 (08:49→22:11)
[2019-10-04] MEDS: LACTULOSE PO SCH ×2 (08:50→22:10)
[2019-10-04] MEDS ORDERED: KLOR-CON PO ONE (09:23)
[2019-10-04] MEDS: ROCEPHIN 1 GM in NS 50 ML IV SCH (12:24)
[2019-10-04] MEDS: ZANAFLEX PO PRN (14:28)
[2019-10-04] MEDS: MIRAPEX PO SCH (17:53)
--- NOTE | 2019-10-04 18:02 | PROGRESS NOTE ---
DATE: 10/04/2019 SUBJECTIVE: The patient is resting comfortably in bed. She states that she feels much better today. No acute events noted overnight. OBJECTIVE: Vital Signs: Temperature 98.7 degrees, blood pressure 107/63, heart rate 86, respirations 16, O2 saturation is 98% on 3 L nasal cannula. Intake 440. Output 2.7 L. General: This is a morbidly obese female lying in bed, in no acute distress. Heart: S1, S2 normal. Regular rate. Lungs: Diminished breath sounds at the bases. No wheezing. No rales. No rhonchi. Abdomen: Positive bowel sounds. Soft, nontender, nondistended. Extremities: Have 1+ edema. Neurologic: The patient is alert and oriented x3. LABS: White blood cell count 8.8, hemoglobin 8.5, hematocrit 29, platelets 307,000. Sodium 139, potassium 3.3, chloride 92, CO2 36, BUN 28, creatinine 1, glucose 94. Chest x-ray shows decrease in the vascular congestion. ASSESSMENT AND PLAN: 1. Acute on chronic hypoxemic respiratory failure. Improved. 2. Acute diastolic congestive heart failure exacerbation. The patient has responded well to diuresis. Continue with the current regimen as directed by the instrument maker and repairer. 3. Acute kidney injury. Improved. 4. Atrial fibrillation. The patient is rate controlled. Continue on Eliquis. 5. Iron deficiency anemia. Continue with iron replacement therapy. 6. Folate deficiency. Continue with folic acid replacement. 7. Urinary tract infection secondary to Escherichia coli. Resolved. 8. 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 Continue on Eliquis. 9. 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 Aware. 10. Chronic obstructive pulmonary disease. Stable. 11. Obstructive sleep apnea. Continue on CPAP at night. 12. Continue with physical therapy. 13. Disposition. The patient can be discharged home once cleared by the instrument maker and repairer. cc: Shanda Staley MD
[2019-10-04] MEDS: PERCOCET-5 PO PRN (22:11)
[2019-10-04] MEDS: SINGULAIR PO SCH (22:11)
[2019-10-05] MEDS: DUONEB (A & A) INH SCH ×6 (03:12→23:14)
[2019-10-05] MEDS: NITROGLYCERIN TOP SCH ×4 (03:35→20:37)
[2019-10-05] MEDS: PRILOSEC PO SCH ×2 (05:41→06:06)
[2019-10-05 06:57] LABS: HEMATOCRIT 28.9 % (37.0-47.0); HEMOGLOBIN 8.4 g/dL (12.0-16.0); MCH 25.7 PG (27-31); MCHC 29.1 g/dL (33-37); MCV 88.4 FL (81-99); MPV 8.9 FL (7.4-10.4); RBC 3.27 XMIL (4.2-5.4); RDW 15.8 % (11.5-14.5); WBC 9.36 X1000 (4.8-10.8)
[2019-10-05 07:23] LABS: CALCIUM 8.7 mg/dL (8.8-10.2); POTASSIUM 4.1 mmol/L (3.5-5.1)
[2019-10-05] MEDS: DULCOLAX PR SCH ×2 (08:31→23:43)
[2019-10-05] MEDS: LACTULOSE PO SCH ×2 (08:32→23:42)
[2019-10-05] MEDS: ELIQUIS PO SCH ×2 (08:32→23:41)
[2019-10-05] MEDS: ZITHROMAX PO SCH (08:32)
[2019-10-05] MEDS: ICAR-C PO SCH ×2 (08:32→23:41)
[2019-10-05] MEDS: COLACE PO SCH ×2 (08:32→23:42)
[2019-10-05] MEDS: CARDIZEM CD PO SCH (08:32)
[2019-10-05] MEDS: FOLIC ACID PO SCH (08:32)
[2019-10-05] MEDS: TOPROL XL PO SCH (08:32)
[2019-10-05] MEDS: LASIX IV SCH (08:35)
[2019-10-05] MEDS: MIRALAX PO SCH ×2 (08:40→23:41)
--- NOTE | 2019-10-05 11:06 | NEPHROLOGY PROGRESS NOTE ---
DATE: 10/05/2019 SUBJECTIVE: The patient is sitting up in bed. She asks when she can go home. OBJECTIVE: Vital Signs: Temperature 97.5 degrees, pulse 86, respiratory rate 20, blood pressure 127/59. Intake 559 mL, output 1.9 L. General: This is an elderly female, sitting up in the chair. She is awake and alert. She is in no acute distress. HEENT: Normocephalic, atraumatic. LETTY. Neck: Supple. Trace JVD. Cardiovascular: Regular rate and rhythm with a gallop. Pulmonary: She is clear bilaterally. She has equal excursion today. Abdomen: Soft with positive bowel sounds. Obese. : She is voiding. Extremities: She has chronic lower extremity lymphedema, but she does have some wrinkling to the skin indicative of improved edema. Integumentary: Skin is warm and dry. Neurologic: Nonfocal. LABORATORY DATA: Sodium 139, potassium 3.3, CO2 of 36, creatinine 1.0 (1.2, 1.5). ASSESSMENT AND PLAN: 1. Cardiorenal/decompensated heart failure. She continues on furosemide 80 mg intravenously daily. Her urine output has been excellent. She has at least 12 liters negative fluid volume over the course of the hospitalization. She is on a fluid restriction. From a renal perspective, she can be transitioned over to oral medication, and at the discretion of the primary, can be discharged. We will sign off today. rg 2. Electrolytes and acid-base balance. She is slightly alkalotic secondary to the increased diuretic requirements. 3. Anemia. This has been fairly stable. Will defer to primary. 4. Hypertension, controlled. 5. Fluid volume. See above for plan. Dictated by BRITTANIE Fraire for Dmitry Hernandez MD cc: Dmitry Hernandez MD [facility]
[2019-10-05] MEDS: ROCEPHIN 1 GM in NS 50 ML IV SCH (13:21)
[2019-10-05] MEDS: PERCOCET-5 PO PRN (15:38)
--- NOTE | 2019-10-05 16:52 | PROGRESS NOTE ---
DATE: 10/05/2019 SUBJECTIVE: The patient is resting comfortably in bed. No acute events noted overnight. She states that she wants to go home. OBJECTIVE: Vital Signs: Temperature 98.3 degrees, blood pressure 128/63, heart rate 91, respirations 17, and O2 saturation 97% on 3 L nasal cannula. Intake 555 mL. Urine output 1.9 L. General: This is a chronically ill-appearing elderly female sitting at the edge of the bed in no acute distress. Heart: S1, S2 normal. Tachycardic. Lungs: Diminished breath sounds bilaterally. No wheezing. No rales. No rhonchi. Abdomen: Positive bowel sounds. Soft, nontender, nondistended. Extremities: 1+ edema bilaterally. Neurologic: The patient is alert and oriented x3. LABORATORY: Hemoglobin 8.4, hematocrit 28, and platelets 287,000. Sodium 144, potassium 4.1, chloride 96, CO2 37, BUN 23, creatinine 1, and glucose 90. ASSESSMENT AND PLAN: 1. Chronic hypoxemic respiratory failure. Stable. The patient on her baseline O2 requirement. 2. Acute diastolic congestive heart failure exacerbation. The patient remains on diuretic therapy. We will await further recommendations. 3. Acute kidney injury, resolved. 4. Atrial fibrillation. Continue on Cardizem and Eliquis. 5. Iron deficiency anemia. Continue with iron replacement. 6. Folate deficiency. Continue with folic acid replacement. 7. Urinary tract infection secondary to Escherichia coli. Resolved. 8. Chronic obstructive pulmonary disease. Stable. 9. 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 Continue on Eliquis. 10. 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 Aware. 11. Obstructive sleep apnea. Continue on CPAP at night. 12. Continue with physical therapy. 13. Disposition. The patient can be discharged home once cleared by the case picker. cc: Shanda Staley MD MTDElizabeth
[2019-10-05] MEDS: MIRAPEX PO SCH (18:01)
[2019-10-05] MEDS: SINGULAIR PO SCH (23:41)
[2019-10-05] MEDS: TYLENOL PO PRN (23:42)
[2019-10-06] MEDS: NITROGLYCERIN TOP SCH ×3 (02:41→13:09)
[2019-10-06] MEDS: DUONEB (A & A) INH SCH ×4 (03:03→15:41)
[2019-10-06] MEDS: PRILOSEC PO SCH (06:16)
[2019-10-06 07:19] LABS: HEMATOCRIT 29.4 % (37.0-47.0); HEMOGLOBIN 8.6 g/dL (12.0-16.0)
[2019-10-06 07:37] LABS: CALCIUM 9.1 mg/dL (8.8-10.2); CREATININE 0.9 mg/dL (0.5-0.9)
[2019-10-06] MEDS: LASIX IV SCH ×2 (07:53→08:05)
[2019-10-06] MEDS: FOLIC ACID PO SCH ×2 (07:53→08:05)
[2019-10-06] MEDS: COLACE PO SCH ×2 (07:53→08:04)
[2019-10-06] MEDS: CARDIZEM CD PO SCH ×2 (07:53→08:04)
[2019-10-06] MEDS: ELIQUIS PO SCH ×2 (07:54→08:04)
[2019-10-06] MEDS: TOPROL XL PO SCH ×2 (07:54→08:05)
[2019-10-06] MEDS: LACTULOSE PO SCH ×2 (07:54→08:05)
[2019-10-06] MEDS: ZITHROMAX PO SCH ×2 (07:54→08:05)
[2019-10-06] MEDS: ICAR-C PO SCH ×2 (07:54→08:05)
[2019-10-06] MEDS: DULCOLAX PR SCH (08:04)
[2019-10-06] MEDS: MIRALAX PO SCH (08:05)
[2019-10-06] MEDS: ROCEPHIN 1 GM in NS 50 ML IV SCH ×2 (13:09→13:48)
--- NOTE | 2019-10-06 15:33 | PROGRESS NOTE ---
DATE: 10/06/2019 SUBJECTIVE: Patient denies shortness of breath or chest discomfort. She has diuresed at least 25 pounds since admission. OBJECTIVE: Vital Signs: Blood pressure 105/56, heart rate 91, oxygen saturation 95% on nasal cannula oxygen. Jugular venous distention suggests upper normal central venous pressure. Chest is clear to auscultation bilaterally. Cardiac Examination reveals an irregular rate and rhythm without appreciable murmur or gallop. Extremities demonstrate trace edema with prominent chronic venous stasis changes. Laboratory Data: Includes hematocrit 29.4, hemoglobin 8.6. Sodium 140, potassium 4.0, chloride 94, carbon dioxide 35, BUN 21, creatinine 0.9, glucose 98. IMPRESSION: 1. Acute on chronic congestive heart failure with preserved left ventricular ejection fraction. Suspect probably right-sided heart failure in the setting of obesity and obstructive sleep apnea as well as chronic obstructive pulmonary disease. Patient has improved nicely with diuresis. 2. Acute on chronic renal dysfunction. Cardiorenal syndrome evident. Patient's renal function back to baseline. 3. Chronic obstructive pulmonary disease. 4. Obstructive sleep apnea. Patient has had inconsistent compliance with CPAP. 5. Obesity. 6. Atrial fibrillation. 7. Hypertensive cardiovascular disease with left ventricular diastolic dysfunction. 8. Status post recent partial colectomy for tubulovillous adenoma. 9. Recent right hepatic vein thrombosis and superior mesenteric vein thrombosis postoperatively after partial colectomy. RECOMMENDATIONS: 1. Agree with plans to discharge the patient. Suggests switching patient to torsemide 40 mg p.o. daily. 2. Continue anticoagulation with Eliquis 5 mg p.o. b.i.d. 3. Patient advised to limit sodium intake and weigh daily. Patient advised to call our office should she have more than a 3 pound weight gain in 48 hours or a 5 pound weight gain in 5 days. 4. I would be glad to see the patient in followup in approximately 2 weeks. cc: Pradeep Lea MD
[2019-10-06 15:50] VITALS: BP 123/56
[2019-10-06] MEDS ORDERED: ELIQUIS PO SCH (21:00)
--- NOTE | 2019-10-07 07:45 | DISCHARGE SUMMARY ---
ADMISSION DATE: 09/26/2019 DISCHARGE DATE: 10/06/2019 DISCHARGE DISPOSITION: Home. DISCHARGE CONDITION: Hemodynamically stable. The patient is breathing well on her home oxygen. She denies any chest pain, shortness of breath at rest, nausea, vomiting, abdominal pain. We discussed about following up with outpatient contour grinder as well as a regular doctor. We discussed about medications including diuretics, blood thinners, sleep apnea. Her daughter is at bedside. All of their questions have been answered. DISCHARGE DIAGNOSES: 1. Acute on chronic hypoxic respiratory failure. 2. Acute pulmonary edema and bilateral pleural effusion. 3. Acute asthma exacerbation. 4. Acute cystourethritis without hematuria due to Escherichia coli. 5. Suspected right lower lobe pneumonia. 6. Atrial fibrillation with rapid ventricular response. 7. Acute kidney injury due to diuretic use. 8. Iron deficiency anemia. OTHER DIAGNOSES: 1. History of obstructive sleep apnea. 2. History of chronic hypoxic respiratory failure due to chronic obstructive pulmonary disease. 3. 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 4. History of paroxysmal atrial fibrillation. 5. History of obstructive sleep apnea, not 100% compliant on CPAP. 6. History of essential hypertension. 7. History of obesity. DISCHARGE MEDICATIONS: 1. Pramipexole 0.25 mg at nighttime. 2. Albuterol ipratropium 3 mL inhaled every 4 to 6 hours as needed for shortness of breath. 3. Montelukast 10 mg at nighttime. 4. Nexium 20 mg daily. 5. Symbicort 2 puffs inhaled b.i.d. 6. Tizanidine 2 mg t.i.d. as needed for muscle spasm. 7. Metoprolol succinate extended release 25 mg daily. 8. Vitamin D3, 2000 units p.o. daily. 9. Alprazolam 0.25 mg daily. 10. Diltiazem controlled release 240 mg daily. 11. Torsemide 40 mg daily. 12. Eliquis 5 mg b.i.d. 13. Iron carbonyl ascorbic acid 1 tablet b.i.d. VITAL SIGNS: At time of discharge, temperature 98.4 degrees, pulse 91, respiratory 17, blood pressure 105/56, saturating 95% on 2 L nasal cannula. PHYSICAL EXAMINATION: General: Not in acute distress. HEENT: Oral cavity is moist. Lungs: Air entry bilaterally equal. No wheeze, rhonchi or crackles. Mildly decreased air entry in the infrascapular region with inspiratory crackles. Cardiovascular: S1, S2 normal. Regular. No murmur, rub or gallop. Abdomen: Obese, soft, nontender. Extremities: She has bilateral lower extremity edema extending up to midshin level. Neurologic: She is alert and oriented x3. LABORATORY DATA: At the time of discharge, WBC 9.3, hemoglobin 8.6, platelet 287,000. BUN 21, creatinine 0.9. MICROBIOLOGY: Urine culture on presentation was growing Escherichia coli. SIGNIFICANT IMAGING DURING HOSPITAL ADMISSION: 1. Chest x-ray on September 26 had cardiomegaly with pulmonary edema, small pleural effusions and suspicion of underlying pneumonia. 2. Abdomen arteriogram on admission had arterial narrowing at the takeoff of iliac artery, it did not comment on veins though. 3. Echocardiogram on September 27 had ejection fraction of 70% and pulmonary artery pressure of 50 mmHg with mild pulmonary regurgitation, moderate left atrial enlargement. 4. Chest CT on September 30 had COPD, pulmonary edema, cardiomegaly and right-sided pleural effusion. 5. Chest x-ray on October 04 had mild decrease in vascular congestion. 6. Electrocardiogram on presentation had atrial fibrillation, right bundle branch block. 7. Electrocardiogram September 30 had atrial fibrillation, right bundle branch block. 8. Other diagnosis: Cardiorenal syndrome. HOSPITAL COURSE SUMMARY: Ms. Kaminski is an 84-year-old lady who presented on 09/26/2019 with chief complaints of shortness of breath of about 3 days duration. She does have prior history of obstructive sleep apnea, COPD and chronic hypoxic respiratory failure. In the emergency room, she was found to have a temperature of 98.4 degrees, pulse of 92 with atrial fibrillation, respiratory rate of 18, and blood pressure of 149/102. She was initially saturating 96% on nasal cannula. She was diagnosed with acute congestive heart failure with preserved ejection fraction exacerbation and she was started on intravenous antibiotics and intravenous diuretics. It was thought that her acute on chronic hypoxic respiratory failure was due to acute chronic obstructive pulmonary disease exacerbation, acute heart failure with preserved ejection fraction exacerbation leading to acute pulmonary edema and bilateral pleural effusion, and she improved with inhaled bronchodilators, intravenous antibiotics and intravenous diuretics which was later on changed to oral diuretics, and her steroids were also stopped. At the time of discharge, she is breathing well on her baseline O2 requirements and is transitioned to oral diuretic. She should continue it and outpatient follow up with repeat electrolytes. She was treated with antibiotics for suspected right lower lobe pneumonia as well as E coli UTI and she has so far completed at least 7 days of intravenous antibiotics course and the plan was to not give her any more antibiotics. Her Eliquis dose was adjusted based on her kidney function and she will be discharged on 5 mg b.i.d. Eliquis dose for her atrial fibrillation as well as recent history of superior mesenteric vein and hepatic vein thrombosis diagnosed in June 2019 after colectomy. DISPOSITION: Plan of care was discussed with the patient and daughter at bedside. All of their questions were answered. The patient will be discharged home. Home physical therapy was not an option since the patient was receiving outpatient physical therapy for her edema, and daughter and the patient understood it. cc: Vineet Woodard MD
[2019-10-07] MEDS ORDERED: DEMADEX PO SCH (09:00)
== END 2019-10-06 16:28 | disposition home or self-care (01) | DRG 291 ==
LOC: SUPCPDRO → ED 16:01 → 4N 23:38 → SUATTDRO 23:38
PROVIDERS: ATTEND Internal Medicine